=== PATIENT | male | born 1960 | race Caucasian/White ===

== ENCOUNTER → 2020-05-23 14:58 | Outpatient (BNVA) | payer MEDICARE, SELFPAY | PROVIDERS: PCP Internal Medicine; Referring Provider Internal Medicine; Visit Provider Internal Medicine | DX: R60.0 Localized edema (principal); R06.02 Shortness of breath; I10 Essential (primary) hypertension; G47.33 Obstructive sleep apnea (adult) (pediatric); E66.01 Morbid (severe) obesity due to excess calories; Z68.43 Body mass index [BMI] 50.0-59.9, adult; Z99.89 Dependence on other enabling machines and devices | CPT/HCPCS: 93005; 99212 ==

== ENCOUNTER → 2020-11-09 14:49 | Outpatient (REF) | payer MEDICARE, SELFPAY ==
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
== END ==
LOC: HO.CARD 14:49
PROVIDERS: Visit Provider Internal Medicine
DX: R60.0 Localized edema (principal)
CPT/HCPCS: 93306; Q9957

== ENCOUNTER → 2020-11-28 14:43 | Outpatient (BNVA) | payer MEDICARE, SELFPAY | PROVIDERS: PCP Internal Medicine; Visit Provider Internal Medicine | DX: R60.0 Localized edema (principal); R06.02 Shortness of breath; I10 Essential (primary) hypertension; G47.33 Obstructive sleep apnea (adult) (pediatric); E66.01 Morbid (severe) obesity due to excess calories; Z99.89 Dependence on other enabling machines and devices | CPT/HCPCS: 99212 ==

== ENCOUNTER → 2021-04-17 10:26 | Outpatient (BNVA) | payer MEDICARE, SELFPAY | PROVIDERS: PCP Internal Medicine; Visit Provider Surgery | DX: K62.89 Other specified diseases of anus and rectum (principal) | CPT/HCPCS: 99202 ==

== ENCOUNTER 2021-08-28 14:35 | Outpatient (REF) | payer MEDICARE, SELFPAY ==
[2021-08-28 16:25] LABS: Appearance Urine CLEAR; Color Urine YELLOW; Glucose Urine UA >=1000 MG/DL (NEG); Leukocyte Esterase Urine NEG (NEG); Nitrite Urine NEG (NEG); UACC Culture Trigger NO; Urine Blood TRACE (NEG); Urine Ketones 5 MG/DL (NEG); Urine Protein NEG (NEG-TRACE)
[2021-08-28 16:36] LABS: Estimated Average Glucose 258 mg/dL; Hemoglobin A1c % 10.6 %
[2021-08-28 16:49] LABS: RBC Urine 0-2 /HPF (0); Squamous Epithelial Cell Urine TRACE /LPF; WBC Urine 0-2 /HPF (0-4)
[2021-08-28 17:35] LABS: Alanine Aminotransferase 32 U/L (0-40); Alkaline Phosphatase 82 U/L (39-117); Anion Gap 12 (12-20); Aspartate Amino Transferase 22 U/L (5-37); Bilirubin Total 0.8 mg/dL (0.0-1.0); Blood Urea Nitrogen 19 mg/dL (9-16); Calcium 9.8 mg/dL (8.4-10.2); Carbon Dioxide 26 mmol/L (22-29); Chloride 103 mmol/L (96-108); Estimated Glomerular Filt Rate 60; Glucose Random 451 mg/dL (60-115); Potassium 4.4 mmol/L (3.3-5.1); Sodium 137 mmol/L (135-145); Total Protein 7.1 g/dL (6.5-8.0)
== END 2021-08-28 14:36 | disposition home or self-care (01) ==
LOC: HO.HMGCLDS 14:35
PROVIDERS: Visit Provider Physician Assistant
DX: R35.0 Frequency of micturition (principal)
CPT/HCPCS: 36415; 80053; 81001; 83036

== ENCOUNTER 2021-09-29 11:52 | Outpatient (REF) | payer MEDICARE, SELFPAY ==
--- NOTE | ~2021-09-29 | XR_ITS ---
EXAMINATION: XR BILATERAL HIPS WITH AP PELVIS CLINICAL INFORMATION: Hip pain COMPARISON: None TECHNIQUE: AP view of the pelvis is performed. Each hip is also imaged in AP and frog-lateral projections. There are total of 5 views. FINDINGS: Bony pelvis is intact and shows no destructive process. The SI joints and pubis show no diastases. There are degenerative changes lumbar spine with disc narrowing L3-L5. The hips show no fracture or dislocation or destructive process. There is no hip joint narrowing or erosive change or visible chondrocalcinosis. Soft tissue planes around the hips are unremarkable. XR/XR hip BI w PEL1V IMPRESSION: 1. Degenerative disc changes lower lumbar spine. 2. Unremarkable bilateral hips.
== END 2021-09-29 11:53 | disposition home or self-care (01) ==
LOC: HO.HMGCX 11:52
PROVIDERS: PCP Internal Medicine; Visit Provider Physician Assistant
DX: M25.552 Pain in left hip (principal)
CPT/HCPCS: 73521

== ENCOUNTER 2021-11-27 12:10 | Outpatient (REF) | payer MEDICARE, SELFPAY ==
[2021-11-27 13:43] LABS: Estimated Average Glucose 226 mg/dL; Hemoglobin A1c % 9.5 %
[2021-11-27 13:58] LABS: Alanine Aminotransferase 22 U/L (0-40); Albumin Level 3.9 g/dL (3.5-5.0); Alkaline Phosphatase 70 U/L (39-117); Anion Gap 12 (12-20); Aspartate Amino Transferase 17 U/L (5-37); Bilirubin Total 0.7 mg/dL (0.0-1.0); Blood Urea Nitrogen 20 mg/dL (9-16); Calcium 9.5 mg/dL (8.4-10.2); Carbon Dioxide 27 mmol/L (22-29); Chloride 102 mmol/L (96-108); Estimated Glomerular Filt Rate > 60; Glucose Random 221 mg/dL (60-115); Potassium 3.9 mmol/L (3.3-5.1); Sodium 137 mmol/L (135-145)
== END 2021-11-27 12:11 | disposition home or self-care (01) ==
LOC: HO.MANLDS 12:10
PROVIDERS: PCP Physician Assistant; Visit Provider Physician Assistant
DX: E11.9 Type 2 diabetes mellitus without complications (principal)
CPT/HCPCS: 36415; 80053; 83036

== ENCOUNTER → 2021-11-28 14:54 | Outpatient (BNVA) | payer MEDICARE, SELFPAY | PROVIDERS: PCP Internal Medicine; Visit Provider Internal Medicine | DX: I11.0 Hypertensive heart disease with heart failure (principal); I50.812 Chronic right heart failure; G47.33 Obstructive sleep apnea (adult) (pediatric); E66.01 Morbid (severe) obesity due to excess calories; Z99.89 Dependence on other enabling machines and devices; Z68.43 Body mass index [BMI] 50.0-59.9, adult | CPT/HCPCS: 93005; 99212 ==

== ENCOUNTER → 2022-02-13 08:19 | Outpatient (REF) | payer MEDICARE, SELFPAY ==
--- NOTE | 2022-02-13 08:22 | CA_ITS ---
Transthoracic Echocardiogram Patient (Last, First, Middle): George Guy M Gender: Male Date of : 1960 Age: 61 Procedure Date: 02/13/2022 Procedure Type: Transthoracic Echocardiogram Location: OP Height: 172.72 cm Weight: 151.96 kg BSA: 2.54 m2 Heart Rate: 63 bpm BP: 130 / 70 mmHg Well Tester: SB Referring MD: Dolores SAVAGE Symptoms: CHRONIC SYSTOLIC HF I50.22 Study Quality: Adequate w Contrast ECG Rhythm: Sinus Conclusions: - The left ventricular systolic function is normal. The calculated ejection fraction is 64% by biplane method. - No obvious valvular pathology seen on this study. Findings Procedure Information Contrast agent, definity, is being given per protocol without apparent complications. Left Ventricle Normal left ventricular cavity size. There is normal left ventricular wall thickness. The left ventricular systolic function is normal. The calculated ejection fraction is 64% by biplane method. There is no evidence of regional wall motion abnormalities. Diastolic function is normal for age. Right Ventricle Mildly increased right ventricular cavity size. There is normal right ventricular systolic function. Atria The left atrium is mildly dilated. The right atrium is normal in size. Aortic Valve There is a normal trileaflet aortic valve. There is no aortic valve stenosis. There is no aortic valve regurgitation. Mitral Valve The mitral valve appears normal. There is no mitral valve regurgitation. There is no mitral valve stenosis. Pulmonic Valve The pulmonic valve is likely normal. Tricuspid Valve There is trace tricuspid valve regurgitation. The pulmonary artery systolic pressure is normal. Great Vessels The aortic annulus, sinuses of valsalva, and asc aorta are normal in size. Venous The inferior vena cava was not well visualized. Pericardium/Pleural There is no evidence of pericardial effusion. Prior Study Comparison No significant change compared to prior study dated: 11/09/2020. Recommendations, Care & Conclusions No obvious valvular pathology seen on this study. Measurements 2D Linear Measurements IVSd: 0.90 0.6-0.9/0.6-1.0 cm LVIDd: 6.06 3.9-5.3/4.2-5.9 cm LVIDd Index: 2.39 2.4-3.2/2.2-3.1 cm/m2 LVIDs: 3.91 2.0-3.6 cm LVPWd: 1.11 0.7-1.1 cm LA Diam: 4.90 2.7-3.8/3.0-4.0 cm LAIDs Index: 1.93 1.5-2.3 cm/m2 LV Mass: 315.13 67-162/88-224 g LV Mass Index: 124.07 43-95/49-115 g/m2 LVOT Diam: 2.10 3.0+(-)1.3 cm 2D Systolic Function EF 4C: 63.80 >55% EF 2C: 65.90 >55% EF BiP: 63.70 >55% Mitral Valve MV Pk E: 0.87 MV PK A: 0.74 MV Decel Time: 163.00 E/A: 1.20 E'Lateral: 8.49 E'Medial: 6.85 E/E' Med: 12.60 E/E' Lat: 10.20 PHT: 48.00 MVA PHT: 4.58 Decel [place]: 5.32 Aortic Valve AoV Pk Yovanny: 1.41 AoV Mn Yovanny: 0.95 AoV VTI: 0.28 AoV Pk Grad: 8.00 Aov Mn Grad: 4.00 GAMAL Cont.VTI: 3.30 LVOT LVOT Pk Yovanny: 1.21 LVOT Mn Yovanny: 0.79 LVOT VTI: 0.27 LVOT Pk Grad: 6.00 LVOT Mn Grad: 3.00 LVOT Diam: 2.10 LVOT Area: 3.46 Diastolic Function MV Pk E: 0.87 MV Pk A: 0.74 E/A: 1.20 E'Medial: 6.85 E/E' Med: 12.60 E' Laterial: 8.49 E/E' Lat: 10.20 Right Ventricle TAPSE (mm): 17.80 TVS' Yovanny: 12.70 Tricuspid Valve TR Pk Yovanny: 2.63 TR Pk Grad: 28.00 RVSP: 28.00 Great Vessels Aorta Sinus of Valsalva: 3.30 2.0-3.5 cm Ao Asc: 3.10 2.1-3.4 cm Pulmonary Valve PV Pk Yovanny: 1.38 Peak PV Grad: 8.00 Updated in Other Vendor System with Status of Final Jnoathan Grace MD electronically signed on 02/14/2022 12:29:25 PM with status of Final
== END ==
LOC: HO.CARD 08:19
PROVIDERS: PCP Internal Medicine; Visit Provider Physician Assistant
DX: I50.22 Chronic systolic (congestive) heart failure (principal)
CPT/HCPCS: 93306; Q9957

== ENCOUNTER 2022-03-01 15:10 | Outpatient (REF) | payer MEDICARE, SELFPAY ==
[2022-03-01 16:45] LABS: Estimated Average Glucose 126 mg/dL
[2022-03-01 16:50] LABS: Alanine Aminotransferase 21 U/L (0-40); Albumin Level 4.2 g/dL (3.5-5.0); Alkaline Phosphatase 63 U/L (39-117); Anion Gap 15 (12-20); Aspartate Amino Transferase 18 U/L (5-37); Bilirubin Total 0.9 mg/dL (0.0-1.0); Blood Urea Nitrogen 20 mg/dL (9-16); Calcium 9.4 mg/dL (8.4-10.2); Carbon Dioxide 30 mmol/L (22-29); Chloride 101 mmol/L (96-108); Estimated Glomerular Filt Rate 54; Glucose Random 100 mg/dL (60-115); Potassium 4.1 mmol/L (3.3-5.1); Sodium 142 mmol/L (135-145); Total Protein 7.6 g/dL (6.5-8.0)
== END 2022-03-01 15:11 | disposition home or self-care (01) ==
LOC: HO.HMGCLDS 15:10
PROVIDERS: PCP Internal Medicine; Visit Provider Physician Assistant
DX: E11.9 Type 2 diabetes mellitus without complications (principal)
CPT/HCPCS: 36415; 80053; 83036

== ENCOUNTER 2022-05-31 08:12 | Outpatient (REF) | payer MEDICARE, SELFPAY ==
[2022-05-31 11:32] LABS: Estimated Average Glucose 128 mg/dL; Hemoglobin A1c % 6.1 %
== END 2022-05-31 08:13 | disposition home or self-care (01) ==
LOC: HO.HMGCLDS 08:12
PROVIDERS: PCP Internal Medicine; Visit Provider Physician Assistant
DX: E11.9 Type 2 diabetes mellitus without complications (principal)
CPT/HCPCS: 36415; 83036

== ENCOUNTER 2022-09-07 13:39 | Outpatient (REF) | payer MEDICARE, SELFPAY ==
[2022-09-07 16:58] LABS: Appearance Urine Turbid; Color Urine Yellow; Glucose Urine UA Negative (Negative); Leukocyte Esterase Urine Negative (Negative); Nitrite Urine Negative (Negative); PH 5.5 (5.0-9.0); Urine Blood Negative (Negative); Urine Ketones Negative (Negative); Urine Protein Negative (Neg-Trace)
[2022-09-07 17:00] LABS: Estimated Average Glucose 123 mg/dL; Hemoglobin A1c % 5.9 %
[2022-09-07 17:14] LABS: Alanine Aminotransferase 22 U/L (0-40); Albumin Level 4.2 g/dL (3.5-5.0); Alkaline Phosphatase 64 U/L (39-117); Anion Gap 15 (12-20); Aspartate Amino Transferase 17 U/L (5-37); Blood Urea Nitrogen 26 mg/dL (9-16); Calcium 9.4 mg/dL (8.4-10.2); Carbon Dioxide 27 mmol/L (22-29); Chloride 104 mmol/L (96-108); Estimated Glomerular Filt Rate > 60; Glucose Random 98 mg/dL (60-115); Sodium 142 mmol/L (135-145)
== END 2022-09-07 13:40 | disposition home or self-care (01) ==
LOC: HO.HMGCLDS 13:39
PROVIDERS: PCP Internal Medicine; Visit Provider Physician Assistant
DX: R35.0 Frequency of micturition (principal)
CPT/HCPCS: 36415; 80053; 81003; 83036

== ENCOUNTER 2022-09-12 12:14 | Outpatient (REF) | payer MEDICARE, SELFPAY ==
--- NOTE | ~2022-09-12 | XR_ITS ---
EXAMINATION: XR SHOULDER, LEFT CLINICAL INFORMATION: Pain COMPARISON: None TECHNIQUE: AP external rotation, Grashey, scapular Y, and axillary views of the left shoulder. FINDINGS: No acute fracture or dislocation. There is joint space narrowing and subchondral cystic changes. Degenerative changes of the acromioclavicular joint. XR/XR shoulder LT min 2V IMPRESSION: Moderate degenerative changes of the left shoulder joint.
== END 2022-09-12 12:15 | disposition home or self-care (01) ==
LOC: HO.HMGCX 12:14
PROVIDERS: PCP Internal Medicine; Visit Provider Physician Assistant
DX: M25.512 Pain in left shoulder (principal)
CPT/HCPCS: 73030

== ENCOUNTER 2022-12-01 06:57 | Outpatient (REF) | payer MEDICARE, SELFPAY ==
[2022-12-01 11:30] LABS: MANUAL DIFF FLAG NO
[2022-12-01 11:32] LABS: Basophils Absolute Auto 0.1 X10*3/uL (0.0-0.2); Basophils Percent Auto 0.7 % (0-2); Eosinophils Absolute Auto 0.1 X10*3/uL (0.0-0.4); Eosinophils Percent Auto 1.1 % (0-4); Hematocrit 41.9 % (42.0-52.0); Hemoglobin 13.6 g/dl (14.0-18.0); Imm Gran Abs Auto 0.11 X10*3/uL (0.00-0.03); Imm Gran Pct Auto 1.3 % (0.0-0.4); Lymphocytes Absolute Auto 2.4 X10*3/uL (1.2-4.9); Lymphocytes Percent Auto 29.6 % (20-40); Mean Corpuscular HGB Conc 32.5 g/dl (31.0-36.0); Mean Corpuscular Hemoglobin 29.5 pg (27.0-33.0); Mean Corpuscular Volume 90.9 fL (80.0-98.0); Mean Platelet Volume 11.1 fL (9.4-12.4); Monocytes Absolute Auto 0.7 X10*3/uL (0.1-1.2); Neutrophils Absolute Auto 4.9 x10*3/uL (2.0-8.3); Neutrophils Percent Auto 59.3 % (45-73); Platelet Count 248 X10*3/uL (160-400); Red Blood Count 4.61 X10*6/uL (4.60-5.80); Red Cell Distribution Width 13.4 % (11.0-16.0); White Blood Count 8.2 X10*3/uL (4.8-10.8)
[2022-12-01 11:44] LABS: Estimated Average Glucose 123 mg/dL; Hemoglobin A1C 148.9588 umol/L; Hemoglobin A1c % 5.9 %
[2022-12-01 11:55] LABS: Alanine Aminotransferase 21 U/L (0-40); Albumin Level 4.1 g/dL (3.5-5.0); Alkaline Phosphatase 62 U/L (39-117); Anion Gap 13 (12-20); Aspartate Amino Transferase 15 U/L (5-37); Blood Urea Nitrogen 30 mg/dL (9-16); Calcium 9.3 mg/dL (8.4-10.2); Carbon Dioxide 27 mmol/L (22-29); Chloride 107 mmol/L (96-108); Cholesterol 175 mg/dL; Estimated Glomerular Filt Rate > 60; Glucose Fasting 127 mg/dL (60-99); HDL Cholesterol 45 mg/dL; LDL Cholesterol Calculated 101 mg/dl; Potassium 4.3 mmol/L (3.3-5.1); Sodium 143 mmol/L (135-145); Triglycerides 145 mg/dL
[2022-12-01 11:58] LABS: Creatinine Urine 194.67 mg/dL; Microalbum/Creatinine Ratio Ur 4.1 ug/mg cr
== END 2022-12-01 06:58 | disposition home or self-care (01) ==
LOC: HO.HMGCLDS 06:57
PROVIDERS: PCP Internal Medicine; Visit Provider Physician Assistant
DX: E11.9 Type 2 diabetes mellitus without complications (principal)
CPT/HCPCS: 36415; 80053; 80061; 82043; 83036; 85025

== ENCOUNTER 2023-01-31 15:10 | Outpatient (REF) | payer MEDICARE, SELFPAY ==
[2023-01-31 17:07] LABS: Alanine Aminotransferase 25 U/L (0-40); Albumin Level 4.3 g/dL (3.5-5.0); Alkaline Phosphatase 71 U/L (39-117); Aspartate Amino Transferase 17 U/L (5-37); Bilirubin Direct 0.3 mg/dL (0.0-0.5); Bilirubin Total 1.1 mg/dL (0.0-1.0); Total Protein 7.8 g/dL (6.5-8.0)
== END 2023-01-31 15:11 | disposition home or self-care (01) ==
LOC: HO.HMGCLDS 15:10
PROVIDERS: PCP Internal Medicine; Visit Provider Podiatrist
DX: B35.1 Tinea unguium (principal)
CPT/HCPCS: 36415; 80076

== ENCOUNTER 2023-02-18 13:33 | Outpatient (AMB) | payer MEDICARE, SELFPAY ==
--- NOTE | 2023-02-18 13:38 | MHC.OFFVIS ---
Intake Vital Signs 02/18/23 13:40 Height 5 ft 9 in Weight 350 lb 8.56 oz BMI 51.8 BP 136/76 Blood Pressure Location Lt brachial Position Sitting Pulse 67 Intake Visit Reasons: 1 year follow up Intake Note: 1 year follow up Financial Legal Assistant Required: No Accompanied by: Self / Same As Patient Allergies No Known Allergies [No Known Allergies*] Allergy (Verified 02/18/23 13:40) Medication List - Last Reconciled 02/18/23 by Jonathan Grace MD bumetanide 2 mg PO DAILY famotidine 40 mg PO BID lisinopril 20 mg PO BID meloxicam 15 mg PO DAILY metformin ER 500 mg PO DAILY metoprolol succinate ER 25 mg PO DAILY HPI HPI Comments History of Present Illness Details George returns for follow-up regarding leg swelling. Thought to be mainly related to obesity and right heart failure. He also has obstructive sleep apnea on CPAP. He has previously seen vascular physician at [facility] and was felt that the swelling was rather systemic in etiology and not localized venous. Overall, he states he is doing fine. No clear complaints like angina or shortness of breath the limits of his activity. No significant leg swelling 2. In the past, no known coronary disease myocardial infarction or cardiomyopathy. Generally, seems to be getting along fine. [facility] Medical History (Updated 11/28/21 @ 15:20 by Jonathan Grace MD) Anal pain Chronic right heart failure Essential hypertension Leg edema Morbid obesity due to excess calories GAYATHRI on CPAP SOB (shortness of breath) Surgical History History of ankle surgery History of hydrocelectomy Family History Father No problems noted. Mother No problems noted. Review of Systems Const Denies weakness ENT Denies dizziness Card Denies chest pain, Denies chest pain with activity, Denies syncope, Denies rapid heart rate, Denies pedal edema, Denies edema, Denies leg edema, Denies lightheadedness, Denies palpitations, Denies dyspnea, Denies dyspnea on exertion and Denies orthopnea Resp Denies cough, Denies dyspnea and Denies dyspnea on exertion GI Denies hematochezia and Denies change in stool character Musc Denies abnormal gait, Denies muscle cramps, Denies muscle weakness, Denies numbness, Denies radiating pain into limb and Denies tingling Neuro Denies abnormal gait, Denies dizziness, Denies syncope, Denies numbness, Denies tingling and Denies weakness Endo Denies palpitations Physical Exam Vital Signs: Last Vital Signs Pulse 67 02/18/23 13:40 BP 136/76 02/18/23 13:40 BMI result Body Mass Index 51.8 Const General: comfortable and no acute distress Orientation/consciousness: patient oriented x3 HEENT Other: Unremarkable Head: Yes normal to inspection Neck Neck: Yes normal visual inspection Chest Chest palpation & inspection: normal inspection of the chest Resp Auscultation: clear to auscultation bilaterally Cardio Palpation: normal PMI Heart sounds: S1 normal heart sound present, S2 normal heart sound present, no gallops, no murmurs and no rubs GI Palpation (GI): Soft to palpation Back/Spine/Pelvis Other: unremarkable Skin General skin exam: no rashes or lesions noted Neuro General: patient oriented x3 Extrem General: Yes normal to inspection Psych Mental Status: mental status grossly normal Office Procedures EKG Details: EKG has baseline artifact. Underlying rhythm is sinus 67/Min; no overt ST-T changes. Normal NC/[place]. [id number], Complete Assessment & Plan Assessment & Plan (1) Chronic right heart failure: Code(s): I50.812 - Chronic right heart failure Plan: Cardiac studies reviewed. Echocardiogram with LVEF 65-70%; no significant valvular pathology or pulmonary hypertension. In the previous study, there was mild pulmonary hypertension. Stress myocardial perfusion imaging study does not show any ischemia or infarction. Cardiac BNP in the past well within normal limits but could be false negative due to obesity. Overall, he does not really have any major volume overload. Leg swelling looks well controlled. Continue Bumex. Last creatinine is 1.12. BUN is 30. Potassium 4.3. (2) Essential hypertension: Code(s): I10 - Essential (primary) hypertension Plan: Stable. No changes with lisinopril/metoprolol. (3) GAYATHRI on CPAP: Code(s): G47.33 - Obstructive sleep apnea (adult) (pediatric); Z99.89 - Dependence on other enabling machines and devices Plan: Continue CPAP. (4) Morbid obesity due to excess calories: Code(s): E66.01 - Morbid (severe) obesity due to excess calories Plan: He is still markedly overweight, but not sure if he can lose any meaningful weight. In the past, he did not want to do any weight loss surgery as there was a concern with his 's health. She just got a liver transplant. Plan Follow-up in 1 year. Coding Level of Care Code Est Pt Level 4 (92904) Diagnoses Chronic right heart failure I50.812 Essential hypertension I10 GAYATHRI on CPAP G47.33; Z99.89 Morbid obesity due to excess calories E66.01 CPT Codes EKG - CPT: 56752-[id number], Complete ([id number])
[2023-02-18 13:40] VITALS: BP 136/76; PULSE 67; BMI 51.8
== END 2023-02-18 13:57 | disposition home or self-care (01) ==
PROVIDERS: PCP Internal Medicine; Referring Provider Internal Medicine; Visit Provider Internal Medicine
DX: I50.812 Chronic right heart failure (principal); I10 Essential (primary) hypertension; G47.33 Obstructive sleep apnea (adult) (pediatric); Z99.89 Dependence on other enabling machines and devices; E66.01 Morbid (severe) obesity due to excess calories
CPT/HCPCS: 93010; 99214

== ENCOUNTER → 2023-02-18 13:33 | Outpatient (BNVA) | payer MEDICARE, SELFPAY | PROVIDERS: PCP Internal Medicine; Referring Provider Internal Medicine; Visit Provider Internal Medicine | DX: I11.0 Hypertensive heart disease with heart failure (principal); I50.812 Chronic right heart failure; G47.33 Obstructive sleep apnea (adult) (pediatric); E66.01 Morbid (severe) obesity due to excess calories; Z99.89 Dependence on other enabling machines and devices; Z68.43 Body mass index [BMI] 50.0-59.9, adult | CPT/HCPCS: 93005; 99212 ==

== ENCOUNTER 2023-05-09 06:22 | Outpatient (REF) | payer MEDICARE, SELFPAY ==
[2023-05-09 11:04] LABS: MANUAL DIFF FLAG NO
[2023-05-09 11:28] LABS: Basophils Absolute Auto 0.1 X10*3/uL (0.0-0.2); Basophils Percent Auto 1.1 % (0-2); Eosinophils Absolute Auto 0.1 X10*3/uL (0.0-0.4); Eosinophils Percent Auto 1.5 % (0-4); Hematocrit 38.9 % (42.0-52.0); Hemoglobin 12.9 g/dl (14.0-18.0); Imm Gran Abs Auto 0.08 X10*3/uL (0.00-0.03); Imm Gran Pct Auto 1.1 % (0.0-0.4); Lymphocytes Absolute Auto 2.2 X10*3/uL (1.2-4.9); Lymphocytes Percent Auto 29.2 % (20-40); Mean Corpuscular HGB Conc 33.2 g/dl (31.0-36.0); Mean Corpuscular Volume 90.5 fL (80.0-98.0); Monocytes Absolute Auto 0.7 X10*3/uL (0.1-1.2); Monocytes Percent Auto 9.1 % (2-11); Neutrophils Absolute Auto 4.3 x10*3/uL (2.0-8.3); Platelet Count 234 X10*3/uL (160-400); Red Cell Distribution Width 13.2 % (11.0-16.0); White Blood Count 7.5 X10*3/uL (4.8-10.8)
[2023-05-09 11:31] LABS: Estimated Average Glucose 140 mg/dL; Hemoglobin A1c % 6.5 % (<6.0)
[2023-05-09 12:06] LABS: Alanine Aminotransferase 26 U/L (0-40); Albumin Level 3.8 g/dL (3.5-5.0); Alkaline Phosphatase 60 U/L (39-117); Anion Gap 15 (12-20); Aspartate Amino Transferase 18 U/L (5-37); Bilirubin Total 0.7 mg/dL (0.0-1.0); Blood Urea Nitrogen 18 mg/dL (9-16); Calcium 9.4 mg/dL (8.4-10.2); Carbon Dioxide 25 mmol/L (22-29); Chloride 104 mmol/L (96-108); Cholesterol 170 mg/dL (<200); Estimated Glomerular Filt Rate > 60; Glucose Random 142 mg/dL (60-115); HDL Cholesterol 40 mg/dL (>40); LDL Cholesterol Calculated 100 mg/dL (<100); Potassium 3.3 mmol/L (3.3-5.1); Sodium 141 mmol/L (135-145); Triglycerides 154 mg/dL (<150)
[2023-05-09 12:57] LABS: Alanine Aminotransferase 24 U/L (0-40); Albumin Level 3.7 g/dL (3.5-5.0); Alkaline Phosphatase 60 U/L (39-117); Aspartate Amino Transferase 18 U/L (5-37); Bilirubin Direct 0.2 mg/dL (0.0-0.5); Bilirubin Total 0.7 mg/dL (0.0-1.0); Total Protein 6.9 g/dL (6.5-8.0)
[2023-05-09 13:28] LABS: Creatinine Urine 212.48 mg/dL; Microalbum/Creatinine Ratio Ur 7.5 ug/mg cr (<30)
== END 2023-05-09 06:23 | disposition home or self-care (01) ==
LOC: HO.HMGCLDS 06:22
PROVIDERS: Physician Assistant; PCP Internal Medicine; Visit Provider Podiatrist
DX: B35.1 Tinea unguium (principal); E11.9 Type 2 diabetes mellitus without complications
CPT/HCPCS: 36415; 80053; 80061; 80076; 82043; 82248; 82570; 83036; 85025

== ENCOUNTER 2023-08-14 14:17 | Outpatient (AMB) | payer MEDICARE, SELFPAY ==
[2023-08-14 14:26] VITALS: BP 150/82; PULSE 80; O2SAT 97; BMI 52.2
--- NOTE | 2023-08-14 14:26 | A.OFFVIS_ITS ---
Intake Vital Signs 08/14/23 14:26 Height 5 ft 9 in Weight 353 lb 13.471 oz BMI 52.2 BP 150/82 H Blood Pressure Location Lt brachial Position Sitting Pulse 80 Pulse Source Pulse Oximeter Pulse Oximetry (%) 97 Oxygen Delivery Method Room Air Intake Visit Reasons: Obstructive sleep apnea Intake Note: pt is here for a long over due follow up and GAYATHRI, has new resperonics and need to check settings to start. [employer] Developer Required: No Allergies No Known Allergies [No Known Allergies*] Allergy (Verified 08/14/23 14:40) Medication List - Last Reconciled 08/14/23 by Ade Murrell MD bumetanide 2 mg PO DAILY famotidine 40 mg PO BID lisinopril 20 mg PO BID meloxicam 15 mg PO DAILY metformin ER 500 mg PO DAILY metoprolol succinate ER 25 mg PO DAILY tamsulosin 0.4 mg PO BEDTIME Do you need a note to return to daycare/school/sports/work: No HPI Obstructive sleep apnea HPI Details This 63 years old gentleman is coming for follow-up after about 3-4 year. He has been morbidly obese, diagnosed to have obstructive sleep apnea back in 2013, and has been using CPAP since then with pressure of 14 cm. He was last seen by me in the office in 2019 and since then has been using the CPAP on his own. More recently he got a new CPAP model, with auto PAP setting of 5-20 cms However he has not started using this new model, still using the old CPAP machine. On a regular basis He say is that with the CPAP device he sleeps well and denies any daytime sleepiness. He has not been able to lose any weight , He has the diabetes mellitus, stasis edema of the legs, arthritis of the knees, and chronic low back, thus he is not able to do any walking jogging of or any back exercises. [facility] Medical History Chronic right heart failure Anal pain Morbid obesity due to excess calories GAYATHRI on CPAP Essential hypertension SOB (shortness of breath) Leg edema Surgical History History of ankle surgery History of hydrocelectomy Family History Father No problems noted. Mother No problems noted. Social History Patient Tobacco Use Status: Never used Tobacco Review of Systems Const Denies chills, Denies fatigue, Denies fever(s), Denies frequent falls, Denies weakness, Denies weight gain and Denies weight loss ENT Denies dizziness Card Denies chest pain, Denies leg edema, Denies lightheadedness, Denies palpitations, Denies dyspnea, Denies dyspnea on exertion, Denies orthopnea and Denies other (Loss of consciousness) Resp Denies cough, Denies dyspnea and Denies dyspnea on exertion GI Denies hematochezia and Denies change in bowel habits Musc Denies abnormal gait, Denies muscle weakness, Denies numbness, Denies radiating pain into limb and Denies tingling Neuro Denies abnormal gait, Denies dizziness, Denies frequent falls, Denies numbness, Denies tingling and Denies weakness Endo Denies fatigue and Denies palpitations Physical Exam Vital Signs: Last Vital Signs Pulse 80 08/14/23 14:26 BP 150/82 H 08/14/23 14:26 Pulse Ox 97 08/14/23 14:26 Oxygen Delivery Method Room Air 08/14/23 14:26 BMI result Body Mass Index 52.2 He is morbidly obese Const General: comfortable, no acute distress, alert and awake Orientation/consciousness: patient oriented x3 HEENT Head: Yes normal to inspection General nose exam: No nasal polyps present and No nasal discharge present Face and sinus: Yes sinuses nontender Mouth: oropharynx normal (Very narrow oropharynx, Mallampati class 4) Throat: Yes posterior oropharynx normal Eyes General: appearance normal, both eyes and all related structures Neck Neck: Yes normal visual inspection, Yes no lymphadenopathy, Yes trachea midline and Yes no JVD Thyroid: Thyroid normal Chest Chest palpation & inspection: normal inspection of the chest, normal palpation of entire chest wall and no tenderness Resp Effort & Inspection: normal respiratory effort and other (Breath sounds are decreased over the basilar areas) Auscultation: clear to auscultation bilaterally, no rales and no wheezes Cardio Palpation: PMI not normal (Not palpable) Rate: regular rate Rhythm: regular rhythm Heart sounds: no gallops and no murmurs GI Palpation (GI): Soft to palpation, nontender, No hepatosplenomegaly present, no masses and Other GI palpation findings present Auscultation: normal bowel sounds Back/Spine/Pelvis Thoracic/Lumbar Spine: thoracic and lumbar spine normal to inspection and thoraco-lumbar ROM limited Skin General skin exam: no rashes or lesions noted Neuro General: patient oriented x3 and no focal motor deficits Cranial nerves: Yes CN's II-XII intact bilaterally Extrem General: Yes normal to inspection, Yes no clubbing, cyanosis or edema and Yes no calf tenderness Psych Speech and movement: Normal speech and movement present Assessment & Plan Assessment & Plan (1) Morbid obesity due to excess calories: Comment: This gentleman is a case of super morbid obesity. Over the past many years he has not been able to lose any weight. He does not want to join any weight management program. He is also not able to do any significant exercise. Code(s): E66.01 - Morbid (severe) obesity due to excess calories Plan: I talked to him about his weight issue at length, Advised that he should try to cut down the calories intake, especially reduce the use of carbohydrates (2) GAYATHRI on CPAP: Comment: We have checked his new CPAP machine. It is functional. Showed him how to use it. He will need full face mask. Order for supplies is sent Code(s): G47.33 - Obstructive sleep apnea (adult) (pediatric); Z99.89 - Dependence on other enabling machines and devices Plan: as above Coding Level of Care Code Est Pt Level 4 (24106) Diagnoses Morbid obesity due to excess calories E66.01 GAYATHRI on CPAP G47.33; Z99.89
== END 2023-08-14 15:02 | disposition home or self-care (01) ==
PROVIDERS: PCP Internal Medicine; Visit Provider Internal Medicine
DX: E66.01 Morbid (severe) obesity due to excess calories (principal); G47.33 Obstructive sleep apnea (adult) (pediatric); Z99.89 Dependence on other enabling machines and devices
CPT/HCPCS: 99214

== ENCOUNTER → 2023-08-14 14:17 | Outpatient (BNVA) | payer MEDICARE, SELFPAY | PROVIDERS: PCP Internal Medicine; Visit Provider Internal Medicine | DX: G47.33 Obstructive sleep apnea (adult) (pediatric) (principal); E66.01 Morbid (severe) obesity due to excess calories; Z99.89 Dependence on other enabling machines and devices; Z68.43 Body mass index [BMI] 50.0-59.9, adult | CPT/HCPCS: 99212 ==

== ENCOUNTER → 2023-10-08 13:52 | Outpatient (REF) | payer MEDICARE, SELFPAY | LOC: HO.SL 13:52 | PROVIDERS: PCP Internal Medicine; Visit Provider Internal Medicine | DX: G47.33 Obstructive sleep apnea (adult) (pediatric) (principal); Z99.89 Dependence on other enabling machines and devices | CPT/HCPCS: 95806 ==

== ENCOUNTER → 2023-10-08 14:05 | Outpatient (BNV) | payer MEDICARE, SELFPAY | PROVIDERS: PCP Internal Medicine; Visit Provider Internal Medicine | DX: G47.33 Obstructive sleep apnea (adult) (pediatric) (principal) | CPT/HCPCS: 95806 ==

== ENCOUNTER 2023-10-14 15:39 | Outpatient (AMB) | payer MEDICARE, SELFPAY ==
[2023-10-14 15:45] VITALS: BP 120/72; PULSE 75; O2SAT 97; BMI 52.4
--- NOTE | 2023-10-14 15:45 | A.OFFVIS_ITS ---
Intake Vital Signs 10/14/23 15:45 Height 5 ft 9 in Weight 354 lb 15.108 oz BMI 52.4 BP 120/72 Blood Pressure Location Lt brachial Position Sitting Pulse 75 Pulse Source Pulse Oximeter Pulse Oximetry (%) 97 Oxygen Delivery Method Room Air Intake Visit Reasons: Obstructive sleep apnea Intake Note: pt is here for follow up sleep study that was repeated to confirm GAYATHRI. and for replacement machine to be ordered. Physician General Internal Medicine Required: No Allergies No Known Allergies [No Known Allergies*] Allergy (Verified 10/14/23 16:08) Medication List - Last Reconciled 10/14/23 by Ade Murrell MD bumetanide 2 mg PO DAILY famotidine 40 mg PO BID lisinopril 20 mg PO BID meloxicam 15 mg PO DAILY metformin ER 500 mg PO BID metoprolol succinate ER 25 mg PO DAILY Do you need a note to return to daycare/school/sports/work: No HPI Obstructive sleep apnea HPI Details This 63 years old gentleman is a case of morbid obesity and severe obstructive sleep apnea. He has used CPAP for more than 10 years. He is reason nasal CPAP device was on recall, he was given a replacement device which he has been using, But he does not like the pressure settings. We are not able to get any compliance data from that model. He is not able to sleep without using the CPAP. And remains somewhat tired during the daytime. He has not able to lose much weight. [facility] Medical History Chronic right heart failure Anal pain Morbid obesity due to excess calories GAYATHRI on CPAP Essential hypertension SOB (shortness of breath) Leg edema Surgical History History of ankle surgery History of hydrocelectomy Family History Father No problems noted. Mother No problems noted. Social History Patient Tobacco Use Status: Never used Tobacco Review of Systems Const Denies chills, Denies fatigue, Denies fever(s), Denies frequent falls, Denies weakness, Denies weight gain and Denies weight loss ENT Denies dizziness Card Denies chest pain, Denies leg edema, Denies lightheadedness, Denies palpitations, Denies dyspnea, Denies dyspnea on exertion, Denies orthopnea and Denies other (Loss of consciousness) Resp Denies cough, Denies dyspnea and Denies dyspnea on exertion GI Denies hematochezia and Denies change in bowel habits Musc Denies abnormal gait, Denies muscle weakness, Denies numbness, Denies radiating pain into limb and Denies tingling Neuro Denies abnormal gait, Denies dizziness, Denies frequent falls, Denies numbness, Denies tingling and Denies weakness Endo Denies fatigue and Denies palpitations Physical Exam Vital Signs: Last Vital Signs Pulse 75 10/14/23 15:45 BP 120/72 10/14/23 15:45 Pulse Ox 97 10/14/23 15:45 Oxygen Delivery Method Room Air 10/14/23 15:45 BMI result Body Mass Index 29.1 He is morbidly obese Const General: comfortable, no acute distress, alert and awake Orientation/consciousness: patient oriented x3 HEENT Head: Yes normal to inspection General nose exam: No nasal polyps present and No nasal discharge present Face and sinus: Yes sinuses nontender Mouth: oropharynx normal (Very narrow oropharynx, Mallampati class 4) Throat: Yes posterior oropharynx normal Eyes General: appearance normal, both eyes and all related structures Neck Neck: Yes normal visual inspection, Yes no lymphadenopathy, Yes trachea midline and Yes no JVD Thyroid: Thyroid normal Chest Chest palpation & inspection: normal inspection of the chest, normal palpation of entire chest wall and no tenderness Resp Effort & Inspection: normal respiratory effort and other (Breath sounds are decreased over the basilar areas) Auscultation: clear to auscultation bilaterally, no rales and no wheezes Cardio Palpation: PMI not normal (Not palpable) Rate: regular rate Rhythm: regular rhythm Heart sounds: no gallops and no murmurs GI Palpation (GI): Soft to palpation, nontender, No hepatosplenomegaly present, no masses and Other GI palpation findings present Auscultation: normal bowel sounds Back/Spine/Pelvis Thoracic/Lumbar Spine: thoracic and lumbar spine normal to inspection and thoraco-lumbar ROM limited Skin General skin exam: no rashes or lesions noted Neuro General: patient oriented x3 and no focal motor deficits Cranial nerves: Yes CN's II-XII intact bilaterally Extrem General: Yes normal to inspection, Yes no clubbing, cyanosis or edema and Yes no calf tenderness Psych Speech and movement: Normal speech and movement present Results Reviewed Results Reviewed: Home-based sleep study is consistent with very severe obstructive sleep apnea and total sleep time AHI 62. Snoring for 6% of the sleep time. A borderline nocturnal hypoxemia was present with O2 sat below 88% for 5 minutes Assessment & Plan Assessment & Plan (1) Morbid obesity due to excess calories: Comment: This gentleman is a case of super morbid obesity. Over the past many years he has not been able to lose any weight. He does not want to join any weight management program. He is also not able to do any significant exercise. Code(s): E66.01 - Morbid (severe) obesity due to excess calories Plan: Had a good talk about the weight management. With the help of his he is going to try to cut down calories intake. At this point he is not able to. do much exercise (2) GAYATHRI on CPAP: Comment: Explained to him the findings of the sleep study. He definitely needs to use CPAP every night. We will request a new model that so that we can monitor his compliance. Pressure setting will be 6-20 cm, using a fullface mask . Code(s): G47.33 - Obstructive sleep apnea (adult) (pediatric); Z99.89 - Dependence on other enabling machines and devices Plan: Instructions for using the CPAP are given. Recheck in 6-8 weeks to go over his compliance. Coding Level of Care Code Est Pt Level 3 (63539) Diagnoses Morbid obesity due to excess calories E66.01 GAYATHRI on CPAP G47.33; Z99.89
== END 2023-10-14 16:05 | disposition home or self-care (01) ==
PROVIDERS: PCP Internal Medicine; Visit Provider Internal Medicine
DX: E66.01 Morbid (severe) obesity due to excess calories (principal); G47.33 Obstructive sleep apnea (adult) (pediatric); Z99.89 Dependence on other enabling machines and devices
CPT/HCPCS: 99213

== ENCOUNTER → 2023-10-14 15:39 | Outpatient (BNVA) | payer MEDICARE, SELFPAY | PROVIDERS: PCP Internal Medicine; Visit Provider Internal Medicine | DX: G47.33 Obstructive sleep apnea (adult) (pediatric) (principal); E66.01 Morbid (severe) obesity due to excess calories; Z99.89 Dependence on other enabling machines and devices | CPT/HCPCS: 99212 ==

== ENCOUNTER 2023-12-02 15:27 | Outpatient (AMB) | payer MEDICARE, SELFPAY ==
--- NOTE | 2023-12-02 15:39 | A.OFFVIS_ITS ---
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 Sleeping well. He has a slight air leak when he changes his position. Overall he tolerates the nasal mask well. He is sleeping more than 6 hours every. night and wakes up refreshed His weight remains unchanged. [facility] Medical History Chronic right heart failure Anal pain Morbid obesity due to excess calories GAYATHRI on CPAP Essential hypertension SOB (shortness of breath) Leg edema Surgical History History of ankle surgery History of hydrocelectomy Family History Father No problems noted. Mother No problems noted. Social History Patient Tobacco Use Status: Never used Tobacco Review of Systems Const Denies chills, Denies fatigue, Denies fever(s), Denies frequent falls, Denies weakness, Denies weight gain and Denies weight loss ENT Denies dizziness Card Denies chest pain, Denies leg edema, Denies lightheadedness, Denies palpitations, Denies dyspnea, Denies dyspnea on exertion, Denies orthopnea and Denies other (Loss of consciousness) Resp Denies cough, Denies dyspnea and Denies dyspnea on exertion GI Denies hematochezia and Denies change in bowel habits Musc Denies abnormal gait, Denies muscle weakness, Denies numbness, Denies radiating pain into limb and Denies tingling Neuro Denies abnormal gait, Denies dizziness, Denies frequent falls, Denies numbness, Denies tingling and Denies weakness Endo Denies fatigue and Denies palpitations Physical Exam Vital Signs: Last Vital Signs Pulse 74 12/02/23 15:41 BP 130/78 12/02/23 15:41 Pulse Ox 96 12/02/23 15:41 Oxygen Delivery Method Room Air 12/02/23 15:41 BMI result Body Mass Index 52.1 He is morbidly obese Const General: comfortable, no acute distress, alert and awake Orientation/consciousness: patient oriented x3 HEENT Head: Yes normal to inspection General nose exam: No nasal polyps present and No nasal discharge present Face and sinus: Yes sinuses nontender Mouth: oropharynx normal (Very narrow oropharynx, Mallampati class 4) Throat: Yes posterior oropharynx normal Eyes General: appearance normal, both eyes and all related structures Neck Neck: Yes normal visual inspection, Yes no lymphadenopathy, Yes trachea midline and Yes no JVD Thyroid: Thyroid normal Chest Chest palpation & inspection: normal inspection of the chest, normal palpation of entire chest wall and no tenderness Resp Effort & Inspection: normal respiratory effort and other (Breath sounds are decreased over the basilar areas) Auscultation: clear to auscultation bilaterally, no rales and no wheezes Cardio Palpation: PMI not normal (Not palpable) Rate: regular rate Rhythm: regular rhythm Heart sounds: no gallops and no murmurs GI Palpation (GI): Soft to palpation, nontender, No hepatosplenomegaly present, no masses and Other GI palpation findings present Auscultation: normal bowel sounds Back/Spine/Pelvis Thoracic/Lumbar Spine: thoracic and lumbar spine normal to inspection and thoraco-lumbar ROM limited Skin General skin exam: no rashes or lesions noted Neuro General: patient oriented x3 and no focal motor deficits Cranial nerves: Yes CN's II-XII intact bilaterally Extrem General: Yes normal to inspection, Yes no clubbing, cyanosis or edema and Yes no calf tenderness Psych Speech and movement: Normal speech and movement present Results Reviewed Results Reviewed: Compliance report for the last 30 nights is reviewed. He has changed 30/30 nights,. 100% Average use it per. Night 6 hours 40 minutes Pressure used mostly 15-16 cm. No significant air leak. Residual AHI 1.3 Assessment & Plan Assessment & Plan (1) Morbid obesity due to excess calories: Comment: This gentleman is a case of super morbid obesity. Over the past many years he has not been able to lose any weight. He does not want to join any weight management program. He is also not able to do any significant exercise. Code(s): E66.01 - Morbid (severe) obesity due to excess calories Category: Medical Plan: Again encouraged to watch his diet and try to walk. on a daily basis Gradually lose some weight. (2) GAYATHRI on CPAP: Comment: He has history of obstructive sleep apnea for many years. Recently started on new CPAP machine . After a repeat sleep study He is very happy with the CPAP device and is using it regularly. He is using nasal mask which is comfortable In the past he has used nasal pillows which he did not tolerate. COMPLIANCE IS GOOD . WITH GOOD RESULTS Code(s): G47.33 - Obstructive sleep apnea (adult) (pediatric); Z99.89 - Dependence on other enabling machines and devices Category: Medical Plan: ADVISED TO CONTINUE USING CPAP EVERY NIGHT. WILL RECHECK IN 4 MONTHS. Coding Level of Care Code Est Pt Level 3 (04720) Diagnoses Morbid obesity due to excess calories E66.01 GAYATHRI on CPAP G47.33; Z99.89
[2023-12-02 15:41] VITALS: BP 130/78; PULSE 74; O2SAT 96; BMI 52.1
== END 2023-12-02 16:12 | disposition home or self-care (01) ==
PROVIDERS: PCP Internal Medicine; Visit Provider Internal Medicine
DX: E66.01 Morbid (severe) obesity due to excess calories (principal); G47.33 Obstructive sleep apnea (adult) (pediatric); Z99.89 Dependence on other enabling machines and devices
CPT/HCPCS: 99213

== ENCOUNTER → 2023-12-02 15:27 | Outpatient (BNVA) | payer MEDICARE, SELFPAY | PROVIDERS: PCP Internal Medicine; Visit Provider Internal Medicine | DX: G47.33 Obstructive sleep apnea (adult) (pediatric) (principal); E66.01 Morbid (severe) obesity due to excess calories; Z99.89 Dependence on other enabling machines and devices; Z68.43 Body mass index [BMI] 50.0-59.9, adult | CPT/HCPCS: 99212 ==

== ENCOUNTER 2024-01-27 13:29 | Outpatient (REF) | payer MEDICARE, SELFPAY | END 2024-01-27 13:30 | disposition home or self-care (01) | LOC: HO.SH 13:29 | PROVIDERS: Visit Provider Physician Assistant | DX: Z01.118 Encounter for examination of ears and hearing with other abnormal findings (principal); H93.12 Tinnitus, left ear; H91.93 Unspecified hearing loss, bilateral | CPT/HCPCS: 92557; 92567 ==

== ENCOUNTER 2024-02-12 12:09 | Outpatient (REF) | payer MEDICARE, SELFPAY ==
[2024-02-12 13:21] LABS: MANUAL DIFF FLAG NO
[2024-02-12 13:27] LABS: Basophils Absolute Auto 0.1 X10*3/uL (0.0-0.2); Eosinophils Absolute Auto 0.1 X10*3/uL (0.0-0.4); Eosinophils Percent Auto 1.1 % (0-4); Hematocrit 35.9 % (42.0-52.0); Imm Gran Abs Auto 0.16 X10*3/uL (0.00-0.03); Lymphocytes Absolute Auto 1.9 X10*3/uL (1.2-4.9); Lymphocytes Percent Auto 24.2 % (20-40); Mean Corpuscular HGB Conc 33.4 g/dl (31.0-36.0); Mean Corpuscular Hemoglobin 30.2 pg (27.0-33.0); Mean Corpuscular Volume 90.4 fL (80.0-98.0); Mean Platelet Volume 11.6 fL (9.4-12.4); Monocytes Absolute Auto 0.6 X10*3/uL (0.1-1.2); Monocytes Percent Auto 7.1 % (2-11); Neutrophils Absolute Auto 5.2 x10*3/uL (2.0-8.3); Neutrophils Percent Auto 64.6 % (45-73); Platelet Count 216 X10*3/uL (160-400); Red Blood Count 3.97 X10*6/uL (4.60-5.80); Red Cell Distribution Width 13.2 % (11.0-16.0)
[2024-02-12 13:45] LABS: Estimated Average Glucose 303 mg/dL; Hemoglobin A1c % 12.2 % (<6.0)
[2024-02-12 14:34] LABS: Alanine Aminotransferase 29 U/L (0-40); Albumin Level 3.8 g/dL (3.5-5.0); Alkaline Phosphatase 64 U/L (39-117); Anion Gap 14 (12-20); Aspartate Amino Transferase 20 U/L (5-37); Bilirubin Total 0.5 mg/dL (0.0-1.0); Blood Urea Nitrogen 18 mg/dL (9-16); Calcium 8.9 mg/dL (8.4-10.2); Carbon Dioxide 21 mmol/L (22-29); Chloride 108 mmol/L (96-108); Estimated Glomerular Filt Rate 46; Glucose Random 364 mg/dL (60-115); Sodium 139 mmol/L (135-145); Total Protein 6.8 g/dL (6.5-8.0)
== END 2024-02-12 12:10 | disposition home or self-care (01) ==
LOC: HO.HMGCLDS 12:09
PROVIDERS: PCP Internal Medicine; Visit Provider Physician Assistant
DX: E11.9 Type 2 diabetes mellitus without complications (principal)
CPT/HCPCS: 36415; 80053; 83036; 85025

== ENCOUNTER 2024-02-20 13:22 | Outpatient (AMB) | payer MEDICARE, SELFPAY ==
--- NOTE | 2024-02-20 13:27 | MHC.OFFVIS ---
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 Thought to be mainly related to obesity and right heart failure. He also has obstructive sleep apnea on CPAP. He has previously seen vascular physician at [facility] and was felt that the swelling was rather systemic in etiology and not localized venous. Overall, since last seen no new complaints. No angina or shortness of breath. Leg swelling is stable. Prior to this, no documented coronary disease or cardiomyopathy. [facility] Medical History Chronic right heart failure Anal pain Morbid obesity due to excess calories GAYATHRI on CPAP Essential hypertension SOB (shortness of breath) Leg edema Surgical History History of ankle surgery History of hydrocelectomy Family History Father No problems noted. Mother No problems noted. Social History Alcohol intake: former Patient Tobacco Use Status: Never used Tobacco Review of Systems Const Denies chills, Denies fatigue, Denies fever(s), Denies weight gain and Denies weight loss ENT Denies dizziness Card Denies chest pain, Reports leg edema, Denies lightheadedness, Denies palpitations, Denies dyspnea on exertion, Denies orthopnea and Denies other Resp Denies cough and Denies dyspnea on exertion GI Denies hematochezia and Denies change in stool character Musc Denies abnormal gait, Denies muscle weakness, Denies numbness, Denies radiating pain into limb and Denies tingling Neuro Denies abnormal gait, Denies dizziness, Denies numbness and Denies tingling Endo Denies fatigue and Denies palpitations Physical Exam Vital Signs: Last Vital Signs Pulse 72 02/20/24 13:30 BP 134/76 02/20/24 13:30 BMI result Body Mass Index 50.8 Const General: comfortable and no acute distress Orientation/consciousness: patient oriented x3 HEENT Other: Unremarkable Head: Yes normal to inspection Neck Neck: Yes normal visual inspection Chest Chest palpation & inspection: normal inspection of the chest Resp Auscultation: clear to auscultation bilaterally Cardio Palpation: normal PMI Heart sounds: S1 normal heart sound present, S2 normal heart sound present, no gallops, no murmurs and no rubs GI Palpation (GI): Soft to palpation Back/Spine/Pelvis Other: unremarkable Skin General skin exam: no rashes or lesions noted Neuro General: patient oriented x3 Extrem General: Yes normal to inspection Psych Mental Status: mental status grossly normal Assessment & Plan Assessment & Plan (1) Chronic right heart failure: Code(s): I50.812 - Chronic right heart failure Category: Medical Plan: Cardiac studies reviewed. Echocardiogram 2021 with LVEF 65-70%; no significant valvular pathology or pulmonary hypertension. In the previous study, there was mild pulmonary hypertension. Stress myocardial perfusion imaging study 2019 does not show any ischemia or infarction. Cardiac BNP in the past well within normal limits but could be false negative due to obesity. He is on Bumex but the most recent creatinine is slightly elevated. Advised him to try to go on alternate days but he is worried that his swelling might increase. In that case may have to accept a small degree of creatinine elevation. If necessary, consider Nephrology consult. He states he plans repeat labs next week and is due to see PCP. (2) Essential hypertension: Code(s): I10 - Essential (primary) hypertension Category: Medical Plan: Stable. Listed to be on metoprolol, lisinopril. (3) GAYATHRI on CPAP: Comment: He has history of obstructive sleep apnea for many years. Recently started on new CPAP machine . After a repeat sleep study He is very happy with the CPAP device and is using it regularly. He is using nasal mask which is comfortable In the past he has used nasal pillows which he did not tolerate. COMPLIANCE IS GOOD . WITH GOOD RESULTS Code(s): G47.33 - Obstructive sleep apnea (adult) (pediatric); Z99.89 - Dependence on other enabling machines and devices Category: Medical Plan: Continue CPAP. (4) Morbid obesity due to excess calories: Comment: This gentleman is a case of super morbid obesity. Over the past many years he has not been able to lose any weight. He does not want to join any weight management program. He is also not able to do any significant exercise. Code(s): E66.01 - Morbid (severe) obesity due to excess calories Category: Medical Plan: It has been like this for a long time. Uncertain if it will change. However, if indeed he can lose weight his leg swelling will significantly improve. Coding Level of Care Code Est Pt Level 4 (67584) Diagnoses Chronic right heart failure I50.812 Essential hypertension I10 GAYATHRI on CPAP G47.33; Z99.89 Morbid obesity due to excess calories E66.01
[2024-02-20 13:30] VITALS: BP 134/76; PULSE 72; BMI 50.8
== END 2024-02-20 13:51 | disposition home or self-care (01) ==
PROVIDERS: PCP Internal Medicine; Visit Provider Internal Medicine
DX: I50.812 Chronic right heart failure (principal); I10 Essential (primary) hypertension; G47.33 Obstructive sleep apnea (adult) (pediatric); Z99.89 Dependence on other enabling machines and devices; E66.01 Morbid (severe) obesity due to excess calories
CPT/HCPCS: 93010; 99214

== ENCOUNTER → 2024-02-20 13:22 | Outpatient (BNVA) | payer MEDICARE, SELFPAY | PROVIDERS: PCP Internal Medicine; Visit Provider Internal Medicine | DX: I11.0 Hypertensive heart disease with heart failure (principal); I50.812 Chronic right heart failure; G47.33 Obstructive sleep apnea (adult) (pediatric); E66.01 Morbid (severe) obesity due to excess calories; Z68.43 Body mass index [BMI] 50.0-59.9, adult; Z99.89 Dependence on other enabling machines and devices | CPT/HCPCS: 93005; 99212 ==

== ENCOUNTER 2024-02-26 14:01 | Outpatient (REF) | payer MEDICARE, SELFPAY ==
[2024-02-26 18:16] LABS: Alanine Aminotransferase 35 U/L (0-40); Albumin Level 4.3 g/dL (3.5-5.0); Alkaline Phosphatase 61 U/L (39-117); Anion Gap 15 (12-20); Aspartate Amino Transferase 24 U/L (5-37); Bilirubin Total 0.7 mg/dL (0.0-1.0); Blood Urea Nitrogen 18 mg/dL (9-16); Carbon Dioxide 26 mmol/L (22-29); Chloride 102 mmol/L (96-108); Estimated Glomerular Filt Rate 57; Glucose Random 137 mg/dL (60-115); Potassium 3.9 mmol/L (3.3-5.1); Sodium 139 mmol/L (135-145); Total Protein 7.8 g/dL (6.5-8.0)
== END 2024-02-26 14:02 | disposition home or self-care (01) ==
LOC: HO.MANLDS 14:01
PROVIDERS: Visit Provider Physician Assistant
DX: N17.0 Acute kidney failure with tubular necrosis (principal)
CPT/HCPCS: 36415; 80053

== ENCOUNTER 2024-03-02 15:26 | Outpatient (AMB) | payer MEDICARE, SELFPAY ==
[2024-03-02 15:37] VITALS: BP 120/72; PULSE 82; O2SAT 98; BMI 49.8
--- NOTE | 2024-03-02 15:37 | MHC.OFFVIS ---
Vital Signs 03/02/24 15:37 Height 5 ft 9 in Weight 337 lb 4.916 oz BMI 49.8 BP 120/72 Blood Pressure Location Lt brachial Position Sitting Pulse 82 Pulse Source Pulse Oximeter Pulse Oximetry (%) 98 Oxygen Delivery Method Room Air Intake Visit Reasons: Obstructive sleep apnea Intake Note: pt is here for follow up of GAYATHRI, [place] [facility] [place] using is nasal mask medium over the bridge of nose. Vehicle Return Associate Required: No Allergies No Known Allergies [No Known Allergies*] Allergy (Verified 03/02/24 15:53) Medication List - Last Reconciled 03/02/24 by Ade Murrell MD bumetanide 2 mg PO DAILY famotidine 40 mg PO BID glipizide 5 mg PO DAILY lisinopril 20 mg PO BID meloxicam 15 mg PO DAILY metformin ER 500 mg PO BID metoprolol succinate ER 25 mg PO DAILY Do you need a note to return to daycare/school/sports/work: No HPI HPI Obstructive sleep apnea: Details: 63 YEARS OLD GENTLEMAN WHO IS MORBIDLY OBESE AND CASE OF OBSTRUCTIVE SLEEP APNEA IS HERE FOR FOLLOW-UP AFTER 3 MONTHS. HE USES CPAP EVERY NIGHT AND IN FACT WITHOUT THE CPAP WOULD NOT BE ABLE TO SLEEP. CURRENTLY HE IS USING THE NASAL MASK WHICH GOES OVER THE NASAL BRIDGE AND IS MORE COMFORTABLE THAN HIS PREVIOUS MASK. HE ENDS UP USING THE CPAP AT LEAST FOR 6 HOURS PER NIGHT. .DENIES ANY DAYTIME SLEEPINESS HE IS TRYING TO LOSE WEIGHT SLOWLY AND GRADUALLY, BUT STILL REMAINS GROSSLY OVERWEIGHT . [facility] Medical History Chronic right heart failure Anal pain Morbid obesity due to excess calories GAYATHRI on CPAP Essential hypertension SOB (shortness of breath) Leg edema Surgical History History of ankle surgery History of hydrocelectomy Family History Father No problems noted. Mother No problems noted. Social History Alcohol intake: former Patient Tobacco Use Status: Never used Tobacco Review of Systems Const Denies chills, Denies fatigue, Denies fever(s), Denies frequent falls, Denies weakness, Denies weight gain and Denies weight loss ENT Denies dizziness Card Denies chest pain, Denies leg edema, Denies lightheadedness, Denies palpitations, Denies dyspnea, Denies dyspnea on exertion, Denies orthopnea and Denies other (Loss of consciousness) Resp Denies cough, Denies dyspnea and Denies dyspnea on exertion GI Denies hematochezia and Denies change in bowel habits Musc Denies abnormal gait, Denies muscle weakness, Denies numbness, Denies radiating pain into limb and Denies tingling Neuro Denies abnormal gait, Denies dizziness, Denies frequent falls, Denies numbness, Denies tingling and Denies weakness Endo Denies fatigue and Denies palpitations Physical Exam Vital Signs: Last Vital Signs Pulse 82 03/02/24 15:37 BP 120/72 03/02/24 15:37 Pulse Ox 98 03/02/24 15:37 Oxygen Delivery Method Room Air 03/02/24 15:37 BMI result Body Mass Index 49.8 He is morbidly obese Const General: comfortable, no acute distress, alert and awake Orientation/consciousness: patient oriented x3 HEENT Head: Yes normal to inspection General nose exam: No nasal polyps present and No nasal discharge present Face and sinus: Yes sinuses nontender Mouth: oropharynx normal (Very narrow oropharynx, Mallampati class 4) Throat: Yes posterior oropharynx normal Eyes General: appearance normal, both eyes and all related structures Neck Neck: Yes normal visual inspection, Yes no lymphadenopathy, Yes trachea midline and Yes no JVD Thyroid: Thyroid normal Chest Chest palpation & inspection: normal inspection of the chest, normal palpation of entire chest wall and no tenderness Resp Effort & Inspection: normal respiratory effort and other (Breath sounds are decreased over the basilar areas) Auscultation: clear to auscultation bilaterally, no rales and no wheezes Cardio Palpation: PMI not normal (Not palpable) Rate: regular rate Rhythm: regular rhythm Heart sounds: no gallops and no murmurs GI Palpation (GI): Soft to palpation, nontender, No hepatosplenomegaly present, no masses and Other GI palpation findings present Auscultation: normal bowel sounds Back/Spine/Pelvis Thoracic/Lumbar Spine: thoracic and lumbar spine normal to inspection and thoraco-lumbar ROM limited Skin General skin exam: no rashes or lesions noted Neuro General: patient oriented x3 and no focal motor deficits Cranial nerves: Yes CN's II-XII intact bilaterally Extrem General: Yes normal to inspection, Yes no clubbing, cyanosis or edema and Yes no calf tenderness Psych Speech and movement: Normal speech and movement present Results Reviewed Results Reviewed: COMPLIANCE REPORT FOR THE LAST 30 NIGHTS REVIEWED. HE HAS USED 30/30 NIGHTS,. 100% OF THE NIGHTS AVERAGE USE IT PER NIGHT 6 HOURS 47 MINUTES , PRESSURE USED IS 14-15 CM. .NO SIGNIFICANT AIR LEAK AND RESIDUAL AHI 2.3 Assessment & Plan Assessment & Plan (1) Morbid obesity due to excess calories: Comment: This gentleman is a case of super morbid obesity. Over the past many years he has not been able to lose any weight. He does not want to join any weight management program. He is also not able to do any significant exercise. The trend is down words and he has lost a few lb every time he comes. Code(s): E66.01 - Morbid (severe) obesity due to excess calories Category: Medical Plan: Again discussed about management of his calories and also try to walk every day. (2) GAYATHRI on CPAP: Comment: He has history of obstructive sleep apnea for many years. Recently started on new CPAP machine . After a repeat sleep study He is very happy with the CPAP device and is using it regularly. He is using nasal mask which is comfortable COMPLIANCE IS GOOD . WITH GOOD RESULTS Code(s): G47.33 - Obstructive sleep apnea (adult) (pediatric); Z99.89 - Dependence on other enabling machines and devices Category: Medical Plan: Commended for good compliance and encouraged to keep on using CPAP every night . Coding Level of Care Code Est Pt Level 3 (42733) Diagnoses Morbid obesity due to excess calories E66.01 GAYATHRI on CPAP G47.33; Z99.89
== END 2024-03-02 15:54 | disposition home or self-care (01) ==
PROVIDERS: PCP Internal Medicine; Visit Provider Internal Medicine
DX: E66.01 Morbid (severe) obesity due to excess calories (principal); G47.33 Obstructive sleep apnea (adult) (pediatric); Z99.89 Dependence on other enabling machines and devices
CPT/HCPCS: 99213

== ENCOUNTER → 2024-03-02 15:26 | Outpatient (BNVA) | payer MEDICARE, SELFPAY | PROVIDERS: PCP Internal Medicine; Visit Provider Internal Medicine | DX: G47.33 Obstructive sleep apnea (adult) (pediatric) (principal); E66.01 Morbid (severe) obesity due to excess calories; Z99.89 Dependence on other enabling machines and devices; Z68.42 Body mass index [BMI] 45.0-49.9, adult | CPT/HCPCS: 99212 ==

== ENCOUNTER 2024-06-29 15:24 | Outpatient (AMB) | payer MEDICARE, SELFPAY ==
[2024-06-29 15:32] VITALS: BP 130/78; PULSE 65; O2SAT 97; BMI 49.5
--- NOTE | 2024-06-29 15:32 | MHC.OFFVIS ---
Vital Signs 06/29/24 15:32 Height 5 ft 9 in Weight 335 lb 1.642 oz BMI 49.5 BP 130/78 Blood Pressure Location Lt brachial Pulse 65 Pulse Source Pulse Oximeter Pulse Oximetry (%) 97 Oxygen Delivery Method Room Air Intake Visit Reasons: Obstructive sleep apnea Intake Note: pt is here for follow up and doing well. Animal Handler Required: No Allergies No Known Allergies [No Known Allergies*] Allergy (Verified 06/29/24 15:43) Medication List - Last Reconciled 06/29/24 by Ade Murrell MD bumetanide 2 mg PO DAILY famotidine 40 mg PO BID glipizide 5 mg PO DAILY lisinopril 20 mg PO BID meloxicam 15 mg PO DAILY metformin ER 500 mg PO BID metoprolol succinate ER 25 mg PO DAILY Do you need a note to return to daycare/school/sports/work: No HPI HPI Obstructive sleep apnea: Details: THIS 64 YEARS OLD GENTLEMAN WITH MORBID OBESITY AND OBSTRUCTIVE SLEEP APNEA IS COMING AFTER 4 MONTHS FOR FOLLOW-UP. HE USES CPAP VERY REGULARLY EVERY NIGHT AND SLEEPS WELL. CURRENTLY HE HAS NASAL MASK WHICH HE LIKES BETTER THAN THE FULLFACE. HE HAS NO ISSUES EXCEPT THAT THE STRAP IS LITTLE TIGHT. .DENIES ANY AIR LEAK ISSUE HE IS TRYING TO LOSE WEIGHT BUT HAS LOST ONLY ABOUT 2 LB IN THE LAST 3 MONTHS. FOR[facility]LY [facility], [facility]ER [facility] Medical History Chronic right heart failure Anal pain Morbid obesity due to excess calories GAYATHRI on CPAP Essential hypertension SOB (shortness of breath) Leg edema Surgical History History of ankle surgery History of hydrocelectomy Family History Father No problems noted. Mother No problems noted. Social History Alcohol intake: former Patient Tobacco Use Status: Never used Tobacco Review of Systems Const All systems reviewed & are unremarkable except as noted in HPI and below Reports no additional complaints and Denies headache(s) Eyes Reports no additional complaints ENT Denies vertigo, Denies dizziness, Denies headache(s), Denies nasal congestion and Denies nasal discharge Card Denies chest pain, Denies leg edema, Denies lightheadedness and Reports dyspnea on exertion (MILD ) Resp Denies cough and Reports dyspnea on exertion (MILD ) GI Denies change in bowel habits, Denies heartburn and Denies diarrhea Reports no additional complaints Musc Reports no additional complaints and Denies muscle weakness Skin/Breast Reports system reviewed and no additional complaints, except as documented Neuro Denies vertigo, Denies dizziness, Denies headache(s) and Denies focal weakness Psych Reports no additional complaints Endo Reports no additional complaints Rodolfo/Lymph Reports no additional complaints Aller/Immun Reports no additional complaints Physical Exam Vital Signs: Last Vital Signs Pulse 65 06/29/24 15:32 BP 130/78 06/29/24 15:32 Pulse Ox 97 06/29/24 15:32 Oxygen Delivery Method Room Air 06/29/24 15:32 BMI result Body Mass Index 49.5 He is morbidly obese Const General: comfortable, no acute distress, alert and awake Orientation/consciousness: patient oriented x3 HEENT Head: Yes normal to inspection General nose exam: No nasal polyps present and No nasal discharge present Face and sinus: Yes sinuses nontender Mouth: oropharynx normal (Very narrow oropharynx, Mallampati class 4) Throat: Yes posterior oropharynx normal Eyes General: appearance normal, both eyes and all related structures Neck Neck: Yes normal visual inspection, Yes no lymphadenopathy, Yes trachea midline and Yes no JVD Thyroid: Thyroid normal Chest Chest palpation & inspection: normal inspection of the chest, normal palpation of entire chest wall and no tenderness Resp Effort & Inspection: normal respiratory effort and other (Breath sounds are decreased over the basilar areas) Auscultation: clear to auscultation bilaterally, no rales and no wheezes Cardio Palpation: PMI not normal (Not palpable) Rate: regular rate Rhythm: regular rhythm Heart sounds: no gallops and no murmurs GI Palpation (GI): Soft to palpation, nontender, No hepatosplenomegaly present, no masses and Other GI palpation findings present Auscultation: normal bowel sounds Back/Spine/Pelvis Thoracic/Lumbar Spine: thoracic and lumbar spine normal to inspection and thoraco-lumbar ROM limited Skin General skin exam: no rashes or lesions noted Neuro General: patient oriented x3 and no focal motor deficits Cranial nerves: Yes CN's II-XII intact bilaterally Extrem General: Yes normal to inspection, Yes no clubbing, cyanosis or edema and Yes no calf tenderness Psych Speech and movement: Normal speech and movement present Results Reviewed Results Reviewed: COMPLIANCE REPORT FOR THE LAST 30 NIGHTS IS REVIEWED. HE HAS USED 30/30 NIGHTS., 100% AVERAGE USE IT PER NIGHT. 6 HOURS 50 MINUTES PRESSURE USED IS. 14-16 CM .NO AIR LEAK NOTED RESIDUAL AHI 0.9 Assessment & Plan Assessment & Plan (1) Morbid obesity due to excess calories: Comment: This gentleman is a case of super morbid obesity. Over the past many years he has not been able to lose any weight. He does not want to join any weight management program. He is also not able to do any significant exercise. The trend is down words and he has lost a few lb every time he comes. Code(s): E66.01 - Morbid (severe) obesity due to excess calories Category: Medical Plan: DISCUSSED ABOUT THE WEIGHT MANAGEMENT AND HE IS DOING HIMSELF. ENCOURAGED TO WATCH HIS DIET AND TRY. TO BE ACTIVE POSSIBLE (2) GAYATHRI on CPAP: Comment: He has history of obstructive sleep apnea for many years. Recently started on new CPAP machine . After a repeat sleep study He is very happy with the CPAP device and is using it regularly. He is using nasal mask which is comfortable COMPLIANCE IS GOOD . WITH GOOD RESULTS Code(s): G47.33 - Obstructive sleep apnea (adult) (pediatric); Z99.89 - Dependence on other enabling machines and devices Category: Medical Plan: COMMENDED FOR GOOD COMPLIANCE AND ADVISED TO CONTINUE USING THE CPAP REGULARLY EVERY NIGHT Coding Level of Care Code Est Pt Level 3 (15116) Diagnoses Morbid obesity due to excess calories E66.01 GAYATHRI on CPAP G47.33; Z99.89
--- OUTSIDE RECORDS SUMMARY | 2024-07-01 16:21 | XMS_ITS | Patient Health Record ---
Author Organization [facility] Address [address] [place] [id number] Care Team Providers Care Extrusion Operator Name Role Phone Umair Sukhwinder Primary Care Provider Minh Nguyen Unavailable [phone] ALLERGIES No Known Allergies REASON FOR REFERRAL No Information MEDICATIONS Medication SIG (Take, Route, Frequency, Duration) Notes Start Date End Date Status Famotidine 40 MG TAKE 1 TABLET BY CORNELIA TH TWICE A DAY NEEDED Oral Twice a day Active Bumetanide 2 MG TAKE 1 TABLET BY CORNELIA TH TWICE A DAY Oral for 90 Active Preparation H 0.25-88.44 % 1 Rectal Twic e a day--use once in AM and once QHS for 1 week, and then prn for rectal pain or bleeding for 30 days 02/18/2020 Active Turmeric 500 MG as directed Orally Active Metoprolol Tartrate 25 MG 1 tablet with food Orally ONCE a day Active Lisinopril 20 MG 1 tablet Orally TWIC E A DAY Active IMMUNIZATIONS Vaccine Route Administration Date Status Comme nts Influenza Unknown 05/24/2020 Administered SOCIAL HISTORY Sex Assigned At : Social History Observation Description Sex Assigned At Unknown Alcohol Screen Question Answer Notes Did you have a drink containing alcohol in the p ast year? No Points 0 Interpretation Negative PROBLEMS Problem Type ICD Code Onset Dates Problem Status W/U Status Risk SNOMED Code Notes Problem Gastroesophageal reflux disease, esophagitis presence not specified (K21.9) Active confirmed 449549387 Problem Rectal bleed (K62.5) Active confirmed 1 9296593 Problem Rectal pain (K62.89) Active confirmed 7 3459332 Problem Constipation, unspecified constipation type (K59.00) Active confirmed 62851342 PLAN OF TREATMENT Future Test Test Name Order Date COLONOSCOPY 11/12/2012 UPPER GI ENDOSCOPY 08/25/2019 COLONOSCOPY 08/25/2019 Insurance Providers Payer Name Payer Address Payer Phone Subscriber Number Group Number Insured Name Patient Relationship to Insured Coverage Start Date Coverage End Date [facility] [address] [place] [address] [id number] SCARLETT LOPEZ Self - patient is the insured MEDICAL (GENERAL) HISTORY Medical History History ICD Code Arthritis in his knees Denies OH,DM,CVA,Lung disease,renal dise ase Sleep apnea-uses a CPAP machine Neg screening colonoscopy in 01/2013 except diverticulosis and minimal internal hemorrhoids GERD-EGD 10/2019 Moderate-siz ed HH, small area of Edgar's without dysplasia; no esophagitis LE edema Neg. colonoscopy in 10/2019 except news department intern al hemorrhoids Surgical History Surgery Date(Month/Year) Ankle surgery RIGHT Hydrocele repair 2017
--- OUTSIDE RECORDS SUMMARY | 2024-07-01 16:21 | XMS_ITS ---
Author Organization [facility] [place] Address [address] [place] [address] Care Team Providers Care Election Assistant Name Role Phone Sukhwinder Block MD Primary Care Provider Tierra Quevedo Unavailable [phone] Allergies No Known Allergies REASON FOR VISIT At Risk Footcare, Painful Nail(s) aggrevated by shoes and causing difficulty standing/walking. Medications Medication SIG (Take, Route, Frequency, Duration) Notes Start Date End Date Status Terbinafine HCl 250 MG 1 tablet Orally O nce a day for 90 days 02/01/2023 Not-Taking Tamsulosin HCl 0.4 MG 1 capsule Orally O nce a day Not-Taking Ciclopirox Olamine 0.77 % 1 application to affected area Externally to feet Twice a day for 30 days Not-Taking Bumetanide 2 MG 1 tablet Orally Once a day for 30 day(s) Active Extra Depth Orthopedic Shoes (1 Pair) with Customized Heat Molded Multidensity Innersoles (3 Pair) as directed Dx: NIDDM (E11.9), Hammertoe Foot Deformity (M20.41,M20.42), Preulcerative Skin Lesion(s) (L85.1) 04/25/2022 Active Lisinopril 20 MG 1 tablet Orally Once a day for 30 day(s) Active metFORMIN HCl 500 MG 1 tablet with a emily l Orally Once a day for 30 day(s) Not-Taking Metoprolol Succinate 25 MG 1 capsule Orally Once a day for 30 day(s) Active Meloxicam 15 MG 1 tablet Orally Once a day for 30 day(s) Active Famotidine 40 MG 1 tablet at bedtime Orally Once a day for 30 day(s) Active oxyBUTYnin Not-Takin g glipiZIDE 10 MG 1 tablet 30 minutes before breakfast Orally Once a day Active Social History Tobacco Use: Social History Observation Description Date Details (start date - stop date) Never Smoker NA - NA Tobacco Use/Smoking Question Answer Notes Are you a: nonsmoker Additional Findings: Tobacco Non-User Current no n-smoker Tobacco use other than smoking: Question Answer Notes Are you an other tobacco user? No Vital Signs Height 5ft8in in 06/16/2024 Weight 335 lbs 06/16/2024 BMI 50.93 kg/m2 06/16/2024 Blood pressure systolic 125 mm Hg 06/16/20 24 Blood pressure diastolic 70 mm Hg 024 Encounters Encounter Location Date Provider Diagnosis [facility] [address] [address] 06/16/2024 Tierra Rodriguez Tinea unguium B35.1 and Type 2 diabetes mellitus with polyneuropathy E11.42 Assessments Encounter Date Diagnosis (ICD Code) Assessment Notes Treatment Notes Treatment Clinical Notes Section Notes 06/16/2024 Tinea unguium (ICD-10 - B35.1) 06/16/2024 Type 2 diabetes mellitus with polyneuropathy (ICD-10 - E11.42) Plan Of Treatment Next Appt Details Follow Up: 2 Months, Reason: Provider Name:Tierra martinez, 08/26/2024 03:15:00 PM, [address] [place] [address], [phone], Procedure Notes * Category Sub-Category Detail Notes Debride Nail 6-10 Nail debridement Performance o f this nail treatment by a nonprofessional would put this patients foot and overall health at risk. Therefore, debridement to affected nail(s), as described in exam, was performed extensively to reduce/remove overall nail length, girth, thickness, subungual debris, and necrotic tissue, by manual and/or electrical means through the use of a nail nipper and/or dremel-type plate grinder, to a more viable healthy nail plate or bed tissue 6-10 nails in total. Silver nitrate was used for any petechial bleeding as necessary. Definitive antifungal treatment options, both pharmaceutical and surgical, have been reviewed and discussed with the patient. The patient solely prefers the use of intermittent/as needed professional debridement services for their nail condition and understands the need for additional periodic treatments to maintain effectiveness in symptomatic relief - 27431 Keratoma Treatment Parring or Cutting o f Benign Hyperkeratotic Lesion(s) (-56) 2-4 Lesions - The Benign hyperkeratotic lesions, ( 4) in total, locations as stated and described in exam, were pared, and/or cut utilizing a sterile 15 blade, tissue nippers, and/or power [employer] instrumentation - 58399 Progress Notes * Dayami GUYOB: 9 (64 yo M)Acc No.[id number]:06/16/2024 Progress Note Patient:?George GUY Provider:?Tierra Rodriguez DPM :1960???Age:64 Y???Sex:Male Canelo e:06/16/2024 Address:[address] [place], [place] [id number] Pcp:Sukhwinder Block MD Subjective: * Chief Complaints: * ???At Risk FootcarePainful N ail(s) aggrevated by shoes and causing difficulty standing/walking. * HPI: ???At Risk footcare:?Pt States Last PCP Visit:?Date?03/23/2024 * ROS:?General/Constitutional:?Nausea?denies.?Vomiting?denies.?Hunger Thirst?denies.?Loss appetite?denies.?Chills?denies.?Fatigue?denies.?Fever?denies.?Night Sweats?denies.?Unexplained weight loss?denies.?Unexplained weight gain?denies.?HEENTM:?Dentures?denies.?Dizziness?denies.?Glasses/contacts?admits.?Retinopathy?den ies.?Blurred/double vision?denies.?TMJ?denies.?Discharge/drainage?denies.?Implants?denies.?Sore throat?denies.?Dental implants?denies.?Hard of hearing ?admits.?Difficulty chewing/swallowing/speaking?denies.?Nose bleeds?denies.?Sore mouth?denies.?Respiratory:?On O xygen?denies.?Pneumonia/pleurisy?denies.?Bronchitis?denies.?Emphysema?denies.?Co ughing?denies.?Cough blood?denies.?Shortness of breath?denies.?Wheezing?admits.?Cardiovascular:?Pacemaker?denies.?MVP?denies.?WPW?denies.?CHF?denies.?Heart attack?denies.?Septal defect?denies.?Rapid beat?denies.?Chest pain ?denies.?Atrial Fib.?denies.?Murmur/Palpitations?denies.?Gastrointestinal:?Hemorrhoids?admits.?Stomach/Abdominal pain?denies.?Dark blood stool?denies.?Irritable bowel ?denies.?Constipation?admits.?Diarrhea?denies.?Hematology:?Swelling?admits.?Clots?denies.?Varicose Veins?denies.?Bruising?denies.?Bleeding problem?denies.?Genitourinary:?Blood urine?denies.?Frequent/Painfu/urination/bladder control?denies.?Kidney stones?denies.?Infection (UTI)?denies.?Nephropathy?denies.?sex trans dis (STD)?denies.?Prostate?denies.?Musculoskeletal:?Hammertoes?admits.?Bunions?denies.?Back Pain?admits.?Muscle Cramps/ Resting?admits.?Muscle cramps / walking?denies.?Generalized aches and pains?admits.?Weakness?denies.?Integ.:?Trotter?denies.?Scars?denies.?Corns/calluses?admits.?Ingrown nails?denies.?Painful nails?denies.?Open Sores?denies.?Rashes?denies.?Neurologic:?Difficulty sleeping?denies.?Brain disorder?denies.?Numbness?denies.?Balance t rouble?denies.?Confusion?denies.?Fainting/blackouts?denies.?Tingling?denies.?Tylor mors?denies.? * Medical History:? * Surgical History:?ankle surg tessie 03/1979 * Hospitalization/Major Diagno stic Procedure:?Denies Past Hospitalization * Family History:?Mother: dece ased, Cancer, foot problems, diagnosed with Other malignant neoplasm of unspecified site, Other specified conditions influencing health status.?Father: .?Siblings: , Brother- Cancer, diagnosed with Other malignant neoplasm of unspecified site, Unspecified essential hypertension.? * Social History:?Tobacco Use:?Tobacco Use/Smoking?Are you a:?nonsmoker ?Additional Findings: Tobacco Non-User?Current non-smoker ?Tobacco use other than smoking?Are you an other tobacco user??No * Medications:?TakingglipiZIDE 10 MG Tablet 1 tablet 30 minutes before breakfast Orally Once a day Meloxicam 15 MG Tablet 1 tablet Orally Once a day Metoprolol Succinate 25 MG Capsule ER 24 Hour Sprinkle 1 capsule Orally Once a day Lisinopril 20 MG Tablet 1 tablet Orally Once a day Famotidine 40 MG Tablet 1 tablet at bedtime Orally Once a day Extra Depth Orthopedic Shoes (1 Pair) with Customized Heat Molded Multidensity Innersoles (3 Pair) as directed Dx: NIDDM (E11.9), Hammertoe Foot Deformity (M20.41,M20.42), Preulcerative Skin Lesion(s) (L85.1) Bumetanide 2 MG Tablet 1 tablet Orally Once a day Taking glipiZIDE 10 MG Tablet 1 tablet 30 minutes before breakfast Orally Once a day Taking Meloxicam 15 MG Tablet 1 tablet Orally Once a day Taking Metoprolol Succinate 25 MG Capsule ER 24 Hour Sprinkle 1 capsule Orally Once a day Taking Lisinopril 20 MG Tablet 1 tablet Orally Once a day Taking Famotidine 40 MG Tablet 1 tablet at bedtime Orally Once a day Taking Extra Depth Orthopedic Shoes (1 Pair) with Customized Heat Molded Multidensity Innersoles (3 Pair) as directed Dx: NIDDM (E11.9), Hammertoe Foot Deformity (M20.41,M20.42), Preulcerative Skin Lesion(s) (L85.1) Taking Bumetanide 2 MG Tablet 1 tablet Orally Once a day Not-Taking/PRNoxyBUTYnin metFORMIN HCl 500 MG Tablet 1 tablet with a meal Orally Once a day Ciclopirox Olamine 0.77 % Cream 1 application to affected area Externally to feet Twice a day Tamsulosin HCl 0.4 MG Capsule 1 capsule Orally Once a day Terbinafine HCl 250 MG Tablet 1 tablet Orally Once a day Medication List reviewed and reconciled with the patientNot-Taking/PRN oxyBUTYnin Not-Taking/PRN metFORMIN HCl 500 MG Tablet 1 tablet with a meal Orally Once a day Not-Taking/PRN Ciclopirox Olamine 0.77 % Cream 1 application to affected area Externally to feet Twice a day Not-Taking/PRN Tamsulosin HCl 0.4 MG Capsule 1 capsule Orally Once a day Not-Taking/PRN Terbinafine HCl 250 MG Tablet 1 tablet Orally Once a day Medication List reviewed and reconciled with the patient * Allergies:?N.K.D.A.yes[Aller gies Verified] Objective: * Vitals:?Ht: 5ft8in, Wt:335, BMI:50.93, Shoe size: 10.5, BP:125/70mm Hg, BS: 127, Ht-cm: 172.72 cm, Wt-k.95 kg. * ???Past Orders: ???Lab:HEMOGLOBIN A1C (GLYCO HEMOGLOBIN) (Order Date - 06/21/2023) (Collection Date & Time - 06/21/2023 02:31 PM) ? Value Reference Range ?HEMOGLOBIN A1C % (HH) 6.9 * Examination: ???Ophthalmology Referral: ?DIABETES EYE EXAM?Nails: ?NAILS are:?Elongated, overgrown, dystrophic, lytic, greater than 3mm thick, discolored and friable with crumbly malodorous subungual debris, with pain on palpation 1-5 B/L , proximal clearing of nail 50? percent.?Dermatologic: ?SKIN FINDINGS:?Skin exam reveals Keratotic lesion(s) located at TA T5 , T4, T9.?Neurological: ?SENSORY:?Neurological exam demonstrates , reduced light touch sensation , reduced sharp/dull pin prick discrimination , reduced vibration sensation , reduced proprioception sensation , in a stocking fashion , plantar aspects , 5.07 monofilament test performed at plantar aspects of 5 varied sites per foot shows sensation , absent , at Forefoot , B/L.?Vascular: ?DP PULSES(B):?2/4, B/L.?PT PULSES(B):?0/4, B/L.?CAPILLARY FILL TIME:?3 secs. per digit, B/L.?TROPHIC CONDITION-TEXTURE/ELASTICITY/TURGOR/HAIR GROWTH(B):?sparce hair growth.?TEMPERTURE GRADIENT(C):?decreased, cool to cool, proximal to distal, B/L.?PIGMENTATION:?pale, B/L.?EDEMA(C):?2/4 , B/L.? Assessment: * Assessment: 1.?Tinea unguium - B35.1???2 .?Type 2 diabetes mellitus with polyneuropathy - E11.42 (Primary)??? Plan: * Treatment: * Procedures:?Debride Nail 6-10:?Nail debridement?Performance of this nail treatment by a nonprofessional would put this patients foot and overall health at risk. Therefore, debridement to affected nail(s), as described in exam, was performed extensively to reduce/remove overall nail length, girth, thickness, subungual debris, and necrotic tissue, by manual and/or electrical means through the use of a nail nipper and/or dremel-type plate grinder, to a more viable healthy nail plate or bed tissue 6-10 nails in total. Silver nitrate was used for any petechial bleeding as necessary. Definitive antifungal treatment options, both pharmaceutical and surgical, have been reviewed and discussed with the patient. The patient solely prefers the use of intermittent/as needed professional debridement services for their nail condition and understands the need for additional periodic treatments to maintain effectiveness in symptomatic relief - 73067.?Keratoma Treatment:?Parring or Cutting of Benign Hyperkeratotic Lesion(s)?(-56) 2-4 Lesions - The Benign hyperkeratotic lesions, ( 4) in total, locations as stated and described in exam, were pared, and/or cut utilizing a sterile 15 blade, tissue nippers, and/or power dremel instrumentation - 51020.? * Procedure Codes:?89028 DEBRI DE NAIL, 6 OR MORE, Modifiers: XS 28894 TRIM SKIN LESIONS, 2 TO 4, Modifiers: XS * Follow Up:?2 Months * Images: * Sign off status: Completed true * Provider:?Tierra Rodriguez DPM Date:? Generated for Gisell morales/Frances/Bryce on:?07/01/2024 04:21 PM EST History and Physical Notes * HPI (History of Present Illness) Category Sub-Category Detail Notes Category Not es At Risk footcare Pt States Last PCP Visit: Date: Examination Category Sub-Category Detail Notes Category Not es Neurological SENSORY: Neurological exa m demonstrates , reduced light touch sensation , reduced sharp/dull pin prick discrimination , reduced vibration sensation , reduced proprioception sensation , in a stocking fashion , plantar aspects , 5.07 monofilament test performed at plantar aspects of 5 varied sites per foot shows sensation , absent , at Forefoot , B/L Dermatologic SKIN FINDINGS: Skin exam reveal s Keratotic lesion(s) located at TA T5 , T4, T9 Ophthalmology Referral DIABETES EYE EXAM Procedu re Performed:: Yes ?Date of Exam Performed: 02/20/2024 Findings of Diabetic Eye Exam:: no retin opathy Vascular DP PULSES(B): 2/4, B/L PT PULSES(B): 0/4, B/L CAPILLARY FILL TIME: 3 secs. per digit, B/L TEMPERTURE GRADIENT(C): decreased, cool to cool, proximal to distal, B/L TROPHIC CONDITION-TEXTURE/ELASTICITY/TURGOR/HAIR GROWTH(B): sparce hair growth EDEMA(C): 2/4 , B/L PIGMENTATION: pale, B/L Nails NAILS are: Elongated, overg rown, dystrophic, lytic, greater than 3mm thick, discolored and friable with crumbly malodorous subungual debris, with pain on palpation 1-5 B/L , proximal clearing of nail 50 percent
--- OUTSIDE RECORDS SUMMARY | 2024-07-01 16:22 | XMS_ITS ---
Author Organization [facility] red Marquez Address [address] [place] [address] Care Team Providers Care Plastics Fabricator Name Role Phone Sukhwinder Block MD Primary Care Provider Tierra Quevedo Unavailable [phone] Allergies No Known Allergies REASON FOR VISIT At Risk Footcare, Painful Nail(s) aggrevated by shoes and causing difficulty standing/walking. Medications Medication SIG (Take, Route, Frequency, Duration) Notes Start Date End Date Status Bumetanide 2 MG 1 tablet Orally Once a day for 30 day(s) Active Extra Depth Orthopedic Shoes (1 Pair) with Customized Heat Molded Multidensity Innersoles (3 Pair) as directed Dx: NIDDM (E11.9), Hammertoe Foot Deformity (M20.41,M20.42), Preulcerative Skin Lesion(s) (L85.1) 04/25/2022 Active Famotidine 40 MG 1 tablet at bedtime Orally Once a day for 30 day(s) Active Lisinopril 20 MG 1 tablet Orally Once a day for 30 day(s) Active metFORMIN HCl 500 MG 1 tablet with a emily l Orally Once a day for 30 day(s) Active Terbinafine HCl 250 MG 1 tablet Orally O nce a day for 90 days 02/01/2023 Not-Taking Tamsulosin HCl 0.4 MG 1 capsule Orally O nce a day Not-Taking Metoprolol Succinate 25 MG 1 capsule Orally Once a day for 30 day(s) Active Meloxicam 15 MG 1 tablet Orally Once a day for 30 day(s) Active oxyBUTYnin Active Ciclopirox Olamine 0.77 % 1 application to affected area Externally to feet Twice a day for 30 days Not-Taking Social History Tobacco Use: Social History Observation Description Date Details (start date - stop date) Never Smoker NA - NA Tobacco Use/Smoking Question Answer Notes Are you a: nonsmoker Additional Findings: Tobacco Non-User Current no n-smoker Tobacco use other than smoking: Question Answer Notes Are you an other tobacco user? No Vital Signs Height 5ft8in in 04/03/2024 Weight 350 lbs 04/03/2024 BMI 53.21 kg/m2 04/03/2024 Blood pressure systolic 130 mm Hg 04/03/20 24 Blood pressure diastolic 65 mm Hg 024 Encounters Encounter Location Date Provider Diagnosis [facility] [address] [address] 04/03/2024 Tierra Rodriguez Tinea unguium B35.1 and Type 2 diabetes mellitus with polyneuropathy E11.42 Assessments Encounter Date Diagnosis (ICD Code) Assessment Notes Treatment Notes Treatment Clinical Notes Section Notes 04/03/2024 Tinea unguium (ICD-10 - B35.1) 04/03/2024 Type 2 diabetes mellitus with polyneuropathy (ICD-10 - E11.42) Plan Of Treatment Next Appt Details Follow Up: 2 Months, Reason: Provider Name:Tierra Loreto martinez, 08/26/2024 03:15:00 PM, [address] [place] [address], [phone], Procedure Notes * Category Sub-Category Detail Notes Debride Nail 6-10 Nail debridement Nail debridem ent performed extensively to reduce/remove overall nail length, girth, thickness, subungual debris, and necrotic tissue, by manual and electrical means through the use of a nail nipper and/or dremel, to more viable healthy nail plate or bed tissue 1-5. Silver nitrate used for any petechial bleeding as necessary. Patient chooses, no pharmaceutical tx (11568) Keratoma Treatment Parring or Cutting o f Benign Hyperkeratotic Lesion(s) 28899 ( More than 4 Lesions ) - The Benign hyperkeratotic lesions, as described above were pared, and/or cut utilizing a sterile 15 blade, tissue nippers, and/or dremel Progress Notes * Norman GUY: (63 yo M)Acc No.[id number]:04/03/2024 Progress Note Patient:?George Guy Provider:?Tierra Rodriguez DPM :1960???Age:63 Y???Sex:Male Canelo e:04/03/2024 Address:[address] [place], [place] [id number] Pcp:Sukhwinder Block MD Subjective: * Chief Complaints: * ???At Risk FootcarePainful N ail(s) aggrevated by shoes and causing difficulty standing/walking. * HPI: ???At Risk footcare:?Pt States Last PCP Visit:?Date?03/23/2024 * ROS:?General/Constitutional:?Nausea?denies, denies, denies.?Vomiting?denies, denies, denies.?Hunger Thirst?denies, denies, denies.?Loss appetite?denies, denies, denies.?Chills?denies, denies, denies.?Fatigue?denies, denies, denies.?Fever?denies, denies, denies.?Night Sweats?denies, denies, denies.?Unexplained weight loss?denies, denies, denies.?Unexplained weight gain?denies, denies, denies.?HEENTM:?Dentures?denies, denies, denies.?Dizziness?denies, denies, denies.?Glasses/contacts?admits, admits, admits.?Retinopathy?denies, denies, denies.?Blurred/double vision?denies, denies, denies.?TMJ?denies, denies, denies.?Discharge/drainage?denies, denies, denies.?Implants?denies, denies, denies.?Sore throat?denies, denies, denies.?Dental implants?denies, denies, denies.?Hard of hearing ?admits, admits, admits.?Difficulty chewing/swallowing/speaking denies, denies, denies.?Nose bleeds?denies, denies, denies.?Sore mouth?denies, denies, denies.?Respiratory:?On Oxygen?denies, denies, denies.?Pneumonia/pleurisy?denies, denies, denies.?Bronchitis?denies, denies, denies.?Emphysema?denies, denies, denies.?Coughing?denies, denies, denies.?Cough blood?denies, denies, denies.?Shortness of breath?denies, denies, denies.?Wheezing?admits, admits, admits.?Cardiovascular:?Pacemaker?denies, denies, denies.?MVP?denies, denies, denies.?WPW?denies, denies, denies.?CHF?denies, denies, denies.?Heart attack?denies, denies, denies.?Septal defect?denies, denies, denies.?Rapid beat denies, denies, denies.?Chest pain ?denies, denies, denies.?Atrial Fib.?denies, denies, denies.?Murmur/Palpitations?denies, denies, denies.?Gastrointestinal:?Hemorrhoids?admits, admits, admits.?Stomach/Abdominal pain?denies, denies, denies.?Dark blood stool?denies, denies, denies.?Irritable bowel ?denies, denies, denies.?Constipation?admits, admits, admits.?Diarrhea?denies, denies, denies.?Hematology:?Swelling?admits, admits, admits.?Clots?denies, denies, denies.?Varicose Veins?denies, denies, denies.?Bruising?denies, denies, denies.?Bleeding problem?denies, denies, denies.?Genitourinary:?Blood urine?denies, denies, denies.?Frequent/Painfu/urination/bladder control?denies, denies, denies.?Kidney stones?denies, denies, denies.?Infection (UTI)?denies, denies, denies.?Nephropathy?denies, denies, denies. sex trans dis (STD)?denies, denies, denies.?Prostate?denies, denies, denies.?Musculoskeletal:?Hammertoes?admits, admits, admits.?Bunions?denies, denies, denies.?Back Pain?admits, admits, admits.?Muscle Cramps/ Resting?admits, admits, admits.?Muscle cramps / walking?denies, denies, denies.?Generalized aches and pains?admits, admits, admits.?Weakness?denies, denies, denies.?Integ.:?Trotter?denies, denies, denies.?Scars?denies, denies, denies.?Corns/calluses?admits, admits, admits.?Ingrown nails?denies, denies, denies.?Painful nails?denies, denies, denies.?Open Sores?denies, denies, denies.?Rashes?denies, denies, denies.?Neurologic:?Difficulty sleeping?denies, denies, denies.?Brain disorder?denies, denies, denies.?Numbness?denies, admits, denies.?Balance trouble?denies, denies, denies.?Confusion?denies, denies, denies.?Fainting/blackouts?denies, denies, denies.?Tingling?denies, admits, denies.?Tremors?denies, denies, denies.? * Medical History:? * Surgical History:?ankle surg tessie 03/1979 * Hospitalization/Major Diagno stic Procedure:?Denies Past Hospitalization * Family History:?Mother: dece ased, Cancer, foot problems, diagnosed with Other malignant neoplasm of unspecified site, Other specified conditions influencing health status.?Father: .?Siblings: , Brother- Cancer, diagnosed with Unspecified essential hypertension, Other malignant neoplasm of unspecified site.? * Social History:?Tobacco Use:?Tobacco Use/Smoking?Are you a:?nonsmoker ?Additional Findings: Tobacco Non-User?Current non-smoker ?Tobacco use other than smoking?Are you an other tobacco user??No ???Miscellaneous:?Caffeine: yes, frequency:, 1-2 cups per day. ?Children: yes. ?no Exercise. ?Marital status: . ?Occupation: Disabled. * Medications:?TakingoxyBUTYni n Meloxicam 15 MG Tablet 1 tablet Orally Once a dayMetoprolol Succinate 25 MG Capsule ER 24 Hour Sprinkle 1 capsule Orally Once a daymetFORMIN HCl 500 MG Tablet 1 tablet with a meal Orally Once a dayLisinopril 20 MG Tablet 1 tablet Orally Once a dayFamotidine 40 MG Tablet 1 tablet at bedtime Orally Once a dayExtra Depth Orthopedic Shoes (1 Pair) with Customized Heat Molded Multidensity Innersoles (3 Pair) as directed Dx: NIDDM (E11.9), Hammertoe Foot Deformity (M20.41,M20.42), Preulcerative Skin Lesion(s) (L85.1)Bumetanide 2 MG Tablet 1 tablet Orally Once a dayTaking oxyBUTYnin Taking Meloxicam 15 MG Tablet 1 tablet Orally Once a dayTaking Metoprolol Succinate 25 MG Capsule ER 24 Hour Sprinkle 1 capsule Orally Once a dayTaking metFORMIN HCl 500 MG Tablet 1 tablet with a meal Orally Once a dayTaking Lisinopril 20 MG Tablet 1 tablet Orally Once a dayTaking Famotidine 40 MG Tablet 1 tablet at bedtime Orally Once a dayTaking Extra Depth Orthopedic Shoes (1 Pair) with Customized Heat Molded Multidensity Innersoles (3 Pair) as directed Dx: NIDDM (E11.9), Hammertoe Foot Deformity (M20.41,M20.42), Preulcerative Skin Lesion(s) (L85.1)Taking Bumetanide 2 MG Tablet 1 tablet Orally Once a dayNot-Taking/PRNCiclopirox Olamine 0.77 % Cream 1 application to affected area Externally to feet Twice a dayTamsulosin HCl 0.4 MG Capsule 1 capsule Orally Once a dayTerbinafine HCl 250 MG Tablet 1 tablet Orally Once a dayMedication List reviewed and reconciled with the patientNot-Taking/PRN Ciclopirox Olamine 0.77 % Cream 1 application to affected area Externally to feet Twice a dayNot- Taking/PRN Tamsulosin HCl 0.4 MG Capsule 1 capsule Orally Once a dayNot-Taking/PRN Terbinafine HCl 250 MG Tablet 1 tablet Orally Once a dayMedication List reviewed and reconciled with the patient * Allergies:?N.K.D.A.yes[Aller gies Verified] Objective: * Vitals:?Ht: 5ft8in, Wt:350, BMI:53.21, Shoe size: 10.5, BP:130/65 mm Hg, BS: 100, Ht-cm: 172.72 cm, Wt-k.76 kg. * ???Past Orders: ???Lab:HEMOGLOBIN A1C (GLYCO HEMOGLOBIN) (Order Date - 06/21/2023) (Collection Date - 06/21/2023) ? Value Reference Range ?HEMOGLOBIN A1C % (HH) 6.9 * Examination: ???Ophthalmology Referral: ?DIABETES EYE EXAM?Nails: ?NAILS are:?Elongated, overgrown, dystrophic, lytic, greater than 3mm thick, discolored and friable with crumbly malodorous subungual debris, with pain on palpation 1-5 B/L , proximal clearing of nail 50? percent.?Dermatologic: ?SKIN FINDINGS:?Skin exam reveals Keratotic lesion(s) located at TA T5 Sub 1, 5, mth b/l, Heel(s) B/L , Skin shows sign(s) of, dryness, scaling, in a stocking fashion, no fissure(s) present, B/L.?Neurological: ?SENSORY:?Neurological exam demonstrates , reduced light touch [...] B/L.? Assessment: * Assessment: 1.?Tinea unguium - B35.1?2.? Type 2 diabetes mellitus with polyneuropathy - E11.42 (Primary)? Plan: * Treatment: * Procedures:?Debride Nail 6-10:?Nail debridement?Nail debridement performed extensively to reduce/remove overall nail length, girth, thickness, subungual debris, and necrotic tissue, by manual and electrical means through the use of a nail nipper and/or dremel, to more viable healthy nail plate or bed tissue 1-5. Silver nitrate used for any petechial bleeding as necessary. Patient chooses, no pharmaceutical tx (45677).?Keratoma Treatment:?Parring or Cutting of Benign Hyperkeratotic Lesion(s)?52756 ( More than 4 Lesions ) - The Benign hyperkeratotic lesions, as described above were pared, and/or cut utilizing a sterile 15 blade, tissue nippers, and/or dremel.? * Procedure Codes:?19113 DEBRI DE NAIL, 6 OR MORE, Modifiers: XS 97777 TRIM SKIN LESIONS, OVER 4, Modifiers: XS * Follow Up:?2 Months * Images: * Sign off status: Completed true * Provider:?Tierra Rodriguez DPM Date:? Generated for Quani ng/Facindyg/eTransmitting on:?07/01/2024 04:21 PM EST History and Physical Notes * HPI (History of Present Illness) Category Sub-Category Detail Notes Category Not es At Risk footcare Pt States Last PCP Visit: Date: 4 Examination Category Sub-Category Detail Notes Category Not [...] s Keratotic lesion(s) located at TA T5 Sub 1, 5, mth b/l, Heel(s) B/L , Skin shows sign(s) of, dryness, scaling, in a stocking fashion, no fissure(s) present, B/L Ophthalmology Referral DIABETES EYE EXAM Diabeti c Retinopathy Screening:: Yes Findings of Diabetic Eye Exam:: no retin [...]
--- OUTSIDE RECORDS SUMMARY | 2024-07-01 16:22 | XMS_ITS ---
Author Organization [facility] red [place] Address [address] [place] [address] Care Team Providers Care Auto Job Estimator Name Role Phone Sukhwinder Block MD Primary Care Provider Tierra Quevedo Unavailable [phone] Allergies No Known Allergies REASON FOR VISIT At Risk Footcare, Painful Nail(s) aggrevated by shoes and causing difficulty standing/walking. Medications Medication SIG (Take, Route, Frequency, Duration) Notes Start Date End Date Status Tamsulosin HCl 0.4 MG 1 capsule Orally O nce a day Not-Taking Meloxicam 15 MG 1 tablet Orally Once a day for 30 day(s) Active Metoprolol Succinate 25 MG 1 capsule Orally Once a day for 30 day(s) Active Terbinafine HCl 250 MG 1 tablet Orally O nce a day for 90 days 02/01/2023 Not-Taking oxyBUTYnin Active Bumetanide 2 MG 1 tablet Orally Once a day for 30 day(s) Active Ciclopirox Olamine 0.77 % 1 application to affected area Externally to feet Twice a day for 30 days Not-Taking Famotidine 40 MG 1 tablet at bedtime [...] Once a day for 30 day(s) Active Social History Tobacco Use: Social History Observation Description Date Details (start date - stop date) Never Smoker NA - NA Tobacco Use/Smoking Question Answer Notes Are you a: nonsmoker Additional Findings: Tobacco Non-User Current no n-smoker Alcohol Screen Question Answer Notes Did you have a drink containing alcohol in the p ast year? No Points 0 Interpretation Negative Tobacco use other than smoking: Question Answer Notes Are you an other tobacco user? No Vital Signs Height 5ft8in in 01/14/2024 Weight 350 lbs 01/14/2024 BMI 53.21 kg/m2 01/14/2024 Blood pressure systolic 130 mm Hg 01/14/20 24 Blood pressure diastolic 70 mm Hg 024 Encounters Encounter Location Date Provider Diagnosis [facility] [address] [address] 01/14/2024 Tierra Rodriguez Tinea unguium B35.1 and Type 2 diabetes mellitus with polyneuropathy E11.42 Assessments Encounter Date Diagnosis (ICD Code) Assessment Notes Treatment Notes Treatment Clinical Notes Section Notes 01/14/2024 Tinea unguium (ICD-10 - B35.1) 01/14/2024 Type 2 diabetes mellitus with polyneuropathy (ICD-10 - E11.42) Plan Of Treatment Next Appt Details Follow Up: 2 Months, Reason: Provider Name:Tierra martinez, 08/26/2024 03:15:00 PM, [address] [place] [address], [phone], Procedure Notes * Category Sub-Category Detail Notes [...] as necessary. Patient chooses, no pharmaceutical tx (27518) Keratoma Treatment Parring or Cutting o f Benign Hyperkeratotic Lesion(s) 09453 ( More than 4 Lesions ) - The Benign hyperkeratotic lesions, as described above were pared, and/or cut utilizing a sterile 15 blade, tissue nippers, and/or dremel Progress Notes * Dayami GUYOB: (63 yo M)Acc No.[id number]:01/14/2024 Progress Note Patient:George Richards Provider:?Tierra Rodriguez DPM :1960???Age:63 Y???Sex:Male Canelo e:01/14/2024 Address:[address] [place], [place] [id number] Pcp:Sukhwinder Block MD Subjective: * Chief Complaints: * ???At Risk FootcarePainful N ail(s) aggrevated by shoes and causing difficulty standing/walking. * HPI: ???At Risk footcare:?Pt States Last PCP Visit:?Date?01/06/2024 * ROS:?General/Constitutional:?Nausea?denies, denies.?Vomiting?denies, denies.?Hunger Thirst?denies, denies.?Loss appetite?denies, denies.?Chills?denies, denies.?Fatigue?denies, denies.?Fever?denies, denies.?Night Sweats denies, denies.?Unexplained weight loss?denies, denies.?Unexplained weight gain?denies, denies.?HEENTM:?Dentures?denies, denies.?Dizziness?denies, denies.?Glasses/contacts?admits, admits.?Retinopathy?denies, denies.?Blurred/double vision?denies, denies.?TMJ?denies, denies.?Discharge/drainage?denies, denies.?Implants?denies, denies.?Sore throat?denies, denies.?Dental implants?denies, denies.?Hard of hearing ?admits, admits.?Difficulty chewing/swallowing/speaking?denies, denies.?Nose bleeds?denies, denies.?Sore mouth?denies, denies.?Respiratory:?On Oxygen?denies, denies.?Pneumonia/pleurisy?denies, denies.?Bronchitis?denies, denies.?Emphysema?denies, denies.?Coughing?denies, denies.?Cough blood?denies, denies.?Shortness of breath?denies, denies.?Wheezing?admits, admits.?Cardiovascular:?Pacemaker?denies, denies.?MVP?denies, denies.?WPW?denies, denies.?CHF?denies, denies.?Heart attack?denies, denies.?Septal defect?denies, denies.?Rapid beat?denies, denies.?Chest pain ?denies, denies.?Atrial Fib.?denies, denies.?Murmur/Palpitations?denies, denies.?Gastrointestinal:?Hemorrhoids?admits, admits.?Stomach/Abdominal pain?denies, denies.?Dark blood stool?denies, denies.?Irritable bowel ?denies, denies.?Constipation?admits, admits.?Diarrhea?denies, denies.?Hematology:?Swelling?admits, admits.?Clots?denies, denies.?Varicose Veins?denies, denies.?Bruising?denies, denies.?Bleeding problem?denies, denies.?Genitourinary:?Blood urine?denies, denies.?Frequent/Painfu/urination/bladder control?denies, denies.?Kidney stones?denies, denies.?Infection (UTI)?denies, denies.?Nephropathy?denies, denies.?sex trans dis (STD)?denies, denies.?Prostate?denies, denies.?Musculoskeletal:?Hammertoes?admits, admits.?Bunions?denies, denies.?Back Pain?admits, admits.?Muscle Cramps/ Resting?admits, admits.?Muscle cramps / walking?denies, denies.?Generalized aches and pains?admits, admits.?Weakness?denies, denies.?Integ.:?Trotter?denies, denies.?Scars?denies, denies.?Corns/calluses?admits, admits.?Ingrown nails?denies, denies.?Painful nails?denies, denies.?Open Sores?denies, denies.?Rashes?denies, denies.?Neurologic:?Difficulty sleeping?denies, denies.?Brain disorder?denies, denies.?Numbness?admits, denies.?Balance trouble?denies, denies.?Confusion?denies, denies.?Fainting/blackouts?denies, denies.?Tingling?admits, denies.?Tremors?denies, denies.? * Medical History:? * Surgical History:?ankle surg tessie 03/1979 * Hospitalization/Major Diagno stic Procedure:?Denies Past Hospitalization * Family History:?Mother: dece ased, Cancer, foot problems, diagnosed with Other specified conditions influencing health status, Other malignant neoplasm of unspecified site.?Father: .?Siblings: , Brother- Cancer, diagnosed with Unspecified essential hypertension, Other malignant neoplasm of unspecified site.? * Social History:?Tobacco Use:?Tobacco Use/Smoking?Are you a:?nonsmoker ?Additional Findings: Tobacco Non-User?Current non-smoker ?Tobacco use other than smoking?Are you an other tobacco user??No ???Drugs/Alcohol:?Drugs?Have you used drugs other than those for medical reasons in the past 12 months??No ?Alcohol Screen?Did you have a drink containing alcohol in the past year??No ?Points?0 ?Interpretation?Negative ???Miscellaneous:?Caffeine: yes, frequency:, 1-2 cups per day. [...] Vitals:?Ht: 5ft8in, Wt:350, BMI:53.21, Shoe size: 10.5, BP:130/70 mm Hg, BS: not taken, Ht-cm: 172.72 cm, Wt-k.76 kg. * ???Past [...] absent , at Forefoot , B/L.?Vascular: ?DP PULSES:?2/4, B/L.?PT PULSES:?0/4, B/L.?CAPILLARY FILL TIME:?3 secs. per digit, B/L.?SKIN TEMPERTURE GRADIENT OF THE LOWER EXTERMITIES:?decreased, cool to cool, proximal to distal, B/L.?HAIR GROWTH/TEXTURE/ELASTICITY/TURGOR:?sparce hair growth.?PIGMENTATION:?pale, B/L.?EDEMA:?2/4 , B/L.? Assessment: * Assessment: 1.?Tinea unguium [...] as necessary. Patient chooses, no pharmaceutical tx (69051).?Keratoma Treatment:?Parring or Cutting of Benign Hyperkeratotic Lesion(s)?49128 ( More than 4 Lesions ) - The Benign hyperkeratotic lesions, as described above were pared, and/or cut utilizing a sterile 15 blade, tissue nippers, and/or dremel.? * Procedure Codes:?57229 DEBRI DE NAIL, 6 OR MORE, Modifiers: XS 33754 TRIM SKIN LESIONS, OVER 4, Modifiers: XS * Follow Up:?2 Months * Images: * Sign off status: Completed true * Provider:?Tierra Rodriguez, BESSY Date:? Generated for Gisell morales/Frances/eTransmitting on:?07/01/2024 04:21 PM EST History and Physical [...] DIABETES EYE EXAM Diabeti c Retinopathy Screening:: No Findings of Diabetic Eye Exam:: no retin [...]
--- OUTSIDE RECORDS SUMMARY | 2024-07-01 16:22 | XMS_ITS | Patient Health Record ---
Author Organization [facility] Address [address] [facility] [address] [place] [address] Care Team Providers Care Tool Honing Machine Set Up Operator Name Role Phone Umair JAMIL, Sukhwinder Primary Care Provider Tierra Quevedo Unavailable [phone] Allergies No Known Allergies Reason For Referral No Information Medications Medication SIG (Take, Route, Frequency, Duration) Notes Start Date End Date Status Lisinopril 20 MG 1 tablet Orally Once [...] before breakfast Orally Once a day Active Terbinafine HCl 250 MG 1 tablet [...] Once a day for 30 day(s) Active Immunizations Vaccine Route Administration Date Status Comme nts Influenza Unknown 04/23/2022 Administered Influenza Unknown 05/22/2023 Administered Social History Tobacco Use: Social History Observation [...] Are you an other tobacco user? No Problems Problem Type SNOMED Code ICD Code Onset Dates Problem Status W/U Status Risk Notes Problem Acquired hammer toe of right foot (252259827756 9105) Other hammer toe(s) (acquired), right foot (M20.41) Active confirmed Problem Acquired hammer toe of left foot (408115020242 9103) Other hammer toe(s) (acquired), left foot (M20.42) Active confirmed Problem 73158707 Type 2 diabetes mellitus with polyneuropathy (E11.42) Active confirmed Problem 72701611 Type 2 diabetes mellitus with vascular disease (E11.59) Active confirmed Problem 960572010 Type 2 diabetes mellitus without complication, without long-term current use of insulin (E11.9) Active confirmed Vital Signs Blood pressure diastolic 70 mm Hg 06/16/2024 Height 5ft8in in 06/16/2024 Blood pressure systolic 125 mm Hg 06/16/2024 Weight 335 lbs 06/16/2024 BMI 50.93 kg/m2 06/16/2024 Encounters Encounter [facility] Date [facility] [address] 08/28/2023 [place] Tinea unguium B35.1 ; Contusion of right foot, initial encounter S90.31XA ; Type 2 diabetes mellitus with polyneuropathy E11.42 ; Hammertoe of right foot M20.41 ; Hammertoe of left foot M20.42 and Xerosis of skin L85.[address] [address] 10/29/2023 [place] Tinea unguium B35.1 and Type 2 diabetes mellitus with polyneuropathy E11.[address] [address] 01/14/2024 [place] Tinea unguium B35.1 and Type 2 diabetes mellitus with polyneuropathy E11.[address] [address] 04/03/2024 [place] Tinea unguium B35.1 and Type 2 diabetes mellitus with polyneuropathy E11.[address] [address] 06/16/2024 [place] Tinea unguium B35.1 and Type 2 diabetes mellitus with polyneuropathy E11.42 Assessments Encounter Date Diagnosis (ICD Code) Assessment Notes Treatment Notes Treatment Clinical Notes Section Notes 08/28/2023 Tinea unguium (ICD-10 - B35.1) 08/28/2023 Contusion of right foot, initial encounter (ICD-10 - S90.31XA) 10/29/2023 Tinea unguium (ICD-10 - B35.1) 10/29/2023 Type 2 diabetes mellitus with polyneuropathy (ICD-10 - E11.42) 01/14/2024 Tinea unguium (ICD-10 - B35.1) 04/03/2024 Tinea unguium (ICD-10 - B35.1) 06/16/2024 Tinea unguium (ICD-10 - B35.1) 06/16/2024 Type 2 diabetes mellitus with polyneuropathy (ICD-10 - E11.42) 04/03/2024 Type 2 diabetes mellitus with polyneuropathy (ICD-10 - E11.42) 08/28/2023 Type 2 diabetes mellitus with polyneuropathy (ICD-10 - E11.42) 01/14/2024 Type 2 diabetes mellitus with polyneuropathy (ICD-10 - E11.42) 08/28/2023 Hammertoe of right foot (ICD-10 - M20.41) 08/28/2023 Hammertoe of left foot (ICD-10 - M20.42) 08/28/2023 Xerosis of skin (ICD-10 - L85.3) Plan Of Treatment Pending Test Test Name Order Date *Liver Function Test (LFT) 01/29/2023 *Liver Function Test (LFT) 04/09/2023 Next Appt Details Provider Name:Tierra Martinez Alphonso martinez, 08/26/2024 03:15:00 PM, [address] [place], [address], Insurance Providers Payer Name Payer Address Payer Phone Subscriber Number Group Number Insured Name Patient Relationship to Insured Coverage Start Date Coverage End Date Medicare [facility] [address] [place] [address] [id number] George Guy Self - patient is the insured [employer] [address] [place] [address] [id number] George Guy Self - patient is the insured Medical (General) History Medical History History ICD Code Arthritis Back,Hip,and Knee pain Broken bones Diabetic Diverticulosis Heart disease High blood pressure Psoriasis/eczema Reflux ( GERD) Warts Measles Chicken pox Surgical History Surgery Date(Month/Year) ankle surgery 03/1979
== END 2024-06-29 15:48 | disposition home or self-care (01) ==
PROVIDERS: PCP Internal Medicine; Visit Provider Internal Medicine
DX: E66.01 Morbid (severe) obesity due to excess calories (principal); G47.33 Obstructive sleep apnea (adult) (pediatric); Z99.89 Dependence on other enabling machines and devices
CPT/HCPCS: 99213

== ENCOUNTER → 2024-06-29 15:24 | Outpatient (BNVA) | payer MEDICARE, SELFPAY | PROVIDERS: PCP Internal Medicine; Visit Provider Internal Medicine | DX: G47.33 Obstructive sleep apnea (adult) (pediatric) (principal); E66.01 Morbid (severe) obesity due to excess calories; Z99.89 Dependence on other enabling machines and devices; Z68.42 Body mass index [BMI] 45.0-49.9, adult | CPT/HCPCS: 99212 ==

== ENCOUNTER 2024-07-13 11:21 | Outpatient (REF) | payer MEDICARE, SELFPAY ==
--- OUTSIDE RECORDS SUMMARY | 2024-07-13 11:24 | XMS_ITS | Patient Health Record ---
Author Organization [facility] Address [address] [facility] [place] [address] Care Team Providers Care Monument Setter Helper Name Role Phone Umair JAMIL, Sukhwinder Primary Care Provider Tierra Quevedo Unavailable [phone] Allergies No Known Allergies Reason For Referral [...] Problem Acquired hammer toe of right foot (834819212600 9105) Other hammer toe(s) (acquired), right foot (M20.41) Active confirmed Problem Acquired hammer toe of left foot (292009684279 9103) Other hammer toe(s) (acquired), left foot (M20.42) Active confirmed Problem 22895239 Type 2 diabetes mellitus with polyneuropathy (E11.42) Active confirmed Problem 01994041 Type 2 diabetes mellitus with vascular disease (E11.59) Active confirmed Problem 536544088 Type 2 diabetes mellitus without complication, without long-term current use of insulin (E11.9) Active confirmed Vital Signs Blood pressure diastolic 70 mm Hg 06/16/2024 Height 5ft8in in 06/16/2024 Blood pressure systolic 125 mm Hg 06/16/2024 Weight 335 lbs 06/16/2024 BMI 50.93 kg/m2 06/16/2024 Encounters Encounter Location Date [facility] [address] 08/28/2023 [place] Tinea unguium B35.1 ; Contusion of right foot, initial encounter S90.31XA ; Type 2 diabetes mellitus with polyneuropathy E11.42 ; Hammertoe of right foot M20.41 ; Hammertoe of left foot M20.42 and Xerosis of skin L85.[address] [address] 10/29/2023 [place] Tinea unguium B35.1 and Type 2 diabetes mellitus with polyneuropathy E11.[address] [address] 01/14/2024 [place] Tinea unguium B35.1 and Type 2 diabetes mellitus with polyneuropathy E11.[address] [address] 04/03/2024 [place] Tinea unguium B35.1 and Type 2 diabetes mellitus with polyneuropathy E11.[address] [address] 06/16/2024 [place] Tinea unguium B35.1 and [...] Martinez Alphonso martinez, 08/26/2024 03:15:00 PM, [address] [place], [address], Insurance Providers Payer Name Payer Address Payer Phone Subscriber Number Group Number Insured Name Patient Relationship to Insured Coverage Start Date Coverage End Date Medicare [facility] [address] [place] [address] [id number] George Guy Self - patient is the insured [employer] [address] [place] [address] [id number] George Guy Self - patient is the insured Medical (General) History Medical History History ICD Code Arthritis Back,Hip,and Knee pain Broken bones Diabetic Diverticulosis Heart disease High blood pressure Psoriasis/eczema Reflux ( GERD) Warts Measles Chicken pox Surgical History Surgery Date(Month/Year) ankle surgery 03/1979
--- OUTSIDE RECORDS SUMMARY | 2024-07-13 11:24 | XMS_ITS | Data Portability ---
Author Organization [place] - [facility], [facility] Address [address] [place] [address] Assessment Encounter Date Assessment Date Assessment LastModified by Organization Details LastModified Time 12/12/2023 12/12/2023 I am seeing the patient today under the supervision of Dr. Yeh who was available but did not see the patient. Please see procedure documentation for further information about the injection performed today. Not available 12/12/2023 08:18:24 01/13/2024 01/13/2024 I am seeing the patient today under the supervision of Dr. Moise who was available but who did not see the patient. The patient presents today for follow-up. Has known trochanteric bursitis of the Left hip. Has had previous cortisone injection which gave relief until recently. Has had no recent trauma, no fevers or chills, no neurovascular changes. Presents today for further evaluation. PAST MEDICAL/SURGICAL HISTORY Past medical history is reviewed per intake sheet. PHYSICAL FINDINGS On physical examination, the patient is well appearing and in no apparent distress, alert and oriented x3. Gait is symmetric. Examination of the hip reveals the skin to be intact, normal musculature, continued tenderness on palpation over the greater trochanter. No pain with range of motion of the hip, has full range of motion, no crepitus noted with range of motion. No significant pain with straight leg raise. ASSESSMENT Symptomatic trochanteric bursitis of the Left hip. PLAN I explained the nature of the diagnosis with the patient and its treatment options both conservative and surgical.Conserva tive measures were discussed at length including but not limited to physical therapy, bracing, anti-inflammatori es and injection therapies. Please see procedure documentation for further information about the injection performed today. The patient understands and agrees with the plan. They know to call if they have any further questions or concerns regarding their symptoms, or to follow up sooner if needed. [email or web address] Not available 01/13/2024 15:23:20 04/06/2024 04/06/2024 I am seeing the patient today under the supervision of Dr. Valverde who was available but who did not see the patient. The patient presents today for follow-up. Has known trochanteric bursitis of the Left hip. Has had previous cortisone injection which gave relief until recently. Has had no recent trauma, no fevers or chills, no neurovascular changes. Presents today for further evaluation. PAST MEDICAL/SURGICAL HISTORY Past medical history is reviewed per intake sheet. PHYSICAL FINDINGS On physical examination, the patient is well appearing and in no apparent distress, alert and oriented x3. Gait is symmetric. Examination of the hip reveals the skin to be intact, normal musculature, continued tenderness on palpation over the greater trochanter. No pain with range of motion of the hip, has full range of motion, no crepitus noted with range of motion. No significant pain with straight leg raise. ASSESSMENT Symptomatic trochanteric bursitis of the Left hip. PLAN I explained the nature of the diagnosis with the patient and its treatment options both conservative and surgical.Conserva tive measures were discussed at length including but not limited to physical therapy, bracing, anti-inflammatori es and injection therapies. Please see procedure documentation for further information about the injection performed today. Will follow up in 3 months for further evaluation. The patient understands and agrees with the plan. They know to call if they have any further questions or concerns regarding their symptoms, or to follow up sooner if needed. [email or web address] Not available 04/06/2024 15:45:49 04/09/2024 04/09/2024 I am seeing the patient today under the supervision of Dr. Valverde Who was available but who did not see the patient. HPI: Patient comes in for recheck of bilateral knee pain. Has known osteoarthritis in the medial compartment of the knee(s). At his last appointment for the knees we had implemented bilateral viscosupplementat ion. He states that this is helping his knees to some extent. He has noticed a reduction in his symptoms. Still has some residual pain about the medial compartment of his knees. No new injury or modalities. Past family, medical, social history and review of systems has been reviewed, updated and is located in the patient? s chart. Examination:The patient is well appearing and in no apparent distress. Alert and oriented x3. Vital signs per intake sheet. Examination of the bilateral knee reveals no effusion erythema or warmth. Decreased range of motion. Slight varus deformity. Point tender over the medial joint line. Calf soft and nontender. 4+/5 strength of knee flexion extension. Impression: Osteoarthritis, bilateral knee Plan: Nature of the diagnosis discussed with the patient today. Both surgical and nonsurgical options were reviewed. Conservative measures were discussed at length including but not limited to physical therapy, bracing, anti-inflammatori es and injection therapies. Please see the procedure note for documentation about the injection performed today. Follow-up with us in 3 months for discussion of continued conservative management versus surgical management. [email or web address] Not available 04/09/2024 14:52:02 07/02/2024 07/02/2024 I am seeing the patient today under the supervision of Dr. Valverde who was available but who did not see the patient. The patient presents today for follow-up. Has known trochanteric bursitis of the Left hip. Has had previous cortisone injection which gave relief until recently. Has had no recent trauma, no fevers or chills, no neurovascular changes. Presents today for further evaluation. PAST MEDICAL/SURGICAL HISTORY Past medical history is reviewed per intake sheet. PHYSICAL FINDINGS On physical examination, the patient is well appearing and in no apparent distress, alert and oriented x3. Gait is symmetric. Examination of the hip reveals the skin to be intact, normal musculature, continued tenderness on palpation over the greater trochanter. No pain with range of motion of the hip, has full range of motion, no crepitus noted with range of motion. No significant pain with straight leg raise. ASSESSMENT Symptomatic trochanteric bursitis of the Left hip. PLAN I explained the nature of the diagnosis with the patient and its treatment options both conservative and surgical.Conserva tive measures were discussed at length including but not limited to physical therapy, bracing, anti-inflammatori es and injection therapies. Please see procedure documentation for further information about the injection performed today. Will follow up in 3 months for further evaluation. The patient understands and agrees with the plan. They know to call if they have any further questions or concerns regarding their symptoms, or to follow up sooner if needed. [email or web address] Not available 07/02/2024 12:44:40 Plan of Treatment Reminders Order Date Submit Date Provider Last Modified By Organization Details Last Modified Time Details Appointments RECHECK 15 2023 03:45P M Natanael Blackmon PA-C Not available Not available Not available RECHECK 15 2024 09:15A M Natanael Blackmon PA-C Not available Not available Not available Lab None recorded . Referral None recorded . Procedures None recorded . Surgeries None recorded . Imaging None recorded . Medication Orders None recorded . Patient TargetsNo targets recorded. Patient InstructionsNo instructions recorded. Reason for Referral None Reported. Results Created Date Observation Date Name Description Value Unit Range Abnormal Flag Note LastModifiedBy Organization Detail LastModifiedTime 03/21/20 24 09/29/2021 imagi ng/di agnos tic resul t No observ ation record ed. [email or web address] Not Available 02/21 05:51:22 Result Notes None recorded. Problems Name Problem SNOMED Code Status Onset Date Resolution Date Notes Provider Name and Address Organization Details Recorded Time Bilateral osteoarthr itis of knees 7640325542869 07 Active 2021 Status : 'A'; Not Available [facility] 4 11:13:53 Pain of bilateral knee joints 7172426911768 04 Active 2023 NORMA AGUILAR [facility] 4 08:57:39 Problem Notes None recorded. Procedures Surgical History Date Name Laterality Status Provider Name and Address Organization Details Recorded Time 4 JZHip Inj completed Natanael Blackmon PA-C [address], [place], [address], [facility] 07/02/2024 12:44:42 4 RANDI INJ Fer completed Natanael Blackmon PA-C [address], [place], [address], [facility] 04/09/2024 08:08:13 4 HeidiZHip Inj completed Natanael Blackmon PA-C [address], [place], [address], [facility] 04/06/2024 12:48:48 4 Hip Kenalog 1cc Injection, L/R completed Natanael Blackmon PA-C [address], [place], [address], [facility] 01/13/2024 15:23:32 4 VISCO-3 Knee Injection completed Natanael Blackmon PA-C [address], [place], [address], [facility] 12/12/2023 08:18:15 4 VISCO-3 Knee Injection completed Natanael Blackmon PA-C [address], [place], [address], [facility] 12/05/2023 08:41:38 4 VISCO-3 Knee Injection completed Natanael Blackmon PA-C [address], [place], [address], [facility] 11/26/2023 08:04:38 4 Knee Kenalog 40 1cc Injection, Bilateral completed Ariane Garcia PA-C [address], [place], [address], [facility] 11/01/2023 09:29:30 4 Hip Kenalog 1cc Injection, L/R completed Natanael Blackmon PA-C [address], [place], [address], [facility] 10/08/2023 09:27:23 Imaging Results Imaging Date Name Status LastModified by [facility] Details LastModified Time 09/29/2021 imaging/diag nostic result completed [email or web address] Information not available 03/21/2024 05:51:22 Procedure Notes None recorded. Medical Equipment None Reported. Allergies No known drug allergies Medications Name Sig Start Date Stop Date Status Note LastModified by Organization Details LastModified Time bumetanide 2 mg tablet TAKE 1 TABLET BY MOUTH TWICE A DAY active Not Available Not Available No t Available oxybutynin chloride ER 10 mg tablet,exte nded release 24 hr TAKE 1 TABLET BY MOUTH EVERY DAY FOR 30 DAYS active Not Available Not Available No t Available glipizide ER 10 mg tablet, extended release 24 hr TAKE 1 TABLET BY MOUTH EVERY DAY DIRECTED active Not Available Not Available No t Available meloxicam 15 mg tablet TAKE 1 TABLET BY MOUTH EVERY DAY active Not Available Not Available No t Available lisinopril 20 mg tablet TAKE 2 TABLETS BY MOUTH EVERY DAY active Not Available Not Available No t Available famotidine 40 mg tablet TAKE 1 TABLET BY MOUTH TWICE A DAY active Not Available Not Available No t Available glipizide ER 5 mg tablet, extended release 24 hr TAKE 1 TABLET BY MOUTH EVERY DAY 07/02 completed Not Available Not Available Not Available triamcinolo ne acetonide 0.1 % topical cream APPLY THIN COAT TO AFFECTED AREA TWICE A DAY TOPICALLY active Not Available Not Available No t Available terbinafine HCl 250 mg tablet TAKE 1 TABLET BY MOUTH EVERY DAY FOR 90 DAYS 10/07 completed Not Available Not Available Not Available tamsulosin 0.4 mg capsule TAKE 1 CAPSULE BY MOUTH EVERY DAY 10/07 completed Not Available Not Available Not Available betamethaso ne dipropionat e 0.05 % topical cream 10/07 completed Not Available Not Available Not Available oxybutynin chloride ER 5 mg tablet,exte nded release 24 hr 01/12 completed Not Available Not Available Not Available metoprolol succinate ER 25 mg tablet,exte nded release 24 hr TAKE 1 TABLET BY MOUTH EVERY DAY active Not Available Not Available No t Available metformin ER 500 mg tablet,exte nded release 24 hr TAKE 1 TABLET BY MOUTH TWICE A DAY active Not Available Not Available No t Available Lantus Solostar U-100 Insulin 100 unit/mL (3 mL) subcutaneou s pen INJECT 3 UNITS EVERY DAY BY SUBCUTANE OUS ROUTE DIRECTED FOR 30 DAYS. active Not Available Not Available No t Available Vitals Date Recorded Body height Provider Name an d Address Organization Details Last Updated DateTime 12/12/2023 172.72 cm madie matias [place] - [facility] 12/12/2023 13:03:47 Date Recorded Body height Body mass index (BMI) Body weight Provider Name and Address Organization Details Last Updated DateTime 01/13/2024 172.72 cm 53.2 kg/m2 076675.33 g CAROLINE RAMIREZ [facility] 01/13/2024 15:08:57 Date Recorded Body height Body mass index (BMI) Body weight Provider Name and Address Organization Details Last Updated DateTime 04/06/2024 172.72 cm 53.2 kg/m2 079953.33 g Rebecca Ovalleta [facility] 04/06/2024 15:39:58 Date Recorded Body height Body mass index (BMI) Body weight Provider Name and Address Organization Details Last Updated DateTime 04/09/2024 172.72 cm 53.2 kg/m2 000000.33 g Rebecca Sanchezalta [facility] 04/09/2024 14:25:59 Date Recorded Body height Body mass index (BMI) Body weight Provider Name and Address Organization Details Last Updated DateTime 07/02/2024 172.72 cm 53.2 kg/m2 892964.33 g CAROLINE RAMIREZ [facility] 07/02/2024 15:12:23 Social History Question Answer Notes LastModified by Organizat ion Details LastModified Time Tobacco Smoking Status Never Smoker [facility] 10/08/2023 09:05:56 What Is Your Level Of Alcohol Consumption? None Information not available 10/08/2023 What Is Your Relationship Status? Information not available 10/08/2023 Do You Use Any Illicit Or Recreational Drugs? No Information not available 10/08/2023 Do You Or Have You Ever Used Any Other Forms Of Tobacco Or Nicotine? No Information not available 10/08/2023 Sex: Unknown Functional Status None recorded. Mental Status None recorded. Family History Nothing Reported. Medical History Condition Response Allergies/Hayfever N Coronary Artery Disease N Anxiety/Depression N Emphysema N Thyroid Problems N COPD N Pacemaker N Kidney/Bladder Problems N Anemia N Vascular Disease N Gastrointestinal Disease N Heart Attack (VA) N Diabetes Y Autoimmune disease N Bleeding Disorder N Orthotics N Arthritis Y Seizures/Epilepsy N Blood Clot N AIDS/HIV N Congestive Heart Failure (CHF) N Acid Reflux (GERD) N Cancer N Stroke N Asthma N Peripheral Vascular Disease N Sleep Apnea Y Hepatitis N Heart Disease N Rheumatoid Arthritis N Arrhythmia N Pulmonary Embolism N Fibromyalgia N Hypertension Y Osteoporosis N Past Encounters Encounter ID Performer Location Encounter Start Date Encounter Closed Date Diagnosis/Indication Diagnosis SNOMED-CT Code Diagnosis ICD10 Code [id number] Natanael Blackmon PA-C [place] [address] [place] [address] 10/08/2023 08:56:03 10/08/2023 09:30:10 Trochanteric bursitis of left hip 5256708669 02620 M70.62 [id number] Ariane Garcia PA-C [facility] [address] [place] [address] 11/01/2023 08:33:11 11/21/2023 15:30:44 Pain of bilateral knee joints 9852791294 50296 M25.561 M25.562 Bilateral osteoarthritis of knees 2368870851 97437 M17.0 [id number] Natanael Blackmon PA-C [facility] [address] [place] [address] 11/26/2023 12:46:29 12/19/2023 10:41:31 Bilateral osteoarthritis of knees 3183378290 58620 M17.0 [id number] Natanael Blackmon PA-C [facility] [address] [place] [address] 12/05/2023 13:13:11 12/26/2023 15:01:13 Bilateral osteoarthritis of knees 0156147963 97873 M17.0 [id number] Natanael Blackmon PA-C [facility] [address] [place] [address] 12/12/2023 12:28:59 01/01/2024 09:12:40 Bilateral osteoarthritis of knees 2137151419 84957 M17.0 [id number] Natanael Blackmon PA-C [facility] [address] [place], [place] [address] 01/13/2024 15:05:08 02/17/2024 12:53:04 Trochanteric bursitis of left hip 6234617421 21706 M70.62 [id number] JOSÉ MIGUEL [place] [address] [place] [address] 04/09/2024 13:59:34 04/30/2024 12:15:05 Bilateral osteoarthritis of knees 6370194780 20065 M17.0 [id number] JOSÉ MIGUEL [place] [address] [place] [address] 04/06/2024 15:32:21 04/06/2024 16:47:09 Trochanteric bursitis of left hip 2414038544 23948 M70.62 [id number] Natanael Blackmon PA-C [facility] [address] [place] [address] 07/02/2024 14:47:05 07/02/2024 15:36:10 Trochanteric bursitis of left hip 3922894039 74058 M70.62 Health Concerns Section Related Observation LastModified by Organization Detai ls LastModified Time None Recorded Concern Status LastModified by Organization Details LastModified Time None Recorded Advance Directives Directive None Recorded Payers Encounter Date Sequence Insurance Name Policy Number Policy Nation Covered Member ID Nation Member ID Guarantor Name 12/12/2023 2 [place] [id number] George Guy [id number] George Guy 12/12/2023 1 [place] George Guy [id number] George Guy 01/13/2024 2 [place] [id number] George Guy [id number] George Guy 01/13/2024 1 [place] George Guy [id number] George Guy 04/06/2024 2 [place] [id number] George Guy [id number] George Guy 04/06/2024 1 [place] George Guy [id number] George Guy 04/09/2024 2 [place] [id number] George Guy [id number] George Guy 04/09/2024 1 [place] George Guy [id number] George Guy 07/02/2024 2 [place] [id number] George Guy [id number] Goerge Guy 07/02/2024 1 [place] George Guy [id number] George Guy
--- OUTSIDE RECORDS SUMMARY | 2024-07-13 11:24 | XMS_ITS ---
Author Organization [facility] [place] Address [address] [place] [address] Care Team Providers Care Cruise Counselor Name Role Phone Sukhwinder Block MD Primary Care Provider Tierra Quevedo Unavailable [phone] Allergies No Known Allergies REASON FOR VISIT [...] 024 Encounters Encounter Location Date Provider Diagnosis [facility] [address] [address] 01/14/2024 Tierra Rodriguez Tinea unguium B35.1 and Type 2 diabetes mellitus with polyneuropathy E11.42 Assessments Encounter Date Diagnosis (ICD Code) Assessment Notes Treatment Notes Treatment Clinical Notes Section Notes 01/14/2024 Tinea unguium (ICD-10 - B35.1) 01/14/2024 Type 2 diabetes mellitus with polyneuropathy (ICD-10 - E11.42) Plan Of Treatment Next Appt Details Follow Up: 2 Months, Reason: Provider Name:Tierra martinez, 08/26/2024 03:15:00 PM, [address] [place] [address], [address], Procedure Notes * Category Sub-Category Detail Notes [...] as necessary. Patient chooses, no pharmaceutical tx (55078) Keratoma Treatment Parring or Cutting o f Benign Hyperkeratotic Lesion(s) 74824 ( More than 4 Lesions ) - The Benign hyperkeratotic lesions, as described above were pared, and/or cut utilizing a sterile 15 blade, tissue nippers, and/or dremel Progress Notes * Dayami GUYOB: (63 yo M)Acc No.[id number]:01/14/2024 Progress Note Patient:George Richards Provider:?Tierra Rodriguez DPM :1960???Age:63 Y???Sex:Male Canelo e:01/14/2024 Address:[address], [place] [address] Pcp:Sukhwinder Block MD Subjective: * Chief Complaints: [...] as necessary. Patient chooses, no pharmaceutical tx (91224).?Keratoma Treatment:?Parring or Cutting of Benign Hyperkeratotic Lesion(s)?77528 ( More than 4 Lesions ) - The Benign hyperkeratotic lesions, as described above were pared, and/or cut utilizing a sterile 15 blade, tissue nippers, and/or dremel.? * Procedure Codes:?10859 DEBRI DE NAIL, 6 OR MORE, Modifiers: XS 87144 TRIM SKIN LESIONS, OVER 4, Modifiers: XS * Follow Up:?2 Months * Images: * Sign off status: Completed true * Provider:?Tierra Rodriguez, BESSY Date:? Generated for Gisell morales/Frances/eTransmitting on:?07/13/2024 11:24 AM EST History and Physical Notes * HPI [...] Eye Exam:: no retin opathy Vascular DP PULSES (B): 2/4, B/L PT PULSES (B): 0/4, B/L CAPILLARY FILL TIME: 3 secs. per digit, B/L TEMPERTURE GRADIENT (C): decreased, cool to cool, proximal to distal, B/L TROPHIC CONDITION-TEXTURE/ELASTICITY/TURGOR/HAIR GROWTH (B): sparce hair growth EDEMA (C): 2/4 , B/L PIGMENTATION: pale, B/L Nails NAILS are: Elongated, overg rown, dystrophic, lytic, greater than 3mm thick, discolored and friable with crumbly malodorous subungual debris, with pain on palpation 1-5 B/L , proximal clearing of nail 50 percent
--- OUTSIDE RECORDS SUMMARY | 2024-07-13 11:24 | XMS_ITS ---
Author Organization [facility] [place] Address [address] [place] [address] Care Team Providers Care Comb Machine Operator Name Role Phone Sukhwinder Block MD Primary Care Provider Tierra Quevedo Unavailable [phone] Allergies No Known Allergies REASON FOR VISIT [...] 024 Encounters Encounter Location Date Provider Diagnosis [facility] [address] [address] 06/16/2024 Tierra Rodriguez Tinea unguium B35.1 and Type 2 diabetes mellitus with polyneuropathy E11.42 Assessments Encounter Date Diagnosis (ICD Code) Assessment Notes Treatment Notes Treatment Clinical Notes Section Notes 06/16/2024 Tinea unguium (ICD-10 - B35.1) 06/16/2024 Type 2 diabetes mellitus with polyneuropathy (ICD-10 - E11.42) Plan Of Treatment Next Appt Details Follow Up: 2 Months, Reason: Provider Name:Tierra martinez, 08/26/2024 03:15:00 PM, [address] [place] [address], [address], Procedure Notes * Category Sub-Category Detail Notes [...] use of a nail nipper and/or dremel-type contour grinder, to a more viable healthy nail [...] to maintain effectiveness in symptomatic relief - 90948 Keratoma Treatment Parring or Cutting o f Benign Hyperkeratotic Lesion(s) (-56) 2-4 Lesions - The Benign hyperkeratotic lesions, ( 4) in total, locations as stated and described in exam, were pared, and/or cut utilizing a sterile 15 blade, tissue nippers, and/or power Acusphere instrumentation - 32225 Progress Notes * Dayami GUYOB: 9 (64 yo M)Acc No.[id number]:06/16/2024 Progress Note Patient:?George GUY Provider:?Tierra Rodriguez DPM :1960???Age:64 Y???Sex:Male Canelo e:06/16/2024 Address:[address] [place], [place] [id number] Pcp:Sukhwinder Block MD Subjective: * Chief Complaints: [...] use of a nail nipper and/or dremel-type contour grinder, to a more viable healthy nail [...] to maintain effectiveness in symptomatic relief - 48753.?Keratoma Treatment:?Parring or Cutting of Benign Hyperkeratotic Lesion(s)?(-56) 2-4 Lesions - The Benign hyperkeratotic lesions, ( 4) in total, locations as stated and described in exam, were pared, and/or cut utilizing a sterile 15 blade, tissue nippers, and/or power dremel instrumentation - 34347.? * Procedure Codes:?30734 DEBRI DE NAIL, 6 OR MORE, Modifiers: XS 55865 TRIM SKIN LESIONS, 2 TO 4, Modifiers: XS * Follow Up:?2 Months * Images: * Sign off status: Completed true * Provider:?Tierra Rodriguez DPM Date:? Generated for Gisell morales/Frances/Bryce on:?07/13/2024 11:24 AM EST History and Physical [...]
--- OUTSIDE RECORDS SUMMARY | 2024-07-13 11:24 | XMS_ITS ---
Author Organization [facility] [place] Address [address] [place] [address] Care Team Providers Care Sales Development Associate Name Role Phone Sukhwinder Block MD Primary Care Provider Tierra Quevedo Unavailable [phone] Allergies No Known Allergies REASON FOR VISIT [...] 024 Encounters Encounter Location Date Provider Diagnosis [facility] [address] [address] 04/03/2024 Tierra Rodriguez Tinea unguium B35.1 and Type 2 diabetes mellitus with polyneuropathy E11.42 Assessments Encounter Date Diagnosis (ICD Code) Assessment Notes Treatment Notes Treatment Clinical Notes Section Notes 04/03/2024 Tinea unguium (ICD-10 - B35.1) 04/03/2024 Type 2 diabetes mellitus with polyneuropathy (ICD-10 - E11.42) Plan Of Treatment Next Appt Details Follow Up: 2 Months, Reason: Provider Name:Tierra Loreto martinez, 08/26/2024 03:15:00 PM, [address] [place] [address], [address], Procedure Notes * Category Sub-Category Detail Notes [...] as necessary. Patient chooses, no pharmaceutical tx (10346) Keratoma Treatment Parring or Cutting o f Benign Hyperkeratotic Lesion(s) 75160 ( More than 4 Lesions ) - The Benign hyperkeratotic lesions, as described above were pared, and/or cut utilizing a sterile 15 blade, tissue nippers, and/or dremel Progress Notes * Norman GUY: (63 yo M)Acc No.[id number]:04/03/2024 Progress Note Patient:?George Guy Provider:?Tierra Rodriguez DPM :1960???Age:63 Y???Sex:Male Canelo e:04/03/2024 Address:[address] [place], [place] [id number] Pcp:Sukhwinder Block MD Subjective: * Chief Complaints: [...] as necessary. Patient chooses, no pharmaceutical tx (05613).?Keratoma Treatment:?Parring or Cutting of Benign Hyperkeratotic Lesion(s)?02168 ( More than 4 Lesions ) - The Benign hyperkeratotic lesions, as described above were pared, and/or cut utilizing a sterile 15 blade, tissue nippers, and/or dremel.? * Procedure Codes:?34520 DEBRI DE NAIL, 6 OR MORE, Modifiers: XS 09982 TRIM SKIN LESIONS, OVER 4, Modifiers: XS * Follow Up:?2 Months * Images: * Sign off status: Completed true * Provider:?Tierra Rodriguez DPM Date:? Generated for Quani ng/Facindyg/eTransmitting on:?07/13/2024 11:24 AM EST History and Physical [...]
--- OUTSIDE RECORDS SUMMARY | 2024-07-13 11:24 | XMS_ITS | Patient Health Record ---
Author Organization [facility] Address [address] [place] [address] Care Team Providers Care Vamp Liner Name Role Phone Umair Sukhwinder Primary Care Provider Minh Nguyen Unavailable [phone] ALLERGIES No Known Allergies REASON FOR REFERRAL [...] esophagitis presence not specified (K21.9) Active confirmed 732509697 Problem Rectal bleed (K62.5) Active confirmed 1 1304005 Problem Rectal pain (K62.89) Active confirmed 7 8777883 Problem Constipation, unspecified constipation type (K59.00) Active confirmed [id number] PLAN OF TREATMENT Future Test Test Name Order Date COLONOSCOPY 11/12/2012 UPPER GI ENDOSCOPY 08/25/2019 COLONOSCOPY 08/25/2019 Insurance Providers Payer Name Payer Address Payer Phone Subscriber Number Group Number Insured Name Patient Relationship to Insured Coverage Start Date Coverage End Date [facility] [employer] [facility] [address] [place] [address] [id number] SCARLETT LOPEZ Self - patient is the insured MEDICAL (GENERAL) HISTORY Medical History History ICD Code Arthritis in his knees Denies GA,DM,CVA,Lung disease,renal dise ase Sleep apnea-uses a CPAP machine Neg screening colonoscopy in 01/2013 except diverticulosis and minimal internal hemorrhoids GERD-EGD 10/2019 Moderate-siz ed HH, small area of Edgar's without dysplasia; no esophagitis LE edema Neg. colonoscopy in 10/2019 except consultant internship al hemorrhoids Surgical History Surgery Date(Month/Year) Ankle surgery RIGHT Hydrocele repair 2017
--- OUTSIDE RECORDS SUMMARY | 2024-07-13 11:25 | XMS_ITS | Continuity of Care Document ---
Author Organization [place] [facility], [facility] 1st Floor Address [address] [place] [address] Assessment Encounter Date Assessment Date Assessment LastModified by Organization Details LastModified Time 07/02/2024 07/02/2024 I am seeing the patient [...] and its treatment options both conservative and surgical.Conserv ative measures were discussed at length including but not limited to physical therapy, bracing, anti-inflammator ies and injection therapies. Please see procedure documentation for further information about the injection performed today. Will follow up in 3 months for further evaluation. The patient understands and agrees with the plan. They know to call if they have any further questions or concerns regarding their symptoms, or to follow up sooner if needed. [email or web address] Not available 07/02/2024 12:44:40 Plan of Treatment [...] instructions recorded. Reason for Referral None Reported. Problems Name Problem SNOMED Code Status Onset Date Resolution Date Notes Provider Name and Address Organization Details Recorded Time Bilateral osteoarthr itis of knees 4345329243981 07 Active 2021 Status : 'A'; Not Available [facility] 4 11:13:53 Pain of bilateral knee joints 1964250901566 04 Active 2023 NORMA AGUILAR [facility] 4 08:57:39 Problem Notes None recorded. Procedures Surgical History Date Name Laterality Status Provider Name and Address Organization Details Recorded Time 4 JZHip Inj completed Natanael Blackmon PA-C [address] [place] [address], [address], [facility] 07/02/2024 12:44:42 4 JZKNEE INJ Fer completed Natanael Blackmon PA-C [address] [facility], [place], [address], [facility] 04/09/2024 08:08:13 4 JZHip Inj completed Natanael Blackmon PA-C [address] [facility], [place], [address], [facility] 04/06/2024 12:48:48 4 Hip Kenalog 1cc Injection, L/R completed Natanael Blackmon PA-C [address] [facility], [place], [address], [facility] 01/13/2024 15:23:32 4 VISCO-3 Knee Injection completed Natanael Blackmon PA-C [address], [place], [address], [facility] 12/12/2023 08:18:15 4 VISCO-3 Knee Injection completed Natanael Blackmon PA-C [address], [place], [address], [facility] 12/05/2023 08:41:38 4 VISCO-3 Knee Injection completed Natanael Blackmon PA-C [address], [place], [address], [facility] 11/26/2023 08:04:38 4 Knee Kenalog 40 1cc Injection, Bilateral completed Ariane Garcia PA-C [address], [place], [address], [facility] 11/01/2023 09:29:30 4 Hip Kenalog 1cc Injection, L/R completed Natanael Blackmon PA-C [address], [place], [address], [facility] 10/08/2023 09:27:23 Imaging Results None recorded. Procedure Notes None recorded. Medical Equipment None [...] TAKE 1 TABLET BY MOUTH EVERY DAY 12/12 /2024 completed Not Available Not Available Not Available [...] t Available Vitals Date Recorded Body height Body mass index (BMI) Body weight Provider Name and Address Organization Details Last Updated DateTime 07/02/2024 172.72 cm 53.2 kg/m2 782814.33 g CAROLINE RAMIREZ [facility] 07/02/2024 15:12:23 Social History Question Answer Notes LastModified by Organizat ion Details LastModified Time Tobacco Smoking Status Never Smoker CAROLINE Woodruff'HEUREUMark null, [facility] 10/08/2023 09:05:56 What Is Your Level Of [...] Thyroid Problems N COPD N Pacemaker N Anemia N Kidney/Bladder Problems N Vascular Disease N Heart Attack ([place]) N Gastrointestinal Disease N Diabetes Y Autoimmune disease N Bleeding [...] Diagnosis/Indication Diagnosis SNOMED-CT Code Diagnosis ICD10 Code [id number] JOSÉ MIGUEL [place] [address] [place] [address] 07/02/2024 14:47:05 07/02/2024 15:36:10 Trochanteric bursitis of left hip 1017096528 19086 M70.62 Health Concerns Section Related Observation LastModified by Organization Detai ls LastModified Time None Recorded Concern Status LastModified by Organization Details LastModified Time None Recorded Payers Encounter Date Sequence Insurance Name Policy Number Policy Nation Covered Member ID Nation Member ID Guarantor Name 07/02/2024 2 [place] [id number] George Guy [id number] George Guy 07/02/2024 1 [place] [employer] George Guy [id number] George Guy
[2024-07-13 13:50] LABS: Estimated Average Glucose 123 mg/dL; Hemoglobin A1C 141.1802 umol/L; Hemoglobin A1c % 5.9 % (<6.0); Total Hemoglobin (HGBA1C) 3482.3182 umol/L
[2024-07-13 14:30] LABS: Alanine Aminotransferase 17 U/L (0-40); Albumin Level 3.9 g/dL (3.5-5.0); Alkaline Phosphatase 66 U/L (39-117); Anion Gap 12 (12-20); Aspartate Amino Transferase 20 U/L (5-37); Bilirubin Total 0.6 mg/dL (0.0-1.0); Blood Urea Nitrogen 27 mg/dL (9-16); Carbon Dioxide 27 mmol/L (22-29); Chloride 106 mmol/L (96-108); Estimated Glomerular Filt Rate > 60; Glucose Random 132 mg/dL (60-115); Potassium 3.9 mmol/L (3.3-5.1); Sodium 141 mmol/L (135-145); Total Protein 7.6 g/dL (6.5-8.0)
== END 2024-07-13 11:22 | disposition home or self-care (01) ==
LOC: HO.HMGCLR 11:21
PROVIDERS: PCP Internal Medicine; Visit Provider Physician Assistant
DX: N17.0 Acute kidney failure with tubular necrosis (principal); Z13.1 Encounter for screening for diabetes mellitus
CPT/HCPCS: 36415; 80053; 83036

== ENCOUNTER 2024-12-30 14:57 | Outpatient (AMB) | payer MEDICARE, SELFPAY ==
[2024-12-30 15:05] VITALS: BP 130/80; PULSE 80; O2SAT 98; BMI 49.5
--- NOTE | 2024-12-30 15:05 | A.OFFVIS_ITS ---
Vital Signs 12/30/24 15:05 Height 5 ft 9 in Weight 335 lb BMI 49.5 BP 130/80 Blood Pressure Location Lt brachial Position Sitting Pulse 80 Pulse Source Pulse Oximeter Pulse Oximetry (%) 98 Oxygen Delivery Method Room Air Intake Visit Reasons: Obstructive sleep apnea Intake Note: pt is here for ko follow up and states he is feeling good, cpap is going well. System Archive Analyst Required: No Allergies No Known Allergies [No Known Allergies*] Allergy (Verified 12/30/24 15:26) Medication List - Last Reconciled 12/30/24 by Aed Murrell MD bumetanide 2 mg PO DAILY famotidine 40 mg PO BID glipizide 5 mg PO DAILY lisinopril 20 mg PO BID meloxicam 15 mg PO DAILY metoprolol succinate ER 25 mg PO DAILY Do you need a note to return to daycare/school/sports/work: No HPI HPI Obstructive sleep apnea: Details: 64 years old very pleasant gentleman is here for follow-up after 6 months. He is a case of morbid obesity and obstructive sleep apnea which is being treated with CPAP very effectively. He has not lost any weight. He does use the CPAP very regularly every night and sleeps well. He has no issue with the CPAP device are the mask. [facility] Medical History Chronic right heart failure Anal pain Morbid obesity due to excess calories KO on CPAP Essential hypertension SOB (shortness of breath) Leg edema Surgical History History of ankle surgery History of hydrocelectomy Family History Father No problems noted. Mother No problems noted. Social History Alcohol intake: former Patient Tobacco Use Status: Never used Tobacco Review of Systems Const All systems reviewed & are unremarkable except as noted in HPI and below Reports no additional complaints and Denies headache(s) Eyes Reports no additional complaints ENT Denies vertigo, Denies dizziness, Denies headache(s), Denies nasal congestion and Denies nasal discharge Card Denies chest pain, Denies leg edema, Denies lightheadedness and Reports dyspnea on exertion (MILD ) Resp Denies cough and Reports dyspnea on exertion (MILD ) GI Denies change in bowel habits, Denies heartburn and Denies diarrhea Reports no additional complaints Musc Reports no additional complaints and Denies muscle weakness Skin/Breast Reports system reviewed and no additional complaints, except as documented Neuro Denies vertigo, Denies dizziness, Denies headache(s) and Denies focal weakness Psych Reports no additional complaints Endo Reports no additional complaints Rodolfo/Lymph Reports no additional complaints Aller/Immun Reports no additional complaints Physical Exam Vital Signs: Last Vital Signs Pulse 80 12/30/24 15:05 BP 130/80 12/30/24 15:05 Pulse Ox 98 12/30/24 15:05 Oxygen Delivery Method Room Air 12/30/24 15:05 BMI result Body Mass Index 49.5 He is morbidly obese Const General: comfortable, no acute distress, alert and awake Orientation/consciousness: patient oriented x3 HEENT Head: Yes normal to inspection General nose exam: No nasal polyps present and No nasal discharge present Face and sinus: Yes sinuses nontender Mouth: oropharynx normal (Very narrow oropharynx, Mallampati class 4) Throat: Yes posterior oropharynx normal Eyes General: appearance normal, both eyes and all related structures Neck Neck: Yes normal visual inspection, Yes no lymphadenopathy, Yes trachea midline and Yes no JVD Thyroid: Thyroid normal Chest Chest palpation & inspection: normal inspection of the chest, normal palpation of entire chest wall and no tenderness Resp Effort & Inspection: normal respiratory effort and other (Breath sounds are decreased over the basilar areas) Auscultation: clear to auscultation bilaterally, no rales and no wheezes Cardio Palpation: PMI not normal (Not palpable) Rate: regular rate Rhythm: regular rhythm Heart sounds: no gallops and no murmurs GI Palpation (GI): Soft to palpation, nontender, No hepatosplenomegaly present, no masses and Other GI palpation findings present Auscultation: normal bowel sounds Back/Spine/Pelvis Thoracic/Lumbar Spine: thoracic and lumbar spine normal to inspection and thoraco-lumbar ROM limited Skin General skin exam: no rashes or lesions noted Neuro General: patient oriented x3 and no focal motor deficits Cranial nerves: Yes CN's II-XII intact bilaterally Extrem General: Yes normal to inspection, Yes no clubbing, cyanosis or edema and Yes no calf tenderness Psych Speech and movement: Normal speech and movement present Results Reviewed Results Reviewed: Compliance report for the last 30 nights reviewed. He has used 100% of the nights. Average use it per night is 6 hours 11 minutes. Pressure used between 15-16 cm. Residual AHI 1.1 Assessment & Plan Assessment & Plan (1) Morbid obesity due to excess calories: Comment: This gentleman is a case of super morbid obesity. Over the past many years he has not been able to lose any weight. He does not want to join any weight management program. He is also not able to do any significant exercise. Code(s): E66.01 - Morbid (severe) obesity due to excess calories Category: Medical Plan: We discussed about the weight issue. Again he does not want to join a weight management program. He will try to watch his diet. I advised him to discuss with his primary care physician if he should go on anti obesity med. (2) KO on CPAP: Comment: He has history of obstructive sleep apnea for many years. Recently started on new CPAP machine . After a repeat sleep study He is very happy with the CPAP device and is using it regularly. He is using nasal mask which is comfortable COMPLIANCE IS EXCELLENT AND HE IS DEFINITELY BENEFITING FROM THE USE OF CPAP. Code(s): G47.33 - Obstructive sleep apnea (adult) (pediatric); Z99.89 - Dependence on other enabling machines and devices Category: Medical Plan: COMMENDED FOR GOOD COMPLIANCE, ADVISED TO CONTINUE USING THE CPAP REGULARLY. Coding Level of Care Code Est Pt Level 3 (14870) Diagnoses Morbid obesity due to excess calories E66.01 KO on CPAP G47.33; Z99.89
--- OUTSIDE RECORDS SUMMARY | 2024-12-30 17:12 | XMS_ITS | Clinical Summary ---
[facility] Organization [facility] Address [address] [place] [address] Care Team Providers Care Director Of Exhibits Name Role Phone Unavailable Primary Care Provider Unavailabl e Medications No known medications Active Problems Problem Noted Date Diagnosed Date Administrative encounter 04/22/2018 BMI 50.0-59.9, adult 04/22/2018 Social History Tobacco Use Types Packs/Day Years Used Date Smoking Tobacco: Never Smokeless Tobacco: Never Alcohol Use Standard Drinks/Week Comments No 0 (1 standard drink = 0.6 oz pur e alcohol) Sex and Gender Information Value Date Recorded Sex Assigned at Not on file Gender Identity Not on file Sexual Orientation Not on file Last Filed Vital Signs Vital Sign Reading Time Taken Comments Blood Pressure - - Pulse - - Temperature - - Respiratory Rate - - Oxygen Saturation - - Inhaled Oxygen Concentration - - Weight 158.8 kg (350 lb) 04/22/2018 11:38 AM EDT Height 175.3 cm (5' 9 ) 04/22/2018 11:38 AM EDT Body Mass Index 51.69 04/22/2018 11:38 AM EDT Plan of Treatment Health Maintenance Due Date Last Done Comments Hepatitis C Screening 1960 COVID-19 Vaccine (#1) 1960 Depression Screening 1971 Preventative Health Evaluation 1977 DTap / Tdap / Td (1 - Tdap) 1978 Colon Cancer Screening (Colonoscopy) 2004 Shingrix-Zoster Vaccine (1 of 2) 2009 Fall Risk Assessment 2024 Pneumococcal Vaccine (1 of 1 - PCV) 2024 Influenza Vaccine (Season Ended) 2025 RSV Adult > 60+ Yrs or Pregn ant (1 - 1-dose 75+ series) 2034 Hepatitis B Vaccines Aged Out No long er eligible based on patient's age to complete this topic Pneumococcal Vaccine Aged Out No long er eligible based on patient's age to complete this topic RSV Ped < 20 months Aged Out No longe r eligible based on patient's age to complete this topic
== END 2024-12-30 15:24 | disposition home or self-care (01) ==
LOC: HO.HPS 14:58
PROVIDERS: PCP Internal Medicine; Visit Provider Internal Medicine
DX: E66.01 Morbid (severe) obesity due to excess calories (principal); G47.33 Obstructive sleep apnea (adult) (pediatric); Z99.89 Dependence on other enabling machines and devices
CPT/HCPCS: 99213

== ENCOUNTER → 2024-12-30 14:57 | Outpatient (BNVA) | payer MEDICARE, SELFPAY | PROVIDERS: PCP Internal Medicine; Visit Provider Internal Medicine | DX: G47.33 Obstructive sleep apnea (adult) (pediatric) (principal); E66.01 Morbid (severe) obesity due to excess calories; Z99.89 Dependence on other enabling machines and devices; Z68.42 Body mass index [BMI] 45.0-49.9, adult | CPT/HCPCS: 99212 ==

== ENCOUNTER 2025-03-30 13:55 | Outpatient (AMB) | payer MEDICARE, SELFPAY ==
--- OUTSIDE RECORDS SUMMARY | 2025-02-16 09:30 | XMS_ITS ---
Author Organization [facility] [place] Address [address] [place] [address] Care Team Providers Care Criminal Justice Program Director Name Role Phone Sukhwinder Block MD Primary Care Provider Tierra Quevedo Unavailable [phone] Medications Medication SIG (Take, Route, Frequency, Duration) [...] Active Encounters Encounter Location Date Provider Diagnosis [facility] [address] [address] 02/16/2025 Tierra Rodriguez Plan Of Treatment Next Appt Details Provider Name:Tierra martinez, 05/11/2025 02:30:00 PM, [address] [place], [address], Progress Notes * Dayami GUYOB: (64 yo M)Acc No.[id number]:02/16/2025 Progress Note Patient: George VILLASENOR Provider: Ranjan Rodriguez DPM :1960 A ge:64 Y S ex:Male Date:02/16/2025 Address:[address] [place], [place] [phone] Pcp:Sukhwinder Block MD Subjective: * Chief Complaints: [...] 0 02/16/2025 Generated for Gisell morales/Frances/Bryce on: 0 03/30/2025 04:35 PM EDT History and Physical Notes * HPI (History of Present Illness) Category Sub-Category Detail Notes Category Not es At Risk footcare Pt States Last PCP Visit: Date: 5
[2025-03-30 14:07] VITALS: BP 128/70; PULSE 71; BMI 49.8
--- NOTE | 2025-03-30 14:07 | A.OFFVIS_ITS ---
Vital Signs 03/30/25 14:07 Height 5 ft 9 in Weight 337 lb 4.916 oz BMI 49.8 BP 128/70 Blood Pressure Location Lt brachial Position Sitting Pulse 71 Pulse Source Monitor Intake Visit Reasons: 1 yr follow up Allergies No Known Allergies (No Known Allergies*) Allergy (Verified 12/30/24 15:26) Medication List - Last Reconciled 03/30/25 by Jonathan Grace MD bumetanide 2 mg PO DAILY famotidine 40 mg PO BID glipizide 10 mg PO DAILY lisinopril 20 mg PO BID meloxicam 15 mg PO DAILY metoprolol succinate ER 25 mg PO DAILY HPI Comments Details: George returns for follow-up regarding leg swelling. Thought to be mainly related to obesity and right heart failure. He also has obstructive sleep apnea on CPAP. He has previously seen vascular physician at [facility] and was felt josh t the swelling was rather systemic in etiology and not localized venous. Overall, he feels just about the same as before. No new concerns. No angina or any other concerning cardiac symptoms. Weight is very similar to before. [facility] Medical History Chronic right heart failure Anal pain Morbid obesity due to excess calories GAYATHRI on CPAP Essential hypertension SOB (shortness of breath) Leg edema Surgical History History of ankle surgery History of hydrocelectomy Family History Father No problems noted. Mother No problems noted. Social History Alcohol intake: former Patient Tobacco Use Status: Never used Tobacco Review of Systems Const Denies weakness ENT Denies dizziness Card Denies chest pain, Denies chest pain with activity, Denies syncope, Denies rapid heart rate, Denies pedal edema, Denies edema, Denies leg edema, Denies lightheadedness, Denies palpitations, Denies dyspnea, Denies dyspnea on exertion and Denies orthopnea Resp Denies cough, Denies dyspnea and Denies dyspnea on exertion GI Denies hematochezia and Denies change in stool character Musc Denies abnormal gait, Reports myalgias, Denies muscle cramps, Denies muscle weakness, Denies numbness, Denies radiating pain into limb and Denies tingling Neuro Denies abnormal gait, Denies dizziness, Denies syncope, Denies numbness, Denies tingling and Denies weakness Endo Denies palpitations Physical Exam Vital Signs: Last Vital Signs Pulse 71 03/30/25 14:07 BP 128/70 03/30/25 14:07 BMI result Body Mass Index 49.8 Const General: comfortable and no acute distress Orientation/consciousness: patient oriented x3 HEENT Other: Unremarkable Head: Yes normal to inspection Neck Neck: Yes normal visual inspection Chest Chest palpation & inspection: normal inspection of the chest Resp Auscultation: clear to auscultation bilaterally Cardio Palpation: normal PMI Heart sounds: S1 normal heart sound present, S2 normal heart sound present, no gallops, no murmurs and no rubs GI Palpation (GI): Soft to palpation Back/Spine/Pelvis Other: unremarkable Skin General skin exam: no rashes or lesions noted Neuro General: patient oriented x3 Extrem General: Yes normal to inspection Psych Mental Status: mental status grossly normal Office Procedures EKG Details: EKG with underlying sinus rhythm at 71/Min; no ischemic changes; [place] [address]-Yjfwpinhggipourhn, Complete Assessment & Plan Assessment & Plan (1) Chronic right heart failure: Code(s): I50.812 - Chronic right heart failure Category: Medical Plan: Cardiac studies reviewed. Echocardiogram 2021 with LVEF 65-70%; no significant valvular pathology or pulmonary hypertension. In the previous study, there was mild pulmonary hypertension. Stress myocardial perfusion imaging study 2019 does not show any ischemia or infarction. Cardiac BNP in the past well within normal limits but could be false negative due to obesity. He remains on Bumex. Advised him to do labs renal function. Otherwise, main recommendation for managing this would be losing weight but not clear if he can. (2) Essential hypertension: Code(s): I10 - Essential (primary) hypertension Category: Medical Plan: Stable. Listed to be on metoprolol, lisinopril. Again, need follow-up labs and advised him to do. (3) GAYATHRI on CPAP: Comment: He has history of obstructive sleep apnea for many years. Recently started on new CPAP machine . After a repeat sleep study He is very happy with the CPAP device and is using it regularly. He is using nasal mask which is comfortable COMPLIANCE IS EXCELLENT AND HE IS DEFINITELY BENEFITING FROM THE USE OF CPAP. Code(s): G47.33 - Obstructive sleep apnea (adult) (pediatric); Z99.89 - Dependence on other enabling machines and devices Category: Medical Plan: Continue CPAP. (4) Morbid obesity due to excess calories: Comment: This gentleman is a case of super morbid obesity. Over the past many years he has not been able to lose any weight. He does not want to join any weight management program. He is also not able to do any significant exercise. Code(s): E66.01 - Morbid (severe) obesity due to excess calories Category: Medical Plan: We have discussed about this many times including today. However, he has not been able to lose any weight. He is well aware of the implications. Plan Discussion Notes During the visit, we discussed the importance of weight management in alleviating stress on the cardiovascular system and improving heart function. The patient was informed about the need for regular follow-up to monitor heart function and adjust medications as necessary. Patient was informed and verbally consented to the use of an ambient scribe for clinic note documentation during this visit. Orders: Orders Basic Metabolic Panel Today I50.812 - Chronic right heart failure Patient Instructions: - Manage weight to reduce stress on the heart. - Monitor swelling and report any significant changes. Coding Level of Care Code Est Pt Level 4 (71732) Complex EM visit Add On G2211 Diagnoses Chronic right heart failure I50.812 Essential hypertension I10 GAYATHRI on CPAP G47.33; Z99.89 Morbid obesity due to excess calories E66.01 CPT Codes EKG - CPT: 33942-Irjyfbtdmxmhrgixh, Complete ([id number])
--- OUTSIDE RECORDS SUMMARY | 2025-03-30 16:35 | XMS_ITS | Patient Health Record ---
Author Organization [facility] Address [address] [place] [address] Care Team Providers Care Supervisor Color Paste Mixing Name Role Phone Maryradha Sukhwinder Primary Care Provider Minh Nguyen [phone] Allergies No Known Allergies Reason For Referral [...] tablet Orally TWIC E A DAY Active Immunizations Vaccine Route Administration Date Status Comme nts Influenza Unknown 05/24/2020 Administered Social History Alcohol Screen Question Answer Notes Did you have a drink containing alcohol in the p ast year? No Points 0 Interpretation Negative Section Notes: Nonsmoker; no alcohol Nonsmoker; no alcohol Nonsmoker; no alcohol Problems Problem Type SNOMED Code ICD Code Onset Dates Problem Status W/U Status Risk Notes Problem 355974259 Gastroesophageal reflux disease, esophagitis presence not specified (K21.9) Active confirmed Problem 56369680 Rectal bleed (K62.5) Active confirmed Problem 26552480 Rectal pain (K62.89) Active confirmed Problem 95110223 Constipation, unspecified constipation type (K59.00) Active confirmed Plan Of Treatment Future Test Test Name Order Date COLONOSCOPY 11/12/2012 UPPER GI ENDOSCOPY 08/25/2019 COLONOSCOPY 08/25/2019 Insurance Providers Payer Name Payer Address Payer Phone Subscriber Number Group Number Insured Name Patient Relationship to Insured Coverage Start Date Coverage End Date [facility] [address] [place] [address] [id number] LOPEZSCARLETT BOOTHE Self - patient is the insured Medical (General) History Medical History History ICD Code Arthritis in his knees Denies FL,DM,CVA,Lung disease,renal dise ase Sleep apnea-uses a CPAP machine Neg screening colonoscopy in 01/2013 except diverticulosis and minimal internal hemorrhoids GERD-EGD 10/2019 Moderate-siz ed HH, small area of Edgar's without dysplasia; no esophagitis LE edema Neg. colonoscopy in 10/2019 except general internal medicine doctor al hemorrhoids Surgical History Surgery Date(Month/Year) Ankle surgery RIGHT Hydrocele repair 2017
--- OUTSIDE RECORDS SUMMARY | 2025-03-30 16:35 | XMS_ITS | Encounter Summary ---
Author Organization [facility] Address [address] [place] [phone] Phone Care Team Providers Care Detention Deputy Name Role Phone Sukhwinder Block Primary Care Provider [phone] Reason for Visit * Reason Onset Date Comments referral 03/12/2025 Encounter Details Date Type Department Care Team ([facility] st Contact Info) Description 03/12/2025 Telephone [facility] Pulmonary, Allergy and Critical Care Medicine [address] [place], [place] [phone] Sandy Wharton referral Social History Tobacco Use Types Packs/Day Years Used Date Smoking Tobacco: Never Assessed Education Answer Date Recorded Are you interested in more education? Not on allyson e 03/16/2025 Are you concerned about learning? Not on file 03/16/2025 No 03/16/2025 No 03/16/2025 Digital Access Answer Date Recorded No 03/16/2025 No 03/16/2025 Reliable internet access at home? Not on file 03/16/2025 Device with a working camera? Not on file Sex and Gender Information Value Date Recorded Sex Assigned at Not on file Legal Sex Male 10:31 AM EDT Gender Identity Not on file Sexual Orientation Not on file documented as of this encounter Progress Notes * Sandy Wharton - 03/12/2025 10:46 AM EDT Pt called to see if we received his referral. Please contact and advise. Central Support Telephone Appointment Clerk (Please do not reply to this user; this inbox is not monitored.) Thank you. documented in this encounter Plan of Treatment Upcoming Encounters Date Type Department Care Team (Late st Contact Info) Description 11/25/2025 2:00 PM EDT Office Visit [facility] Endocrinology [address] [place] [address] Sun Triplett MD [address] [place] [id number] [email or web address] documented as of this encounter Visit Diagnoses Not on filedocumented in this encounter Care Teams Detention Deputy Relationship Specialty Start Date End Date Sukhwinder Block DO [address] [place] [id number] PCP - General Internal Medicine 03/12/25 documented as of this encounter Additional Source Comments The information contained in this document represents components of the legal health record. It is not the complete legal health record.[facility]
--- OUTSIDE RECORDS SUMMARY | 2025-03-30 16:35 | XMS_ITS | Clinical Summary ---
Author Organization [facility] Address [address] [place] [phone] Phone Care Team Providers Care Medical Manager Name Role Phone Sukhwinder Block Primary Care Provider [phone] Encounters Date Type Department Care Team Description 03/12/2025 Transcribe Orders [facility] Endocrinology [address] [place] [address] [place] [address] Dolores Taveras PA Type 2 diabetes mellitus with hypoglycemia without coma, without long-term current use of insulin (Primary Dx) 03/12/2025 Telephone [facility] Pulmonary, Allergy and Critical Care Medicine [address] [place], [place] [phone] Sandy Wharton referral from Last 3 Months Social History Tobacco Use Types Packs/Day Years [...] on file Sexual Orientation Not on file Plan of Treatment Upcoming Encounters Date Type Department Care Team ([facility] st Contact Info) Description 11/25/2025 2:00 PM EDT Office Visit [facility]inology [address] [place] [address] [place] [address] Sun Triplett MD [address] [id number] [email or web address] Due Date Last Done Comments Adult Td,Tdap Booster 1959 LIPID PANEL 1959 DEPRESSION SCREENING 1971 SMOKING Hx and SMOKELESS TOB ACCO SCREENING 1972 HEPATITIS C SCREENING 1977 HIV ONE-TIME SCREENING (18-6 5 YEARS) 1977 COLOGUARD 2004 COLONOSCOPY 2004 COLORECTAL CANCER SCREENING 2004 FIT TEST 2004 FOBT 2004 SIGMOIDOSCOPY 2004 VIRTUAL COLONOSCOPY 2004 PNEUMOCOCCAL VACCINES (50+ y ears) (1 of 1 - PCV) 2009 ZOSTER VACCINES (1 of 2) 2009 INFLUENZA VACCINE (#1) 2025 COVID-19 VACCINE (1 - 2023-2 5 season) 2025 RSV VACCINE (1 - 1-dose 75+ series) 2034 HEPATITIS A VACCINES Aged Out No long er eligible based on patient's age to complete this topic HIB VACCINES Aged Out No longer eligi ble based on patient's age to complete this topic MENINGOCOCCAL VACCINES (ACWY) Aged Out No longer eligible based on patient's age to complete this topic MENINGOCOCCAL VACCINES (B) Aged Out N o longer eligible based on patient's age to complete this topic Medical Devices Not on file Insurance MEDICARE PART A & B [id number] MEDEX SUPPLEMENT MEDICARE PART A & B Sp[employer]edly MEDEX SUPPLEMENT MEDICARE PART A & B [employer] MEDEX SUPPLEMENT MEDICARE PART A & B [employer] MEDEX SUPPLEMENT MEDICARE PART A & B [employer] MEDEX SUPPLEMENT MEDICARE PART A & B [employer] MEDEX SUPPLEMENT Care Teams Medical Manager Relationship Specialty Start Date End Date Sukhwinder Block DO [address] [place] [address] [email or web address] PCP - General Internal Medicine 03/12/25 Additional Source Comments The information contained in this document represents components of the legal health record. It is not the complete legal health record.[facility]
--- OUTSIDE RECORDS SUMMARY | 2025-03-30 16:35 | XMS_ITS | Patient Health Record ---
Author Organization [facility] Address [address] [place] [address] Care Team Providers Care Soils Analyst Name Role Phone Umair JAMIL, Sukhwinder Primary Care Provider Tierra Quevedo Unavailable [phone] Allergies No Known Allergies Results Component Value Reference Range Notes HEMOGLOBIN A1C (GLYCOHEMOGLO BIN) Reviewed date:08/26/2024 03:11:15 PM Interpretation: Performing Lab: Notes/Report: HEMOGLOBIN A1C % (HH) 5.9 HEMOGLOBIN A1C (GLYCOHEMOGLO BIN) Reviewed date:11/25/2024 01:49:33 PM Interpretation: Performing Lab: Notes/Report: HEMOGLOBIN A1C % (HH) 6.2 Reason For Referral No Information Medications Medication SIG (Take, Route, Frequency, Duration) Notes Start Date End Date Status Meloxicam 15 MG 1 tablet Orally Once a day; Duration: 30 day(s) Active glipiZIDE 10 MG 1 tablet 30 minutes before breakfast Orally Once a day Active Terbinafine HCl 250 MG 1 tablet Orally O nce a day; Duration: 90 days 02/01/2023 Not-Takin g Lisinopril 20 MG 1 tablet Orally Once [...] Once a day; Duration: 30 day(s) Active oxyBUTYnin Not-Takin g Bumetanide 2 MG 1 tablet Orally Once a day; Duration: 30 day(s) Active metFORMIN HCl 500 MG 1 tablet with a emily l Orally Once a day; Duration: 30 day(s) Not-Taking Tamsulosin HCl 0.4 MG 1 capsule Orally O nce a day Not-Taking Ciclopirox Olamine 0.77 % 1 application to affected area Externally to feet Twice a day; Duration: 30 days Not-Taking Immunizations Vaccine Route Administration Date Status Comme [...] Problem Status W/U Status Risk Notes Problem Polyneuropathy due to type 2 diabetes mellitus (829532141) Type 2 diabetes mellitus with polyneuropathy (E11.42) Active confirmed Vital Signs Blood pressure diastolic 75 mm Hg 11/25/2024 Height 5ft8in in 11/25/2024 Blood pressure systolic 130 mm Hg 11/25/2024 Weight 335 lbs 11/25/2024 BMI 50.93 kg/m2 11/25/2024 Encounters Encounter Location Date Provider [facility] [address] 04/03/20[place] Tinea unguium B35.1 and Type 2 diabetes mellitus with polyneuropathy E11.[address] [address] 06/16/2024 [place] Tinea unguium B35.1 and Type 2 diabetes mellitus with polyneuropathy E11.[address] [address] 08/26/2024 [place] Tinea unguium B35.1 and Type 2 diabetes mellitus with polyneuropathy E11.42 [facility] [address] [place] [address] 11/25/2024 Tierra Rodriguez Tinea unguium B35.1 and Type 2 diabetes mellitus with polyneuropathy E11.42 [facility] [address] [place] [address] 02/16/2025 Tierra Rodriguez Assessments Encounter Date Diagnosis (ICD Code) Assessment Notes Treatment Notes Treatment Clinical Notes Section Notes 04/03/2024 Tinea unguium (ICD-10 - B35.1) 06/16/2024 Tinea unguium (ICD-10 - B35.1) 08/26/2024 Tinea unguium (ICD-10 - B35.1) 11/25/2024 Tinea unguium (ICD-10 - B35.1) 11/25/2024 Type 2 diabetes mellitus with polyneuropathy (ICD-10 - E11.42) 08/26/2024 Type 2 diabetes mellitus with polyneuropathy (ICD-10 - E11.42) 06/16/2024 Type 2 diabetes mellitus with polyneuropathy (ICD-10 - E11.42) 04/03/2024 Type 2 diabetes mellitus with polyneuropathy (ICD-10 - E11.42) Plan Of Treatment Pending Test Test Name Order Date *Liver Function Test (LFT) 01/29/2023 *Liver Function Test (LFT) 04/09/2023 Next Appt Details Provider Name:Tierra martinez, 05/11/2025 02:30:00 PM, [address] [place], [address], Insurance Providers Payer Name Payer Address Payer Phone Subscriber Number Group Number Insured Name Patient Relationship to Insured Coverage Start Date Coverage End Date Medicare National [employer] [address] [place] [address] [id number] George Guy Self - patient is the insured [employer] [address] [place] [address] [id number] Guy, George Self - patient is the insured Medical (General) History Medical History History ICD Code Arthritis Back,Hip,and Knee pain Broken bones Diabetic Diverticulosis Heart disease High blood pressure Psoriasis/eczema Reflux ( GERD) Warts Measles Chicken pox Surgical History Surgery Date(Month/Year) ankle surgery 03/1979
--- OUTSIDE RECORDS SUMMARY | 2025-03-30 16:35 | XMS_ITS | Clinical Summary ---
Author Organization [facility] Address [address] [place] [address] Care Team Providers Care Regional Account Executive Name Role Phone Unavailable Primary Care Provider [...] of 1 - PCV) 2024 Influenza Vaccine (#1) 2025 RSV Adult > 60+ Yrs or [...]
== END 2025-03-30 14:25 | disposition home or self-care (01) ==
LOC: HO.HCS 13:56
PROVIDERS: PCP Internal Medicine; Visit Provider Internal Medicine
DX: I50.812 Chronic right heart failure (principal); I10 Essential (primary) hypertension; G47.33 Obstructive sleep apnea (adult) (pediatric); Z99.89 Dependence on other enabling machines and devices; E66.01 Morbid (severe) obesity due to excess calories
CPT/HCPCS: 93010; 99214; G2211

== ENCOUNTER → 2025-03-30 13:55 | Outpatient (BNVA) | payer MEDICARE, SELFPAY | PROVIDERS: PCP Internal Medicine; Visit Provider Internal Medicine | DX: I50.812 Chronic right heart failure (principal); I11.0 Hypertensive heart disease with heart failure; G47.33 Obstructive sleep apnea (adult) (pediatric); Z99.89 Dependence on other enabling machines and devices; E66.01 Morbid (severe) obesity due to excess calories; Z68.42 Body mass index [BMI] 45.0-49.9, adult | CPT/HCPCS: 93005; 99212 ==

== ENCOUNTER 2025-04-28 15:13 | Outpatient (REF) | payer MEDICARE, SELFPAY ==
[2025-04-28 16:48] LABS: Anion Gap 13 (12-20); Blood Urea Nitrogen 30 mg/dL (9-16); Calcium 9.3 mg/dL (8.4-10.2); Carbon Dioxide 28 mmol/L (22-29); Chloride 106 mmol/L (96-108); Estimated Glomerular Filt Rate > 60; Potassium 4.0 mmol/L (3.3-5.1); Sodium 143 mmol/L (135-145)
== END 2025-04-28 15:14 | disposition home or self-care (01) ==
LOC: HO.HMGCLDS 15:13
PROVIDERS: PCP Internal Medicine; Visit Provider Internal Medicine
DX: I50.812 Chronic right heart failure (principal)
CPT/HCPCS: 36415; 80048

== ENCOUNTER 2025-05-14 13:36 | Outpatient (REF) | payer MEDICARE, SELFPAY ==
--- OUTSIDE RECORDS SUMMARY | 2025-02-16 09:30 | XMS_ITS ---
Author Organization [facility] [place] Address [address] [place] [address] Care Team Providers Care Projection Printer Name Role Phone Sukhwinder Block MD Primary Care Provider Tierra Quevedo Unavailable [phone] Medications Medication SIG (Take, Route, Frequency, Duration) [...] Active Encounters Encounter Location Date Provider Diagnosis [facility] [address] [address] 02/16/2025 Tierra Rodriguez Plan Of Treatment Next Appt Details Provider Name:Tierra martinez, 07/20/2025 02:30:00 PM, [address] [place], [address], Progress Notes * Dayami GUYOB: 9 (65 yo M)Acc No.[id number]:02/16/2025 Progress Note Patient: George VILLASENOR Provider: Ranjan Rodriguez DPM :1960 A ge:64 Y S ex:Male Date:02/16/2025 Address:[address] [place], [place] [phone] Pcp:Sukhwinder Block MD Subjective: * Chief Complaints: * * HPI: A t Risk footcare: Pt States Last PCP Visit: D ate 0 11/16/2024 * Medical History: * Medications: [...] 02/16/2025 Generated for Gisell morales/Frances/Bryce on: 1 03:35 PM EDT History and Physical Notes * HPI (History of Present Illness) Category Sub-Category Detail Notes Category Not es At Risk footcare Pt States Last PCP Visit: Date: 5
--- OUTSIDE RECORDS SUMMARY | 2025-05-11 10:30 | XMS_ITS ---
Author Organization [facility] [place] Address [address] [place] [address] Care Team Providers Care Forestry Technician Name Role Phone Sukhwinder Block MD Primary Care Provider Tierra Quevedo Unavailable [phone] Allergies No Known Allergies REASON FOR VISIT At Risk Footcare, Painful Nail(s) aggrevated by shoes and causing difficulty standing/walking. Medications Medication SIG (Take, Route, Frequency, Duration) Notes Start Date End Date Status Tamsulosin HCl 0.4 MG 1 capsule Orally O nce a day Not-Taking Terbinafine HCl 250 MG 1 tablet Orally O nce a day; Duration: 90 days 02/01/2023 Not-Takin g oxyBUTYnin Not-Takin g Ciclopirox Olamine 0.77 % 1 application to affected area Externally to feet Twice a day; Duration: 30 days Not-Taking metFORMIN HCl 500 MG 1 tablet with a emily l Orally Once a day; Duration: 30 day(s) Not-Taking Bumetanide 2 MG 1 tablet Orally Once a day; Duration: 30 day(s) Active Lisinopril 20 MG 1 tablet Orally twic e a day; Duration: 30 days Active Metoprolol Succinate 25 MG 1 capsule Orally Once a day; Duration: 30 day(s) Active Extra Depth Orthopedic Shoes (1 Pair) with Customized Heat Molded Multidensity Innersoles (3 Pair) as directed Dx: NIDDM (E11.9), Hammertoe Foot Deformity (M20.41,M20.42), Preulcerative Skin Lesion(s) (L85.1) 04/25/2022 Active Famotidine 40 MG 1 tablet at bedtime Orally twice a day; Duration: 30 days Active Meloxicam 15 MG 1 tablet Orally [...] Are you an other tobacco user? No AUDIT-C (Standard) Question Answer Notes Did you have a drink containing alcohol in the p ast year? No Points 0 Interpretation Negative Vital Signs Height 5ft8in in 05/11/2025 Weight 334 lbs 05/11/2025 BMI 50.78 kg/m2 05/11/2025 Blood pressure systolic 128 mm Hg 05/11/20 25 Blood pressure diastolic 75 mm Hg 025 Encounters Encounter Location Date Provider Diagnosis [facility] [address] [address] 05/11/2025 Tierra Rodriguez Tinea unguium B35.1 and Type 2 diabetes mellitus with polyneuropathy E11.42 Assessments Encounter Date Diagnosis (ICD Code) Assessment Notes Treatment Notes Treatment Clinical Notes Section Notes 05/11/2025 Tinea unguium (ICD-10 - B35.1) 05/11/2025 Type 2 diabetes mellitus with polyneuropathy (ICD-10 - E11.42) Plan Of Treatment Next Appt Details Follow Up: 2 Months, Reason: Provider Name:Tierra martinez, 07/20/2025 02:30:00 PM, [address] [place] [address], [phone], Procedure Notes * Category Sub-Category Detail Notes Debride Nail 6-10 Nail debridement Due to the cl inical pathology outlined in the exam findings, performance of this nail treatment is medically necessary as its management by an unskilled/untrained nonprofessional would put this patients foot and overall health at risk. Therefore, debridement to affected nail(s), as described in exam ( T1, T2, T3, T6, T7, T8 ), was performed exclusively by the physician of record to reduce/remove overall nail length, girth, thickness, subungual debris, and necrotic tissue, by manual and/or electrical means through the use of a nail nipper and/or dremel-type magazine grinder loader, to a more viable healthy nail plate [...] to maintain effectiveness in symptomatic relief - 46145 Keratoma Treatment Parring or Cutting o f Benign Hyperkeratotic Lesion(s) (-57) More than 4 Lesions - Due to the at risk nature of the patients medical condition as documented in the exam findings, performance of this keratoderma treatment is medically necessary as its management by an unskilled/untrained nonprofessional would put this patients foot and overall health at risk. Therefore, the benign hyperkeratotic lesions, (6) in total, locations as stated and described in the exam ( Medial plantar, TA T5 , Lateral, PIPJ, T4, T9, SUB MTH (s), 1, B/L ), were pared, and/or cut utilizing a sterile 15 blade, tissue nippers, and/or power dremel instrumentation by the physician of record - [id number] Progress Notes * Dayami GUYOB: 9 (65 yo M)Acc No.[id number]:05/11/2025 Progress Note Patient: George VILLASENOR Provider: Ranjan Rodriguez DPM :1960 A ge:65 Y S ex:Male Date:05/11/2025 Address:[address] [place], [place] [id number] Pcp:Sukhwinder Block MD Subjective: * Chief Complaints: * A t Risk FootcarePainful Nail(s) aggrevated by shoes and causing difficulty standing/walking. * HPI: A t Risk footcare: Pt States Last PCP Visit: D ate 1 * ROS: G eneral/Constitutional: Nausea d enies. V omiting d enies. H diamond Thirst d enies. L oss appetite d enies. C hills d enies. F atigue d enies.?Fever d enies. N ight Sweats d enies. U nexplained weight loss d enies. U nexplained weight gain d enies. H EENTM: Dentures d enies. D izziness d enies. G lasses/contacts a dmits. R etinopathy d enies. B lurred/double vision d enies. T MJ?denies. D ischarge/drainage d enies. I mplants d enies. S ore throat d enies. D ental implants d enies. H kendra of hearing a dmits. D ifficulty chewing/swallowing/speaking d enies. N ose bleeds d enies. S ore mouth d enies. ? R espiratory: On Oxygen d enies. P neumonia/pleurisy d enies.?Bronchitis d enies. E mphysema d enies. C oughing d enies. C ough blood?denies. S hortness of breath d enies. W heezing a dmits. C ardiovascular: Pacemaker d enies. M TAR DISTILLATION SUPERVISOR d enies. W PW d enies. C HF d enies. H eart attack d enies. S eptal defect d enies. R apid beat d enies. C hest pain d enies. A trial Fib. d enies. M urmur/Palpitations d enies. G astrointestinal: Hemorrhoids a dmits. S tomach/Abdominal pain d enies. D ark blood stool d enies. I rritable bowel d enies. C onstipation a dmits. D iarrhea d enies. H ematology: Swelling a dmits. C lots d enies. V aricose Veins d enies. B ruising d enies. B leeding problem d enies. G enitourinary: Blood urine d enies. F requent/Painfu/urination/bladder control d enies. K idney stones d enies. I nfection (UTI) d enies. N ephropathy d enies. s ex trans dis (STD) d enies. P rostate d enies. M usculoskeletal: Hammertoes a dmits. B unions d enies. B ack Pain a dmits. M uscle Cramps/ Resting a dmits. M uscle cramps / walking d enies.?Generalized aches and pains a dmits. W eakness d enies. I nteg.: Trotter d enies. S cars d enies. C orns/calluses?admits. I ngrown nails d enies. P ainful nails d enies. O pen Sores d enies. R ashes d enies. N eurologic: Difficulty sleeping d enies. B rain disorder d enies. N umbness d enies. B alance trouble d enies. C onfusion d enies. F ainting/blackouts d enies. T ingling d enies. T remors d enies. * Medical History: * Surgical History: a nkle surgery 03/1979 * Hospitalization/Major Diagno stic Procedure: D enies Past Hospitalization * Family History: M other: , Cancer, foot problems, diagnosed with Other malignant neoplasm of unspecified site, Other specified conditions influencing health status. F ather: . S iblings: , Brother- Cancer, diagnosed with Other malignant neoplasm of unspecified site, Unspecified essential hypertension. * Social History: T obacco Use: T obacco Use/Smoking A re you a: n onsmoker A dditional Findings: Tobacco Non-User C urrent non-smoker Tobacco use other than smoking A re you an other tobacco user? N o M iscellaneous: C affeine: yes, frequency:, 1-2 cups per day. Children: yes. Exercise: no. Marital status: . Occupation: Disabled. D rug/Alcohol: A DAMIAN-C (Standard) D id you have a drink containing alcohol in the past year? N o P oints 0 I nterpretation N egative * Medications: T akingglipiZIDE 10 MG Tablet 1 tablet 30 minutes before breakfast Orally Once a day Meloxicam 15 MG Tablet 1 tablet Orally Once a day Metoprolol Succinate 25 MG Capsule ER 24 Hour Sprinkle 1 capsule Orally Once a day Lisinopril 20 MG Tablet 1 tablet Orally twice a day Famotidine 40 MG Tablet 1 tablet at bedtime Orally twice a day Extra Depth Orthopedic Shoes (1 [...] Lisinopril 20 MG Tablet 1 tablet Orally twice a day Taking Famotidine 40 MG Tablet 1 tablet at bedtime Orally twice a day Taking Extra Depth Orthopedic Shoes [...] reviewed and reconciled with the patient * Allergies: N .K.D.A.yes[Allergies Verified] Objective: * Vitals: H t: 5ft8in, Wt:334, BMI:50.78, Shoe size: 10.5, BP:128/75mm Hg, BS: 124, Ht-cm: 172.72 cm, Wt-k.5 kg. * P ast Orders: L ab:HEMOGLOBIN A1C (GLYCOHEMOGLOBIN) (Order Date - 11/16/2024) (Collection Date & Time - 11/16/2024 01:48 PM) Value Reference Range HEMOGLOBIN A1C % (HH) 6.2 * Examination: O phthalmology Referral: DIABETES EYE EXAM P rocedure Performed: Y es D ate of Exam Performed 1 08/22/2023 F indings of Diabetic Eye Exam: n o retinopathy N ails: NAILS are: E longated, overgrown, dystrophic, lytic, greater than 3mm thick, discolored and friable with crumbly malodorous subungual debris, with pain on palpation, TA, T1, T2, T3, T4, T5, T6, T7, T8, T9. D ermatologic: SKIN FINDINGS: S kin exam reveals Keratotic lesion(s) located at Medial plantar, TA T5 , Lateral, PIPJ, T4, T9, SUB MTH (s), 1, B/L. N eurological: SENSORY: N eurological exam demonstrates , reduced light touch sensation , reduced sharp/dull pin prick discrimination , reduced vibration sensation , reduced proprioception sensation , in a stocking fashion , plantar aspects , 5.07 monofilament test performed at plantar aspects of 5 varied sites per foot shows sensation , absent , at Forefoot , B/L. ? V ascular: DP PULSES (B): 2 /4, B/L. PT PULSES (B): 0 /4, B/L. CAPILLARY FILL TIME: 3 secs. per digit, B/L. TROPHIC CONDITION-TEXTURE/ELASTICITY/TURGOR/HAIR GROWTH (B):?sparce hair growth. TEMPERTURE GRADIENT (C): d ecreased, cool to cool, proximal to distal, B/L. PIGMENTATION: p yaniv, B/L. EDEMA (C): 2 /4 , B/L. Assessment: * Assessment: 1. T inea unguium - B35.1 2 . T ype 2 diabetes mellitus with polyneuropathy - E11.42 (Primary) Plan: * Treatment: * Procedures: D ebride Nail 6-10: Nail debridement D ue to the clinical pathology outlined in the exam findings, performance of this nail treatment is medically necessary as its management by an unskilled/untrained nonprofessional would put this patients foot and overall health at risk. Therefore, debridement to affected nail(s), as described in exam ( T1, T2, T3, T6, T7, T8 ), was performed exclusively by the physician of record to reduce/remove overall nail length, girth, thickness, subungual debris, and necrotic tissue, by manual and/or electrical means through the use of a nail nipper and/or dremel-type magazine grinder loader, to a more viable healthy nail plate [...] to maintain effectiveness in symptomatic relief - 04402. K eratoma Treatment: Parring or Cutting of Benign Hyperkeratotic Lesion(s) ( -57) More than 4 Lesions - Due to the at risk nature of the patients medical condition as documented in the exam findings, performance of this keratoderma treatment is medically necessary as its management by an unskilled/untrained nonprofessional would put this patients foot and overall health at risk. Therefore, the benign hyperkeratotic lesions, (6) in total, locations as stated and described in the exam ( Medial plantar, TA T5 , Lateral, PIPJ, T4, T9, SUB MTH (s), 1, B/L ), were pared, and/or cut utilizing a sterile 15 blade, tissue nippers, and/or power dremel instrumentation by the physician of record - 37114. * Procedure Codes: 1 1721 DEBRIDE NAIL, 6 OR MORE, Modifiers: XS 80801 TRIM SKIN LESIONS, OVER 4, Modifiers: XS * Follow Up: 2 Months * Images: * Sign off status: Completed true * Provider: Ranjan Rodriguez, DPTed Date: Generated for Gisell morales/Frances/Bryce on: 03:35 PM EDT History and Physical Notes * HPI (History of Present Illness) Category Sub-Category Detail Notes Category Not es At Risk footcare Pt States Last PCP Visit: Date: 5 Examination Category Sub-Category Detail Notes Category Not [...] exam reveal s Keratotic lesion(s) located at Medial plantar, TA T5 , Lateral, PIPJ, T4, T9, SUB MTH (s), 1, B/L Ophthalmology Referral DIABETES EYE EXAM Procedu re Performed:: Yes Date of Exam Performed: 06/21/2024 Findings of Diabetic Eye Exam:: no retin [...] crumbly malodorous subungual debris, with pain on palpation, TA, T1, T2, T3, T4, T5, T6, T7, T8, T9
--- OUTSIDE RECORDS SUMMARY | 2025-05-14 15:35 | XMS_ITS | Patient Health Record ---
[facility] Address [address] [place] [address] Care Team Providers Care Tour Narrator Name Role Phone mUair JAMIL, Sukhwinder Primary Care Provider Tierra Quevedo Unavailable [phone] Allergies No Known Allergies Results Component Value [...] days 02/01/2023 Not-Takin g oxyBUTYnin Not-Takin g Bumetanide 2 MG 1 tablet Orally Once a day; Duration: 30 day(s) Active Ciclopirox Olamine 0.77 % 1 application to affected area Externally to feet Twice a day; Duration: 30 days Not-Taking metFORMIN HCl 500 MG 1 tablet with a emily l Orally Once a day; Duration: 30 day(s) Not-Taking Lisinopril 20 MG 1 tablet Orally twic [...] twice a day; Duration: 30 days Active Immunizations Vaccine Route Administration Date Status Comme nts Influenza Unknown 04/23/2022 Administered Influenza Unknown 05/22/2023 Administered Influenza Unknown 05/22/2024 Administered Social History Tobacco Use: Social History [...] ast year? No Points 0 Interpretation Negative Problems Problem Type SNOMED Code ICD Code Onset Dates Problem Status W/U Status Risk Notes Problem Polyneuropathy due to type 2 diabetes mellitus (924386098) Type 2 diabetes mellitus with polyneuropathy (E11.42) Active confirmed Vital Signs Blood pressure diastolic 75 mm Hg 05/11/2025 Height 5ft8in in 05/11/2025 Blood pressure systolic 128 mm Hg 05/11/2025 Weight 334 lbs 05/11/2025 BMI 50.78 kg/m2 05/11/2025 Encounters Encounter Location Date Provider Diagnosis [address] [address] 06/16/2024 Tierra Perica Tinea unguium B35.1 and Type 2 diabetes mellitus with polyneuropathy E11.[address] [address] 08/26/2024 Tierra Perica Tinea unguium B35.1 and Type 2 diabetes mellitus with polyneuropathy E11.[address] [facility] [address] 11/25/2024 Tierra Rodriguez Tinea unguium B35.1 and Type 2 diabetes mellitus with polyneuropathy E11.[address] [address] 05/11/2025 Tierra Wernera Tinea unguium B35.1 and Type 2 diabetes mellitus with polyneuropathy E11.[address] [address] 02/16/2025 Tierra Wernera Assessments Encounter Date Diagnosis (ICD Code) Assessment Notes Treatment Notes Treatment Clinical Notes Section Notes 06/16/2024 Tinea unguium (ICD-10 - B35.1) 08/26/2024 Tinea unguium (ICD-10 - B35.1) 11/25/2024 Tinea unguium (ICD-10 - B35.1) 05/11/2025 Tinea unguium (ICD-10 - B35.1) 05/11/2025 Type 2 diabetes mellitus with polyneuropathy (ICD-10 - E11.42) 11/25/2024 Type 2 diabetes mellitus with polyneuropathy (ICD-10 - E11.42) 08/26/2024 Type 2 diabetes mellitus with polyneuropathy (ICD-10 - E11.42) 06/16/2024 Type 2 diabetes mellitus with polyneuropathy (ICD-10 - E11.42) Plan Of Treatment Pending Test Test Name Order Date *Liver Function Test (LFT) 01/29/2023 *Liver Function Test (LFT) 04/09/2023 Next Appt Details Provider Name:Tierra martinez, 07/20/2025 02:30:00 PM, [address] [place] [address], [phone], Insurance Providers Payer Name Payer Address Payer Phone Subscriber Number Group Number Insured Name Patient Relationship to Insured Coverage Start Date Coverage End Date Medicare National [employer] [address] [place] [address] [id number] George Guy Self - patient is the insured [employer] [facility] [address] [place] [address] [phone] [id number] George Guy Self - patient is the insured Medical (General) History Medical History History ICD Code Arthritis Back,Hip,and Knee pain Broken bones Diabetic Diverticulosis Heart disease High blood pressure Psoriasis/eczema Reflux ( GERD) Warts Measles Chicken pox Surgical History Surgery Date(Month/Year) ankle surgery 03/1979
--- OUTSIDE RECORDS SUMMARY | 2025-05-14 15:35 | XMS_ITS | Encounter Summary ---
Author Organization [facility] Address [address] [place] [address] Phone Care Team Providers Care Utility Forester Name Role Phone Sukhwinder Block Primary Care Provider [phone] Reason for Visit * Reason Onset Date Comments referral 03/12/2025 Encounter Details Date Type Department Care Team ([facility] st Contact Info) Description 03/12/2025 Telephone [facility] Pulmonary, Allergy and Critical Care Medicine [address], [place] [id number] Sandy Wharton referral Social History Tobacco Use [...] referral. Please contact and advise. Central Support Certification And Selection Specialist (Please do not reply to this user; this inbox is not monitored.) Thank you. documented in this encounter Plan of Treatment Upcoming Encounters Date Type Department Care Team (Late st Contact Info) Description 11/25/2025 2:00 PM EDT Office Visit [facility] [address] [place] [phone] Sun Triplett MD [address] [place] [phone] [email or web address] documented as of this encounter Visit Diagnoses Not on filedocumented in this encounter Care Teams Utility Forester Relationship Specialty Start Date End Date Sukhwinder Block DO [address] [place] [phone] PCP - General Internal Medicine 03/12/25 documented as of this encounter Additional Source Comments The information contained in this document represents components of the legal health record. It is not the complete legal health record.[facility]
--- OUTSIDE RECORDS SUMMARY | 2025-05-14 15:36 | XMS_ITS | Patient Health Record ---
Author Organization [facility] Address [address] [place] [address] Care Team Providers Care Vocational Director Name Role Phone Umair Sukhwinder Primary Care Provider Minh Nguyen [phone] Allergies No Known Allergies Reason For Referral No Information Medications Medication SIG (Take, Route, Frequency, Duration) Notes Start Date End Date Status Famotidine 40 MG TAKE 1 TABLET BY CORNELIA TH TWICE A DAY NEEDED Oral Twice a day Active Bumetanide 2 MG TAKE 1 TABLET BY CORNELIA TH TWICE A DAY Oral; Duration: 90 Active Preparation H 0.25-88.44 % 1 Rectal Twic e a day--use once in AM and once QHS for 1 week, and then prn for rectal pain or bleeding; Duration: 30 days 02/18/2020 Active Turmeric 500 MG [...] Problem Status W/U Status Risk Notes Problem Gastroesophageal reflux disease (317811875) Gastroesophageal reflux disease, esophagitis presence not specified (K21.9) Active confirmed Problem Hemorrhage of rectum and anus (213417255) Rectal bleed (K62.5) Active confirmed Problem Rectal pain (03454254) Rectal pain (K62.89) Active confirmed Problem Constipation (40763572) Constipation, unspecified constipation type (K59.00) Active confirmed Plan Of Treatment Future Test Test Name Order Date COLONOSCOPY 11/12/2012 UPPER GI ENDOSCOPY 08/25/2019 COLONOSCOPY 08/25/2019 Insurance Providers Payer Name Payer Address Payer Phone Subscriber Number Group Number Insured Name Patient Relationship to Insured Coverage Start Date Coverage End Date [employer] [address] [place] [address] [id number] LOPEZSCARLETT BOOTHE Self - patient is the insured Medical (General) History Medical History History ICD Code Arthritis in his knees Denies [place],DM,CVA,Lung disease,renal dise ase Sleep apnea-uses a CPAP machine Neg screening colonoscopy in 01/2013 except diverticulosis and minimal internal hemorrhoids GERD-EGD 10/2019 Moderate-siz ed HH, small area of Edgar's without dysplasia; no esophagitis LE edema Neg. colonoscopy in 10/2019 except product managent intern al hemorrhoids Surgical History Surgery Date(Month/Year) Ankle surgery RIGHT Hydrocele repair 2017
--- OUTSIDE RECORDS SUMMARY | 2025-05-14 15:36 | XMS_ITS | Continuity of Care Document ---
Author Organization [facility], [facility] Address [address] [place] [address] [place] [address] Assessment No assessment recorded. Plan of Treatment Reminders Order Date Submit Date Provider Last Modified By Organization Details Last Modified Time Details Appointments FOLLOW UP 15 2025 02:30P M JANETTE DE SOUZA Not available Not available Not available Lab PSA, serum or plasma 2024 025 [facility], [address] [place] [address], [id number], 05/10/2025 14:41:02 hemoglobi n A1c, QN, blood 2024 025 [facility], [address] [place] [address], [place], [id number], 05/10/2025 14:41:02 urinalysi s complete, reflex culture 2024 025 [facility], [address] [place] [address], [id number], 05/10/2025 14:41:03 Referral None recorded. Procedures None recorded. Surgeries None recorded. Imaging None recorded. Medication Orders None recorded. Patient TargetsNo targets recorded. Patient InstructionsNo instructions recorded. Reason for Referral None Reported. Results Created Date Observation Date Name Description Value Unit Range Abnormal Flag Note LastModifiedBy Organization Detail LastModifiedTime Result Notes None recorded. Problems Name Problem SNOMED Code Status Onset Date Resolution Date Notes Provider Name and Address Organization Details Recorded Time Essential hypertens ion 63107512 Active 2017 Not Available [facility] 2 19:53:19 Morbid obesity 444245804 Active 2017 Not Available [facility] 2 19:53:19 Sleep apnea 84658212 Active 2017 Not Available [facility] 2 19:53:19 Gastric reflux 951222487 Active 2017 Not Available [facility] 2 19:53:19 Osteoarth ritis 276204100 Active 2017 knees Not Available [facility] 2 19:53:19 Edema of lower extremity 371401880 Active 2019 Not Available [facility] 2 19:53:19 Venous stasis 15371001 Active 2019 Not Available [facility] 2 19:53:19 Gastroeso phageal reflux disease 560061215 Active 2019 Not Available [facility] 2 19:53:19 Type 2 diabetes mellitus 26969873 Active 2021 Not Available [facility] 2 19:53:19 Chronic systolic heart failure 784752512 Active 2021 Not Available [facility] 2 19:53:19 Productiv e cough 31308353 Active 2021 Not Available [facility] 2 19:53:19 Pain in bilateral feet 090915352641 65217 Active 2021 Not Available [facility] 2 19:53:19 Pain of left shoulder joint 709795564613 55819 Active 2022 JANETTE DE SOUZA [address] [place] [address], [address], [facility] 3 10:47:08 Tendiniti s of left shoulder 589709897368 9103 Active 2022 Sukhwinder Block DO [address] [place], [address], [facility] 3 16:49:31 Benign prostatic hyperplas ia 738059604 Active 2022 JANETTE DE SOUZA [address] [place] [address], [address], [facility] 3 15:57:46 Increased frequency of urination 814470743 Active 2023 JANETTE DE SOUZA [address] [place], [address], [facility] 5 14:40:58 Congestiv e heart failure 36376841 Active 2023 JANETTE DE SOUZA [address] [place] [address], [address], [facility] 4 14:40:27 Psoriasis 8528546 Active 2023 JANETTE DE SOUZA [address] [place] [address], [address], [facility] 4 14:40:55 Bilateral tinnitus 300656932182 2 Active 2023 JANETTE DE SOUZA [address] [place] [address], [address], [facility] 4 14:33:04 Bilateral hearing loss 28652764 Active 2023 JANETTE DE SOUZA [address] [place] [address], [address], [facility] 4 12:24:34 Bilateral hearing loss 54681299 Active 2023 JANETTE DE SOUZA [address] [place] [address], [address], [facility] 4 12:26:44 Acute kidney injury 65694064 Active 2023 JANETTE DE SOUZA [address] [place] [address], [address], [facility] 4 13:43:42 Purpuric rash 330030751 Active 2024 JANETTE DE SOUZA [address] [place] [address], [address], [facility] 5 14:48:16 Pain of knee region 2463302207 Active 2024 JANETTE DE SOUZA [address] [place], [address], [facility] 5 14:50:26 Hypoglyce nahomy due to type 2 diabetes mellitus 846786563998 103 Active 2024 JANETTE DE SOUZA [address] [place], [address], [facility] 5 14:54:23 Pigmented skin lesion 962334927 Active 2024 JANETTE DE SOUZA [address] [place], [address], [facility] 5 08:49:03 Nocturia 252519288 Active 2024 JANETTE DE SOUZA [address] [place], [address], [facility] 5 14:38:51 Problem Notes None recorded. Procedures Surgical History Date Name Laterality Status Provider Name and Address Organization Details Recorded Time 023 Corticosteroid Injection completed Sukhwinder Block DO [address] [place], [address], [facility] 10/01/2022 16:48:57 Imaging Results None recorded. Procedure Notes None recorded. Medical Equipment None Reported. Allergies No known drug allergies Medications Name Sig Start Date Stop Date Status Note LastModified by Organization Details LastModified Time cyclobenzap rine 10 mg tablet TAKE 1 TABLET BY MOUTH 3 TIMES A DAY FOR 15 DAYS 09/13 completed Not Available Not Available Not Available furosemide 40 mg tablet 1 1/2 tablets po daily 02/27 completed Not Available Not Available Not Available bumetanide 2 mg tablet TAKE 1 TABLET BY MOUTH TWICE A DAY active Not Available Not Available No t Available oxybutynin chloride ER 10 mg tablet,exte nded release 24 hr TAKE 1 TABLET BY MOUTH EVERY DAY FOR 30 DAYS active Not Available Not Available No t Available azithromyci n 250 mg tablet TAKE 2 TABLETS BY MOUTH TODAY, THEN TAKE 1 TABLET DAILY FOR 4 DAYS 03/07 completed Not Available Not Available Not Available benzonatate 200 mg capsule Take 1 capsule 3 times a day by oral route as needed for 14 days. 03/07 completed Not Available Not Available Not Available Claritin 10 mg tablet Take 1 tablet every day by oral route. 05/11 completed Not Available Not Available Not Available glipizide ER 10 mg tablet, extended release 24 hr TAKE 1 TABLET BY MOUTH EVERY DAY DIRECTED active Not Available Not Available No t Available meloxicam 15 mg tablet TAKE 1 TABLET BY MOUTH ONCE A DAY. active Not Available Not Available No t Available lisinopril 20 mg tablet TAKE 2 TABLETS BY MOUTH EVERY DAY active Not Available Not Available No t Available famotidine 40 mg tablet TAKE 1 TABLET BY MOUTH TWICE A DAY active Not Available Not Available No t Available glipizide ER 5 mg tablet, extended release 24 hr TAKE 1 TABLET BY MOUTH EVERY DAY 04/22 completed Not Available Not Available Not Available nizatidine 300 mg capsule Please specify direction s, refills and quantity 03/11 completed Not Available Not Available Not Available ciprofloxac in 500 mg tablet Take 1 tablet every 12 hours by oral route for 7 days. 08/03 completed Not Available Not Available Not Available sulfamethox azole 800 mg-trimetho prim 160 mg tablet Take 1 tablet every 12 hours by oral route. 12/31 completed Not Available Not Available Not Available tramadol 50 mg tablet TAKE 1 TABLET BY MOUTH EVERY 6 HOURS FOR 7 DAYS 12/05 completed Not Available Not Available Not Available triamcinolo ne acetonide 0.1 % topical cream APPLY THIN COAT TO AFFECTED AREA TWICE A DAY TOPICALLY 02/09 completed Not Available Not Available Not Available oxycodone-a cetaminophe n 5 mg-325 mg tablet 01/28 completed Not Available Not Available Not Available terbinafine HCl 250 mg tablet TAKE 1 TABLET BY MOUTH EVERY DAY FOR 90 DAYS 06/17 completed Not Available Not Available Not Available famotidine 20 mg tablet Take 1 tablet twice a day by oral route for 90 days. 08/03 completed Not Available Not Available Not Available tamsulosin 0.4 mg capsule TAKE 1 CAPSULE BY MOUTH EVERY DAY 09/26 completed Not Available Not Available Not Available furosemide 80 mg tablet TAKE 1 TABLET BY MOUTH EVERY DAY 05/11 completed Not Available Not Available Not Available amlodipine 10 mg tablet TAKE 1 TABLET BY MOUTH EVERY DAY 06/09 completed Not Available Not Available Not Available ranitidine 150 mg tablet Take 2 tablets every day by oral route for 90 days. 06/09 completed Not Available Not Available Not Available betamethaso ne dipropionat e 0.05 % topical cream APPLY A THIN LAYER TO THE AFFECTED AREA(S) BY TOPICAL ROUTE ONCE DAILY active Not Available Not Available No t Available docusate sodium 100 mg capsule TAKE 1 CAPSULE(S ) TWICE A DAY BY ORAL ROUTE NEEDED FOR 14 DAYS. 03/14 completed Not Available Not Available Not Available oxybutynin chloride ER 5 mg tablet,exte nded release 24 hr TAKE 1 TABLET BY MOUTH EVERY DAY FOR 30 DAYS 02/09 completed Not Available Not Available Not Available diclofenac sodium 75 mg tablet,faye yed release TAKE 1 TABLET BY MOUTH TWICE A DAY WITH MEALS FOR 15 DAYS 09/13 completed Not Available Not Available Not Available hydrochloro thiazide 25 mg tablet 1 tab daily 12/31 completed Not Available Not Available Not Available furosemide 20 mg tablet alternate 1 tab with 2 tabs every other day 04/04 completed Not Available Not Available Not Available metoprolol succinate ER 25 mg tablet,exte nded release 24 hr TAKE 1 TABLET BY MOUTH EVERY DAY active Not Available Not Available No t Available metformin ER 500 mg tablet,exte nded release 24 hr TAKE 1 TABLET BY MOUTH TWICE A DAY 04/22 completed Not Available Not Available Not Available ciclopirox 0.77 % topical cream APPLY TO AFFECTED AREA ON FEET TWICE A DAY FOR 30 DAYS 12/04 completed Not Available Not Available Not Available multivitami n 08/03 completed Not Available Not Available Not Available Lantus Solostar U-100 Insulin 100 unit/mL (3 mL) subcutaneou s pen INJECT 3 UNITS EVERY DAY BY SUBCUTANE OUS ROUTE DIRECTED FOR 30 DAYS. 04/22 completed Not Available Not Available Not Available glucosamine 467 mg-chondroi tin msm no.6 438 mg-manganes 0.7 mg capsule Take by oral route. 02/27 completed Not Available Not Available Not Available Proctosol HC 2.5 % topical cream perineal applicator APPLY A THIN LAYER TO AFFECTED AREA 2 TO 4 TIMES A DAY 07/25 completed Not Available Not Available Not Available Flucelvax Quad (PF) 60 mcg (15 mcg x 4)/0.5 mL IM syringe ADM 0.5ML IM UTD 09/13 completed Not Available Not Available Not Available FreeStyle Mei 3 Sensor device Use as directed 2023 active Not Available Not Available Not Avai lable FreeStyle Mei 3 [place] Please use as directed. 03/11 completed Not Available Not Available Not Available Vitals Date Recorded Body height Body mass index (BMI) Body weight Heart rate Oxygen saturation Oxygen saturation in Arterial blood by Pulse oximetry Systolic And Diastolic Provider Name and Address Organization Details Last Updated DateTime 172.72 cm 51.5 kg/m2 397890. 81 g 70 /min 98 % 98 % 120/70 mm[Hg] [facility] 14:18:27 Social History Question Answer Notes LastModified by Organizat ion Details LastModified Time Tobacco Smoking Status Never Smoker Not Available [facility] 05/24/2020 03:36:23 What Was The Date Of Your Most Recent Tobacco Screening? 05/10/2025 [email or web address] Information not available 05/10/2025 Sex: Unknown Functional Status Question Answer Note LastModified by Organization D etails LastModified Time Do you or have you ever used any other forms of tobacco or nicotine? No [email or web address] Information not available 06/17/2023 Mental Status None recorded. Family History Nothing Reported. Medical History Condition Response Coronary Artery Disease N Gout N Other N Kidney Stones N Blood Diseases N Blood Transfusion N Breast Cancer N Lung Disease N Depression N COPD N Defects or Inherited Disease N Anxiety Disorder N Muscle, Joint, or Bone Problems N Obesity N Vision or Eye Problems N Arthritis N Infertility N Polyps N Mental Disorder N Cancer N Stroke N Varicosities N Endometriosis N Bladder or Kidney Problems N High Cholesterol N Liver Disease N Fibromyalgia N Headaches N Kidney Disease N Allergies/Hayfever N Heart Problems N Hospitalizations N Thyroid Problems N GI Problems N Eating Disorder N Skin Problems N Anemia N MRSA exposure N Constipation N Mental Illness N Diabetes N Ovarian Cancer N Seizures/Epilepsy N Tuberculosis N Congestive Heart Failure (CHF) N Eczema N Abuse/Domestic Violence N Diverticulitis N Asthma N Reflux/GERD N Hepatitis N Heart Disease N Pulmonary Embolism N Hypertension N Chicken Pox N Autism Spectrum Disorder (ASD) N Osteoporosis N Immunizations Vaccine Type Date Status Note Provider Nam e and Address Organization Details Recorded Time COVID-19, mRNA, LNP-S, PF, 30 mcg/0.3 mL dose 1 completed Not Available [facility] 05/09/2022 19:53:19 COVID-19, mRNA, LNP-S, PF, 30 mcg/0.3 mL dose 1 completed Not Available [facility] 05/09/2022 19:53:19 influenza, unspecified formulation 2 completed Blanca torres [facility] 06/12/2022 10:14:37 COVID-19, mRNA, LNP-S, PF, 30 mcg/0.3 mL dose 2 completed Blanca torres [facility] 06/12/2022 10:14:56 Influenza, split virus, quadrivalent, preservative 8 completed Not Available [facility] 05/09/2022 19:53:19 tetanus toxoid, unspecified formulation 3 completed Not Available [facility] 05/09/2022 19:53:19 Influenza, split virus, quadrivalent, preservative 9 completed Not Available [facility] 05/09/2022 19:53:19 Past Encounters Encounter ID Performer Location Encounter Start Date Encounter Closed Date Diagnosis/Indication Diagnosis SNOMED-CT Code Diagnosis ICD10 Code Diagnosis IMO Codes Diagnosis Note [id number] Sukhwinder Block [facility] [address] [place] [address] 05/10/2025 14:09:38 05/10/2025 14:47:28 Depression screening 278011782 Z13.31 0 Nocturia 399035188 R35.1 76768 will switch out to higher dose of the medication Increased frequency of urination 558490729 R35.0 16149 will switch out to higher dose of the medication Health Concerns Section Related Observation LastModified by Organization Detai ls LastModified Time None Recorded Concern Status LastModified by Organization Details LastModified Time None Recorded Payers Encounter Date Sequence Insurance Name Policy Number Policy Nation Covered Member ID Nation Member ID Guarantor Name 05/10/2025 2 [place] [id number] George Guy [id number] George Guy 05/10/2025 1 [place] [facility] George Guy [id number] George Guy Notes Date Note Type Note Provider Name and Address Organization Details Recorded Time 5 text/htm l ROS as noted in the HPI 3 mos fu the patient is having increased urinary symptomsthe patient is on the diuretic, only the once a day due to the amount of urinatingrecommended every other day vs half a tablet the patient reports that he goes to the bathroom night, at least 3 to 4 timescan't count how much during the day recommeded this adjustment, and also setting up for blood work and urine to check for other problems JANETTE DE SOUZA [address] [place] [address], [place], [address], [facility] 05/10/2025 14:47:01
--- OUTSIDE RECORDS SUMMARY | 2025-05-14 15:36 | XMS_ITS | Clinical Summary ---
Author Organization [facility] Address [address] [place] [address] Care Team Providers Care Cash Poster Name Role Phone Unavailable Primary Care Provider [...]
--- OUTSIDE RECORDS SUMMARY | 2025-05-14 15:36 | XMS_ITS | Clinical Summary ---
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 Phone Sukhwinder Block Primary Care Provider Encounters Date Type Department Care Team Description 03/12/2025 Transcribe Orders [facility] Endocrinology [address] [place] [address] [place] [address] Dolores Taveras PA Type 2 diabetes mellitus with hypoglycemia without coma, without long-term current use of insulin (Primary Dx) 03/12/2025 Telephone [facility] [address] [place], [place] [id number] Sandy Wharton referral from Last 3 Months [...] Upcoming Encounters Date Type Department Care Team ([facility] Contact Info) Description 11/25/2025 2:00 PM EDT Office Visit [facility] [address] [place] [address] [place] [address] Sun Triplett MD [address] [address] [email or web address] Maintenance Due Date Last Done Comments Adult Td,Tdap Booster 1959 LIPID PANEL 1959 DEPRESSION SCREENING 1971 SMOKING Hx and SMOKELESS TOB ACCO SCREENING 1972 HEPATITIS C SCREENING 1977 COLOGUARD 2004 COLONOSCOPY 2004 COLORECTAL CANCER SCREENING 2004 FIT TEST 2004 FOBT 2004 SIGMOIDOSCOPY 2004 VIRTUAL COLONOSCOPY 2004 PNEUMOCOCCAL VACCINES (50+ y ears) (1 of 1 - PCV) 2009 ZOSTER VACCINES (1 of 2) 2009 INFLUENZA VACCINE (#1) 2025 COVID-19 VACCINE ( - 2024-2 6 season) 2025 RSV VACCINE (1 - 1-dose [...] file Insurance MEDICARE PART A & B [employer] SUPPLEMENT MEDICARE PART A & B [employer] SUPPLEMENT MEDICARE PART A & B [employer] SUPPLEMENT MEDICARE PART A & B [employer] SUPPLEMENT MEDICARE PART A & B [employer] MEDEX SUPPLEMENT MEDICARE PART A & B [employer] MEDEX SUPPLEMENT Care Teams Ornamental Iron Worker Helper Relationship Specialty Start Date End Date Sukhwinder Block DO [address] [place] [address] [email or web address] PCP - General Internal Medicine 03/12/25 Additional Source Comments The information contained in this document represents components of the legal health record. It is not the complete legal health record.[facility]
--- OUTSIDE RECORDS SUMMARY | 2025-05-14 15:36 | XMS_ITS | Data Portability ---
Author Organization [facility], Telehealth Patient Home Address [address] [place] [address] Assessment No assessment recorded. Plan of Treatment Reminders Order Date Submit Date Provider Last Modified By Organization Details Last Modified Time Details Appointments FOLLOW UP 15 2025 02:30P M JANETTE DE SOUZA Not available Not available Not available Lab PSA, serum or plasma 2024 025 [facility], [address] [place] [address], [id number], 05/10/2025 14:41:02 hemoglobi n A1c, QN, blood 2024 025 [facility], [address] [place] [address], [place], [address], 05/10/2025 14:41:02 urinalysi s complete, reflex culture 2024 025 [facility], [address] [place] [address], [place], [address], 05/10/2025 14:41:03 Referral None recorded. Procedures None recorded. Surgeries None recorded. Imaging None recorded. Medication Orders glipizide ER 10 mg tablet, extended release 24 hr 2023 024 [id number], [address] [place], [address], 04/22/2024 14:50:50 Patient TargetsNo targets recorded. Patient InstructionsNo instructions recorded. Reason for Referral None Reported. Results Created Date Observation Date Name Description Value Unit Range Abnormal Flag Note LastModifiedBy Organization Detail LastModifiedTime Result Notes None recorded. Problems Name Problem SNOMED Code Status Onset Date Resolution Date Notes Provider Name and Address Organization Details Recorded Time Essential hypertens ion 85900738 Active 2017 Not Available [facility] 2 19:53:19 Morbid obesity 298070253 Active 2017 Not Available [facility] 2 19:53:19 Sleep apnea 68781794 Active 2017 Not Available [facility] 2 19:53:19 Gastric reflux 789043349 Active 2017 Not Available [facility] 2 19:53:19 Osteoarth ritis 448637171 Active 2017 knees Not Available [facility] 2 19:53:19 Edema of lower extremity 014758444 Active 2019 Not Available [facility] 2 19:53:19 Venous stasis 90877641 Active 2019 Not Available [facility] 2 19:53:19 Gastroeso phageal reflux disease 639447604 Active 2019 Not Available [facility] 2 19:53:19 Type 2 diabetes mellitus 76527148 Active 2021 Not Available [facility] 2 19:53:19 Chronic systolic heart failure 192462056 Active 2021 Not Available [facility] 2 19:53:19 Productiv e cough 25043475 Active 2021 Not Available [facility] 2 19:53:19 Pain in bilateral feet 166770294697 32094 Active 2021 Not Available [facility] 2 19:53:19 Pain of left shoulder joint 880289380163 02049 Active 2022 JANETTE DE SOUZA [address] [place] [address], [address], [facility] 3 10:47:08 Tendiniti s of left shoulder 141106838850 9103 Active 2022 Sukhwinder Block DO [address] [place] [address] [place], [address], [facility] 3 16:49:31 Benign prostatic hyperplas ia 445147272 Active 2022 JNAETTE DE SOUZA [address] [place] [address], [address], [facility] 3 15:57:46 Increased frequency of urination 545101013 Active 2023 JANETTE DE SOUZA [address] [place] [address], [address], [facility] 5 14:40:58 Congestiv e heart failure 78212530 Active 2023 JANETTE DE SOUZA [address] [place] [address], [address], [facility] 4 14:40:27 Psoriasis 5283878 Active 2023 JANETTE DE SOUZA [address] [place] [address], [address], [facility] 4 14:40:55 Bilateral tinnitus 944552837535 2 Active 2023 JANETTE DE SOUZA [address] [place] [address], [address], [facility] 4 14:33:04 Bilateral hearing loss 04903737 Active 2023 JANETTE DE SOUZA [address] [place] [address], [address], [facility] 4 12:24:34 Bilateral hearing loss 02794845 Active 2023 JANETTE DE SOUZA [address] [place] [address], [address], [facility] 4 12:26:44 Acute kidney injury 74055988 Active 2023 JANETTE DE SOUZA [address] [place] [address], [address], [facility] 4 13:43:42 Purpuric rash 568238522 Active 2024 JANETTE DE SOUZA [address] [place], [address], [facility] 5 14:48:16 Pain of knee region 9518875062 Active 2024 JANETTE DE SOUZA [address] [place], [address], [facility] 5 14:50:26 Hypoglyce nahomy due to type 2 diabetes mellitus 003432376176 103 Active 2024 JANETTE DE SOUZA [address] [place], [address], [facility] 5 14:54:23 Pigmented skin lesion 239261484 Active 2024 JANETTE DE SOUZA [address] [place], [address], [facility] 5 08:49:03 Nocturia 389795799 Active 2024 JANETTE DE SOUZA [address] [place], [address], [facility] 5 14:38:51 Problem Notes None recorded. Procedures Surgical History Date Name Laterality Status Provider Name and Address Organization Details Recorded Time 023 Corticosteroid Injection completed Sukhwinder Block DO [address] [place], [address], [facility] 10/01/2022 16:48:57 Imaging Results None [...] Available Not Avai lable [employer] Please use as directed. 03/11 completed Not Available Not Available Not Available Vitals Date Recorded Body height Heart rate Oxygen saturation Oxygen saturation in Arterial blood by Pulse oximetry Systolic And Diastolic Provider Name and Address Organization Details Last Updated DateTime 5 172.72 cm 65 /min 95 % 95 % 128/80 mm[Hg] Deirdre Long [facility] 5 14:37:18 Date Recorded Body height Body mass index (BMI) Body weight Heart rate Oxygen saturation Oxygen saturation in Arterial blood by Pulse oximetry Systolic And Diastolic Provider Name and Address Organization Details Last Updated DateTime 5 172.72 cm 51.7 kg/m2 496744. 33 g 75 /min 95 % 95 % 128/80 mm[Hg] Deirdre Long [facility] 5 14:27:29 Date Recorded Body height Body mass index (BMI) Body weight Heart rate Oxygen saturation Oxygen saturation in Arterial blood by Pulse oximetry Systolic And Diastolic Provider Name and Address Organization Details Last Updated DateTime 5 172.72 cm 51.5 kg/m2 844557. 81 g 69 /min 98 % 98 % 128/78 mm[Hg] Cheli Cortez [facility] 5 14:24:17 Date Recorded Body height Body mass index (BMI) Body weight Heart rate Oxygen saturation Oxygen saturation in Arterial blood by Pulse oximetry Systolic And Diastolic Provider Name and Address Organization Details Last Updated DateTime 4 172.72 cm 50.6 kg/m2 862917. 18 g 74 /min 98 % 98 % 122/78 mm[Hg] Deirdre Long [facility] 4 14:26:26 Date Recorded Body height Body mass index (BMI) Body weight Heart rate Oxygen saturation Oxygen saturation in Arterial blood by Pulse oximetry Systolic And Diastolic Provider Name and Address Organization Details Last Updated DateTime 5 172.72 cm 51.5 kg/m2 518202. 81 g 70 /min 98 % 98 % 120/70 mm[Hg] Cheli Diego [facility] 5 14:18:27 Social History Question Answer Notes LastModified by Organizat ion Details LastModified Time Tobacco Smoking Status Never Smoker Not Available [facility] 05/24/2020 03:36:23 What Was The Date Of Your Most Recent Tobacco Screening? 05/10/2025 [email or web address] Information not available 05/10/2025 Sex: Unknown Functional Status Question Answer Note LastModified by Organization D etails LastModified Time Do you or have you ever used any other forms of tobacco or nicotine? No [email or web address] Information not available 06/17/2023 Mental Status None [...] mcg/0.3 mL dose 1 completed Not Available [facility] 05/09/2022 19:53:19 COVID-19, mRNA, LNP-S, PF, 30 mcg/0.3 mL dose 1 completed Not Available [facility] 05/09/2022 19:53:19 influenza, unspecified formulation 2 completed Blanca torres [facility] 06/12/2022 10:14:37 COVID-19, mRNA, LNP-S, PF, 30 mcg/0.3 mL dose 2 completed Blanca torres [facility] 06/12/2022 10:14:56 Influenza, split virus, quadrivalent, preservative 8 completed Not Available [facility] 05/09/2022 19:53:19 tetanus toxoid, unspecified formulation 3 completed Not Available [facility] 05/09/2022 19:53:19 Influenza, split virus, quadrivalent, preservative 9 completed Not Available [facility] 05/09/2022 19:53:19 Past Encounters Encounter ID Performer Location Encounter Start Date Encounter Closed Date Diagnosis/Indication Diagnosis SNOMED-CT Code Diagnosis ICD10 Code Diagnosis IMO Codes Diagnosis Note [id number] Luisana Brumfield NP, S [facility] [address] [place] [address],[place] [address] 10/28/2017 15:25:59 10/29/2017 09:06:14 Essential hypertension 93564834 I10 stable, continue med, refill sent Hydrocele of testis 2661 4003 N43.3 [id number] Sukhwinder Block DO [facility] [address] [place] [address],[place] [address] 12/31/2017 09:11:48 12/31/2017 11:12:53 Edema of lower extremity 090013383 R60.0 D/C HCTZ, f/u in office 2 weeks. pt will have labs at pre op Obstructiv e sleep apnea syndrome 49420075 G47.33 compliant Essential hypertension 48011630 I10 mildly elevated, f/u 2 weeks, addition lasix Body mass index 40+ - severely obese 905612265 Z68.43 will look into weight loss clinic, not [facility], which is full at this time, has seen nutritioni st in past, does cooking, is diabetic, aware of food choices Hydrocele of testis 2661 4003 N43.3 surgery scheduled [id number] Sukhwinder Block DO [facility] [address] [facility],[place] [address] 01/10/2018 09:22:28 01/10/2018 12:10:39 Edema of lower extremity 858489135 R60.0 increase lasix to 2 po QOD Body mass index 40+ - severely obese 680447219 Z68.43 [facility] 459975977 K21.9 stable [id number] Sukhwinder Block DO [facility] [address] [facility],[place] [address] 01/28/2018 15:29:31 01/28/2018 16:18:19 Edema of lower extremity 667892258 R60.0 increase lasix to 40 mg daily [id number] Sukhwinder Block DO [facility] [address] [facility],[place] [address] 04/04/2018 09:27:54 04/04/2018 10:45:56 Morbid obesity 525826064 E66.01 Essential hypertension 97506879 I10 Low back pain 352387133 M54.5 Screening procedure 2012 5006 Z13.9 Sleep apnea 13521454 G47 .30 Edema of l ower extremity 189537954 R60.0 improved, but persistant [id number] Sukhwinder Block DO [facility] [address] [facility],[place] [address] 07/04/2018 09:15:18 07/04/2018 13:33:05 Osteoarthritis 471349634 M19.90 Discussed physical therapy, pt. to think about it Gastric reflux 442294017 K21.9 Sleep apnea 43276205 G47 .30 Compliant with CPAP Morbid obesity 715300931 E66.01 again, reviewed need for decreased caloric intake Essential hypertension 61759532 I10 Stable Screening procedure 2012 5006 Z13.9 [id number] Sukhwinder Block DO [facility] [address] [facility],[place] [address] 10/06/2018 10:09:59 10/06/2018 11:42:42 Edema of lower extremity 927778096 R60.0 worse, weight up Osteoarthritis 335025558 M19.90 Defers physical therapy, will put in referral Sleep apnea 48575549 G47 .30 Compliant with CPAP Morbid obesity 382159530 E66.01 from 347lbs in Jun 2018 to 360 lbs today, ? 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 can't exercise/w alk regularly due to oa in knees weight is stable restrict sodium elevated more work on weight reduction will refer to vascular for surgical eval will get labs if all normal will increase lasix from 60- 80 mg Osteoarthritis 166551763 M19.90 pain from oa limits mobility Sleep apnea 06808301 G47 .30 Compliant with CPAP Morbid obesity 333010470 E66.01 stable at 361 from previous 360 Essential hypertension 67435093 I10 elevated today Venous stasis 93225468 I 87.8 Vitamin D deficiency 347 53107 E55.9 [id number] Sukhwinder Block [facility] [address] [facility],[place] [address] 02/27/2019 11:42:47 02/27/2019 12:17:10 Peripheral edema 802589614 R60.9 Essential hypertension 93547164 I10 elevated today Sleep apnea 41890016 G47 .30 Compliant with CPAP [id number] Sukhwinder Blokc [facility] [address] [facility],[place] [address] 05/11/2019 13:29:21 05/11/2019 14:41:50 Edema of lower extremity 238569688 R60.0 seeing cardo persisting recommend trial off amlodipine Osteoarthritis 019360534 M19.90 pain from oa limits mobility Sleep apnea 49697062 G47 .30 Compliant with CPAP Morbid obesity 057057170 E66.01 stable at 361 from previous 360 Essential hypertension 25625532 I10 stable trial off amlodipine start toprol xr Venous stasis 94778261 I 87.8 seeing cardio Vitamin D deficiency 347 13742 E55.9 Gastroesop hageal reflux disease 567337897 K21.9 [id number] Sukhwinder Block [facility] [address] [facility],[place] [address] 06/09/2019 11:42:09 06/09/2019 11:59:54 Edema of lower extremity 987589879 R60.0 seeing cardo persisting seems improved compared to last visit from 3+ to 1+ today Osteoarthritis 384287904 M19.90 pain from oa limits mobility Sleep apnea 35000296 G47 .30 Compliant with CPAP Morbid obesity 334999924 E66.01 stable at 361 from previous 360 Essential hypertension 06469896 I10 stable with the change from amlodipine to metoprolol Venous stasis 86114230 I 87.8 seeing cardio Gastroesop hageal reflux disease 936823167 K21.9 [id number] Sukhwinder Block [facility] [address] [facility],[place] [address] 07/06/2019 10:49:53 07/06/2019 11:33:43 Pleuritic pain 3530754 R07.81 if ddimer elevated will need to try and obtain a stat cta, if unable will go into ER Dyspnea on exertion 6084 5006 R06.09 Anterior c hest wall pain 704797659 R07.89 left lateral chest wall tenderness to palpation Fever 349666820 R50.9 ? atypical pna, will give abx has also noticed some increased urinary frequency, will get a urine test and culture [id number] Sukhwinder Block [facility] [address] [facility], [place] [address] 08/03/2019 13:44:43 08/03/2019 14:14:29 Essential hypertension 65657198 I10 stable with the change from amlodipine to metoprolol Hematochezia 605658207 K 92.1 no apparent external findings, will have fobt done Constipation 23400000 K5 9.00 fiber, fluid, avoid straining try colace Sleep apnea 16742172 G47 .30 Compliant with CPAP Pneumonia 544843145 J18. 9 resolved Edema of l ower extremity 992655156 R60.0 no swelling today cut bumex from twice a day to once a day and monitor [id number] Sukhwinder Block [facility] [address] [facility] [address] 09/09/2019 14:59:01 09/09/2019 16:35:22 Edema of lower extremity 353678765 R60.0 improved no pitting today still on bumex once a day will trial off bumex, but restart if finds ankles are swelling again Osteoarthritis 567405854 M19.90 pain from oa limits mobility Sleep apnea 49584323 G47 .30 Compliant with CPAP Morbid obesity 290876997 E66.01 improved from last 4 month check Essential hypertension 78351735 I10 well controlled Venous stasis 62089545 I 87.8 seeing cardio edema currently resolved stab Gastroesop hageal reflux disease 851253712 K21.9 going to have EGD/cscope heartburn quiet on the famotidine could consider decreasing if sx are well controlled Internal hemorrhoids 904 06408 K64.8 Vitamin D deficiency 347 62731 E55.9 Impaired f asting glycemia 925510867 R73.01 stable cholestero l well controlled a1c 5.7 [id number] Sukhwinder Block [facility] [address] [facility],[place] [address] 03/11/2020 14:24:38 03/11/2020 15:01:00 Morbid obesity 953109397 E66.01 working on portion control Essential hypertension 88959615 I10 120/82, BP well controlled on metoprolol > no side effects Gastric reflux 408990985 K21.9 on famotidine doing well on medication [id number] Sukhwinder Block [facility] [address] [facility], [place] [address] 07/25/2020 11:24:12 07/25/2020 15:47:38 Shoulder joint pain 681727335 M25.512 the patient having spasms and pain with head movement to the right and using are to lift himself will try muscle relaxer and anti-infla mmatory to see if improvemen t in inflammati on and pain if not will set up with two XRs, shoulder and cervical spine to see if arthritis, herniation Essential hypertension 61583628 I10 BP elevated, most likely do to pain will recheck at fu, usually been well controlled [id number] Sukhwinder Block [facility] [address] [facility] [place] [address] 09/13/2020 15:22:20 09/13/2020 16:23:39 Essential hypertension 88564157 I10 BP excellent today, well controlled on medication no need for interventi on Gastroesop hageal reflux disease 111378787 K21.9 stable on medication , no need for interventi on Morbid obesity 236148820 E66.01 working on portion control and exercise have discussed this in detail Depressive disorder 3548 5457 F32.9 discussed with patient about mental health and options that are available to him including therapy, follows with me or medication s [id number] Sukhwinder Block [facility] [address] [facility],[place] [address] 03/14/2021 13:25:42 03/14/2021 14:23:50 Essential hypertension 10268553 I10 BP excellent today, well controlled on medication no need for interventi on Osteoarthritis 540877649 M19.90 needs re up of his temporary placard for RMV Sleep apnea 18974458 G47 .30 stable Depressive disorder 3548 6397 F32.9 discussed with patient about mental health and options that are available to him including therapy, follows with me or medication s [id number] Sukhwinder Block [facility] [address] [facility] [place] [address] 09/13/2021 13:30:09 09/13/2021 14:47:31 Essential hypertension 68692520 I10 BP excellent today, well controlled on medication no need for interventi on Morbid obesity 222737875 E66.01 working on portion control and exercise have discussed this in detail Edema of l ower extremity 027199337 R60.0 will start back on the bemetanide Type 2 dhiraj betes mellitus 10963017 E11.9 will fu with recheck A1c Peripheral edema 7917722 00 R60.1 will restart the bumetanide for the LE edema [id number] Sukhwinder Block DO [facility] [address] [facility],[place] [address] 09/29/2021 11:00:34 10/02/2021 16:19:17 Pain of left hip joint 7505267914 39013 M25.552 start on tramadol PRN for pain/break through paincan continue meloxicam qd with food as well will fu with XR of the hip [id number] Sukhwinder Block DO [facility] [address] [facility] [facility] [place] [address] 12/05/2021 14:11:41 12/05/2021 15:50:20 Essential hypertension 91514629 I10 BP excellent today, well controlled on medication no need for interventi on Type 2 dhiraj betes mellitus 91272442 E11.9 will fu with recheck A1c Chronic sy stolic heart failure 780575324 I50.22 will recheck with echo, has a diagnosis of right heart failure but normal echo, had LE edema mild [id number] Sukhwinder Block DO [facility] [address] [facility],[place] [address] 01/23/2022 09:26:32 01/23/2022 09:55:00 Acute maxillary sinusitis 47055069 J01.01 will fu with abx and cough suppressan t, will update me on saturday Productive cough 7008442 5 R05.1 will monitorsta rt on mucinex as well [id number] JANETTE DE SOUZA [facility] [address] [facility],[place] [address] 03/07/2022 13:27:47 03/07/2022 14:17:52 Type 2 diabetes mellitus 46236996 E11.9 stable Essential hypertension 47817742 I10 BP excellent today, well controlled [place] [id number] Sukhwinder Block DO [facility] [address] [facility],[place] [address] 06/12/2022 10:04:19 06/12/2022 10:56:03 Type 2 diabetes mellitus 97282210 E11.9 stable; well-contr olled on the metformin Essential hypertension 59311874 I10 BP excellent today, well controlled on medication no need for interventi on Morbid obesity 361341345 E66.01 discussed continued to work on his diet [id number] Sukhwinder Block [facility] [address] [facility],[place] [address] 09/12/2022 10:28:01 09/14/2022 09:13:22 Edema of lower extremity 056903863 R60.0 stable Essential hypertension 86992814 I10 BP is excellent Morbid obesity 809363442 E66.01 up a littledue to taking care of his ; also going back and forth to [place] Type 2 dhiraj betes mellitus 78683113 E11.9 stable; well-contr olled on the metformin Pain of le ft shoulder joint 2368393333 6654202 M25.512 will set up with XR left shoulder [id number] Sukhwinder Block [facility] [address] [facility],[place] [address] 10/01/2022 16:26:20 10/01/2022 16:49:45 Tendinitis of left shoulder 0805431408 859134 M75.92 tolerated left shoulder rose [id number] Sukhwinder Block [facility] [address] [facility],[place] [address] 12/04/2022 15:30:50 12/04/2022 17:23:38 Edema of lower extremity 470189220 R60.0 stable Tendinitis of left shoulder 2824737743 461369 M75.22 stable; no major changes Chronic sy stolic heart failure 103131227 I50.22 stable Essential hypertension 83779297 I10 BP is excellent with recheck Morbid obesity 746277328 E66.01 still working on weight Type 2 dhiraj betes mellitus 11058273 E11.9 stable; well-contr olled on the metformin [id number] Sukhwinder Block [facility] [address] [facility],[place] [address] 03/12/2023 07:59:19 03/12/2023 16:07:13 Chronic systolic heart failure 835362202 I50.22 stable Edema of l ower extremity 233173527 R60.0 stable Essential hypertension 07156341 I10 BP is excellent with recheck Gastric reflux 812767710 K21.9 on famotidine doing well on medication Osteoarthritis 617986470 M15.0 stable Type 2 dhiraj betes mellitus 34705702 E11.9 stable; well-contr olled on the metformin [id number] [facility] [address] [facility],[place] [address] 06/17/2023 15:35:37 06/17/2023 16:42:25 Benign prostatic hyperplasia 444009581 N40.0 will start on the tamsulosin Type 2 dhiraj betes mellitus 37490401 E11.9 stable; well-contr olled on the metformin Essential hypertension 99681725 I10 BP is excellent with recheck Sleep apnea 67219500 G47 .33 stable [id number] [facility] [address] [facility],[place] [address] 09/27/2023 14:13:29 09/27/2023 16:02:50 Increased frequency of urination 947044309 R35.0 will switch out from the tamsulosin to the oxybutynin insteadtam sulosin made him urinate more Peripheral edema 6879906 00 R60.1 will restart the bumetanide for the LE edema Type 2 dhiraj betes mellitus 74412790 E11.9 stable; well-contr olled on the metformin Morbid obesity 445065309 E66.01 still working on weight Congestive heart failure 65986467 I50.22 stable Psoriasis 4047262 L40.8 will use for flare-ups [id number] [facility] [address] [facility],[place] [address] 01/07/2024 14:17:08 01/08/2024 09:26:04 Depression screening 478456755 Z13.31 0 Increased frequency of urination 244088605 R35.0 will switch out to higher dose of the medication Type 2 dhiraj betes mellitus 49306514 E11.9 stable; well-contr olled on the metformins tanding orders put in for the Bilateral tinnitus 69250 03658 102 H93.13 will set him up with audiologis t [id number] [facility] [address], [place] [address] 02/10/2024 11:28:41 02/10/2024 11:59:31 Type 2 diabetes mellitus 72915331 E11.9 will need to adjust medication swill adjust to three metformin, 2 in the AM and 1 in the PMwill check blood work Bilateral hearing loss 91819219 H90.3 will need another check in one year Bilateral tinnitus 30992 74896 102 H93.13 will set him up with ENT per audio [id number] [facility] [address] [place] [address], [place] [address] 02/26/2024 13:28:21 02/26/2024 15:52:26 Type 2 diabetes mellitus 30765598 E11.[address] order for Freestyle Mei 3 Acute kidney injury 1466 9001 N17.0 improved with adjustment of medication and lessening [id number] [facility] [address] [place] [address], [place] [address] 03/11/2024 14:25:02 03/11/2024 15:45:25 Type 2 diabetes mellitus 43081961 E11.[address] order for Freestyle Mei 3, will send [id number] [facility] [address] [facility] [address], [place] [address] 03/27/2024 09:23:39 03/27/2024 15:06:08 Type 2 diabetes mellitus 70800547 E11.65 adjusted medsfu week of the 286 [facility] [address] [facility] [address] [facility], [place] [address] 04/22/2024 14:17:22 04/22/2024 14:59:04 Type 2 diabetes mellitus 92603694 E11.65 stop metformin, increase the glipizide to the 10 mg for controlwil l continue on just the one medication Congestive heart failure 43882535 I50.22 stable Acute kidney injury 1466 9001 N17.0 improved with adjustment of medication and lessening of his sugar Essential hypertension 31426678 I10 BP is excellent with recheck [id number] [facility] [address] [facility] [address] [address] 07/31/2024 14:16:14 07/31/2024 15:31:28 Type 2 diabetes mellitus 39866509 E11.65 cont the glipizide Essential hypertension 19269142 I10 BP is excellent with recheck [id number] [facility] [address] [facility] [address],[place] [address] 11/16/2024 14:12:49 11/16/2024 15:08:16 Depression screening 572271769 Z13.31 0 Purpuric rash 720084423 D69.2 90712 one spot on his right arm Pain of knee region 1003 877111 M25.561 M25.562 G89.29 [id number] sees ortho discussed TKR, weight needs to come downhave been trying to have him start mounjaro but he is hesistant Hypoglycem ia due to type 2 diabetes mellitus [id number] 73158 E11.649 53347554 cont the glipizide in the meantime Edema of l ower extremity 216469055 R60.0 stable Essential hypertension 69978410 I10 BP is excellent Morbid obesity 554840751 E66.01 still working on weight [id number] [facility] [address] [facility] [address],[place] [address] 02/15/2025 14:15:17 02/16/2025 08:14:57 Depression screening 402726119 Z13.31 0 Pain of knee region 1003 418713 M25.561 M25.562 G89.29 60583660 recommende d f/u with [facility] and updated imaging, states his last XR for his knees was 2 years ago with [facility] Morbid obesity 107790905 E66.01 can't afford the injections [id number] DO [facility] [address] [facility] [address],[place] [address] 05/10/2025 14:09:38 05/10/2025 14:47:28 Depression screening 094338535 Z13.31 0 Nocturia 013729137 R35.1 70510 will switch out to higher dose of the medication Increased frequency of urination 967818582 R35.0 60805 will switch out to higher dose of the medication Health Concerns Section Related Observation LastModified by Organization Detai ls LastModified Time None Recorded Concern Status LastModified by Organization Details LastModified Time None Recorded Advance Directives Directive None Recorded Payers Insurance Date Sequence Insurance Name Policy Number Policy Nation Covered Member ID Nation Member ID Guarantor Name 09/27/2023 1 [place]MEDIC[place] PPO) [id number] George Guy [id number] George Guy 05/07/2025 2 [place] [id number] George Guy [id number] George Guy 05/07/2025 1 [place] George Guy [id number] George Guy 09/07/2021 1 [facility] TYPE I (HMO) [id number] George Guy [id number] George Guy 09/07/2021 2 [place] George Guy [id number] George Guy 09/27/2023 1 [place] (MEDICARE [place]PLACEMENT HMO) [id number] George Guy [id number] George Guy Notes Date Note Type Note Provider Name and Address Organization Details Recorded Time 4 text/htm l ROS as noted in the HPI 3 mos f/u BP: today in the office the patient BP is 122/78 L arm the patient is doing well on the BP medication with no side effects and no adjustment of their medications needed today at the appointment well-controlled on medication denies chest pain, sob, ankle swelling, orthopnea, palpitations azra: resolved T2DM: Patient presents today for follow-up for Type 2 Diabetes Recent lab showed much improved sugar and kidney function The patient has been compliant with medicationsThe complications patient is experiencing are some hypoglycemic episodes, correctedThe patient has current concerns about related to their diabetes diagnosisThe patient has been compliant with lifestyle changes including dietary changes, exercise and healthy habits Discussion about feet reveals no changesDiscussion about eyes reveal no changes Treatment plan going forward is dc metformin, up glipizide JANETTE DE SOUZA [address] [place], [address], [facility] 04/22/2024 14:57:45 5 text/htm l ROS as noted in the HPI f/u the patient A1c is 5.5% which is excellentcurrently only on the glipizide 10 mgis noting lows between breakfast and lunchthe patient does have an elevation in the morning before it drops recommended adding something for breakfast, mostly just eats cerealrecommended an egg or protein in the morning as well to avoid the drops has f/u with ortho for his gel injection otherwise doing well will see if this dietary changes help with the JANETTE DE SOUZA [address] [place], [address], [facility] 07/31/2024 15:16:39 5 text/htm l f/u medication check purpura: age related, one sided, lab work has been normal t2dm: stable, discussed going on the mounjaro but patient is still hesitant about starting it (he has a phobia of needles)told him he could also see an endo to discuss as well if he would be more comfortable edema LE: stable HTN: today in the office the patient BP is 128/80 L arm sitting the patient is doing well on the BP medication with no side effects and no adjustment of their medications needed today at the appointment well-controlled on medication denies chest pain, sob, ankle swelling, orthopnea, palpitations JANETTE DE SOUZA [address] [place], [address], [facility] 11/16/2024 15:03:40 5 text/htm l ROS as noted in the HPI 3 mos f/u still having bilateral knee painthe patient reports that he is seeing ortho again in Augustrecommended fu imaging, has tried the injections (both synvisc and cortisone) which are not as effective any moreis trying to lose weight as suggested by this office and their officehas declined med for weight loss the patient will fu with them for further eval and treatment recommendationsmay get some benefit from PT but it's not a roasterman solution ENT appt ?in mar, uvaldo pena recheck his schedule recommended fu with insurance to determine cost of the injections JANETTE DE SOUZA [address] [place], [address], [facility] 02/15/2025 15:04:44 5 text/htm l ROS as noted in [...] check for other problems JANETTE DE SOUZA [address] [place], [address], [facility] 05/10/2025 14:47:01
[2025-05-14 16:30] LABS: Appearance Urine Turbid; Glucose Urine UA Negative (Negative); PH 5.5 (5.0-9.0); Specific Gravity - Urine 1.025 (1.005-1.025)
[2025-05-14 17:36] LABS: Prostate Specific Antigen 1.30 ng/mL (<0.05-4.0)
== END 2025-05-14 13:37 | disposition home or self-care (01) ==
LOC: HO.HMGCLDS 13:36
PROVIDERS: PCP Internal Medicine; Visit Provider Physician Assistant
DX: R35.1 Nocturia (principal); Z12.5 Encounter for screening for malignant neoplasm of prostate; Z13.1 Encounter for screening for diabetes mellitus
CPT/HCPCS: 36415; 81003; 83036; 84153

== ENCOUNTER 2025-07-05 15:00 | Outpatient (AMB) | payer MEDICARE, SELFPAY ==
--- OUTSIDE RECORDS SUMMARY | 2025-02-16 08:30 | XMS_ITS ---
Author Organization [facility] [place] Address [address] [place] [address] Care Team Providers Care Equipment Cleaner Name Role Phone Sukhwinder Block MD Primary Care Provider Tierra Quevedo Unavailable [phone] Medications Medication SIG (Take, Route, Frequency, Duration) Notes Start Date End Date Status Terbinafine HCl 250 MG 1 tablet Orally O nce a day; Duration: 90 days 02/01/2023 Not-Takin g oxyBUTYnin Not-Takin g metFORMIN HCl 500 MG 1 tablet with a emily l Orally Once a day; Duration: 30 day(s) Not-Taking Tamsulosin HCl 0.4 MG 1 capsule Orally O nce a day Not-Taking Ciclopirox Olamine 0.77 % 1 application to affected area Externally to feet Twice a day; Duration: 30 days Not-Taking Lisinopril 20 MG 1 tablet Orally Once a day; Duration: 30 day(s) Active Metoprolol Succinate 25 MG 1 capsule Orally Once a day; Duration: 30 day(s) Active Extra Depth Orthopedic Shoes (1 Pair) with Customized Heat Molded Multidensity Innersoles (3 Pair) as directed Dx: NIDDM (E11.9), Hammertoe Foot Deformity (M20.41,M20.42), Preulcerative Skin Lesion(s) (L85.1) 04/25/2022 Active Famotidine 40 MG 1 tablet at bedtime Orally Once a day; Duration: 30 day(s) Active Bumetanide 2 MG 1 tablet Orally Once a day; Duration: 30 day(s) Active Meloxicam 15 MG 1 tablet Orally Once a day; Duration: 30 day(s) Active glipiZIDE 10 MG 1 tablet 30 minutes before breakfast Orally Once a day Active Encounters Encounter Location Date Provider Diagnosis [facility] [address] [address] 02/16/2025 Tierra Rodriguez Plan Of Treatment Next Appt Details Provider Name:Tierra martinez, 07/20/2025 02:30:00 PM, [address] [place], [address], Progress Notes * Dayami GUYOB: (65 yo M)Acc No.[id number]:02/16/2025 Progress Note Patient: George VILLASENOR Provider: Ranjan Rodriguez DPM :1960 A ge:64 Y S ex:Male Date:02/16/2025 Address:[address] [place], [place] [id number] Pcp:Sukhwinder Block MD Subjective: * Chief Complaints: * * HPI: A t Risk footcare: Pt States Last PCP Visit: D ate: 0 11/16/2024 * Medical History: * Medications: T aking glipiZIDE 10 MG Tablet 1 tablet 30 minutes before breakfast Orally Once a day , Taking Meloxicam 15 MG Tablet 1 tablet Orally Once a day , Taking Metoprolol Succinate 25 MG Capsule ER 24 Hour Sprinkle 1 capsule Orally Once a day , Taking Lisinopril 20 MG Tablet 1 tablet Orally Once a day , Taking Famotidine 40 MG Tablet 1 tablet at bedtime Orally Once a day , Taking Extra Depth Orthopedic Shoes (1 Pair) with Customized Heat Molded Multidensity Innersoles (3 Pair) as directed Dx: NIDDM (E11.9), Hammertoe Foot Deformity (M20.41,M20.42), Preulcerative Skin Lesion(s) (L85.1) , Taking Bumetanide 2 MG Tablet 1 tablet Orally Once a day , Not- Taking/PRN oxyBUTYnin , Not-Taking/PRN metFORMIN HCl 500 MG Tablet 1 tablet with a meal Orally Once a day , Not-Taking/PRN Ciclopirox Olamine 0.77 % Cream 1 application to affected area Externally to feet Twice a day , Not-Taking/PRN Tamsulosin HCl 0.4 MG Capsule 1 capsule Orally Once a day , Not-Taking/PRN Terbinafine HCl 250 MG Tablet 1 tablet Orally Once a day Objective: * Vitals: Assessment: Plan: * Treatment: * Images: * The named appointment provid er may or may not be the originator of this progress note, and it is not deemed complete until electronically signed by the appointment provider. Sign off status: Pending * Provider: Ranjan Rodriguez DPM Date: 0 02/16/2025 Generated for Gisell morales/Frances/Bryce on: 1 09/05/2024 09:33 PM EST History and Physical Notes * HPI (History of Present Illness) Category Sub-Category Detail Notes Category Not es At Risk footcare Pt States Last PCP Visit: Date:: 11/17/19 25
[2025-07-05 15:14] VITALS: BP 132/78; PULSE 69; O2SAT 98; BMI 49.8
--- NOTE | 2025-07-05 15:14 | A.OFFVIS_ITS ---
Vital Signs 07/05/25 15:14 Height 5 ft 9 in Weight 337 lb 4.916 oz BMI 49.8 BP 132/78 Blood Pressure Location Lt brachial Position Sitting Pulse 69 Pulse Source Pulse Oximeter Pulse Oximetry (%) 98 Oxygen Delivery Method Room Air Intake Visit Reasons: Obstructive sleep apnea Intake Note: pt is here for ko follow up and states he is feeling good, some short of breath with exertion. [employer] Required: No Allergies No Known Allergies (No Known Allergies*) Allergy (Verified 07/05/25 15:47) Medication List - Last Reconciled 07/05/25 by Ade Murrell MD bumetanide 2 mg PO DAILY famotidine 40 mg PO BID glipizide 10 mg PO DAILY lisinopril 20 mg PO BID meloxicam 15 mg PO DAILY metoprolol succinate ER 25 mg PO DAILY HPI HPI Obstructive sleep apnea: Details: 65 years old very pleasant gentleman a case of morbid obesity and obstructive sleep apnea is here for 6 months follow-up. He uses CPAP very regularly every night and in fact without using the CPAP he would not be able to sleep well. Only sometimes he has a tendency of falling asleep when he is sitting in the recliner and watching TV. But he does wake up and put on the CPAP. As far as weight is concerned he has not been able to lose much weight. He is not able to do any significant walking or exercises. [facility] Medical History Chronic right heart failure Anal pain Morbid obesity due to excess calories KO on CPAP Essential hypertension SOB (shortness of breath) Leg edema Surgical History History of ankle surgery History of hydrocelectomy Family History Father No problems noted. Mother No problems noted. Social History Alcohol intake: former Patient Tobacco Use Status: Never used Tobacco Review of Systems Const All systems reviewed & are unremarkable except as noted in HPI and below Reports no additional complaints and Denies headache(s) Eyes Reports no additional complaints ENT Denies vertigo, Denies dizziness, Denies headache(s), Denies nasal congestion and Denies nasal discharge Card Denies chest pain, Denies leg edema, Denies lightheadedness and Reports dyspnea on exertion (MILD ) Resp Denies cough and Reports dyspnea on exertion (MILD ) GI Denies change in bowel habits, Denies heartburn and Denies diarrhea Reports no additional complaints Musc Reports no additional complaints and Denies muscle weakness Skin/Breast Reports system reviewed and no additional complaints, except as documented Neuro Denies vertigo, Denies dizziness, Denies headache(s) and Denies focal weakness Psych Reports no additional complaints Endo Reports no additional complaints Rodolfo/Lymph Reports no additional complaints Aller/Immun Reports no additional complaints Physical Exam Vital Signs: Last Vital Signs Pulse 69 07/05/25 15:14 BP 132/78 07/05/25 15:14 Pulse Ox 98 07/05/25 15:14 Oxygen Delivery Method Room Air 07/05/25 15:14 BMI result Body Mass Index 49.8 He is morbidly obese Const General: comfortable, no acute distress, alert and awake Orientation/consciousness: patient oriented x3 HEENT Head: Yes normal to inspection General nose exam: No nasal polyps present and No nasal discharge present Face and sinus: Yes sinuses nontender Mouth: oropharynx normal (Very narrow oropharynx, Mallampati class 4) Throat: Yes posterior oropharynx normal Eyes General: appearance normal, both eyes and all related structures Neck Neck: Yes normal visual inspection, Yes no lymphadenopathy, Yes trachea midline and Yes no JVD Thyroid: Thyroid normal Chest Chest palpation & inspection: normal inspection of the chest, normal palpation of entire chest wall and no tenderness Resp Effort & Inspection: normal respiratory effort and other (Breath sounds are decreased over the basilar areas) Auscultation: clear to auscultation bilaterally, no rales and no wheezes Cardio Palpation: PMI not normal (Not palpable) Rate: regular rate Rhythm: regular rhythm Heart sounds: no gallops and no murmurs GI Palpation (GI): Soft to palpation, nontender, No hepatosplenomegaly present, no masses and Other GI palpation findings present Auscultation: normal bowel sounds Back/Spine/Pelvis Thoracic/Lumbar Spine: thoracic and lumbar spine normal to inspection and thoraco-lumbar ROM limited Skin General skin exam: no rashes or lesions noted Neuro General: patient oriented x3 and no focal motor deficits Cranial nerves: Yes CN's II-XII intact bilaterally Extrem General: Yes normal to inspection, Yes no clubbing, cyanosis or edema and Yes no calf tenderness Psych Speech and movement: Normal speech and movement present Results Reviewed Results Reviewed: Compliance report for the last 30 nights is reviewed. He has used 30/30 nights,. 100% Average usage per night. 6 hours 22 minutes .No air leak noted Residual AHI 1.1 Assessment & Plan Assessment & Plan (1) Morbid obesity due to excess calories: Comment: This gentleman is a case of super morbid obesity. Over the past many years he has not been able to lose any weight. He does not want to join any weight management program. He is also not able to do any significant exercise. Code(s): E66.01 - Morbid (severe) obesity due to excess calories Category: Medical Plan: I talked about diet and need to do exercise. But as noted above he is not able to do any type of exercise. I did talk to him that he should discuss with primary care physician, and may be he could benefit from anti obesity meds. (2) KO on CPAP: Comment: He has history of obstructive sleep apnea for many years. Recently started on new CPAP machine . After a repeat sleep study He is very happy with the CPAP device and is using it regularly. He is using nasal mask which is comfortable COMPLIANCE IS EXCELLENT AND HE IS DEFINITELY BENEFITING FROM THE USE OF CPAP. Code(s): G47.33 - Obstructive sleep apnea (adult) (pediatric); Z99.89 - Dependence on other enabling machines and devices Category: Medical Plan: Commended for good compliance and advised to keep on using the CPAP every night regularly . Coding Level of Care Code Est Pt Level 3 (66278) Diagnoses Morbid obesity due to excess calories E66.01 KO on CPAP G47.33; Z99.89
--- OUTSIDE RECORDS SUMMARY | 2025-07-05 21:34 | XMS_ITS | Data Portability ---
Author Organization [facility], Telehealth Patient Home Address [address] [place] [address] Assessment No assessment recorded. Plan of Treatment Reminders Order Date Submit Date Provider Last Modified By Organization Details Last Modified Time Details Appointments FOLLOW UP 15 2025 02:30P M JANETTE DE SOUZA Not available Not available Not available Lab PSA, serum or plasma 2024 025 [facility], [address] [place] [address], [id number], 05/18/2025 06:12:41 hemoglobi n A1c, QN, blood 2024 025 [facility], [address] [place] [address], [place], [address], 05/10/2025 14:41:02 urinalysi s complete, reflex culture 2024 025 [facility], [address] [place] [address], [id number], 05/10/2025 14:41:03 Referral None recorded. Procedures None recorded. Surgeries None recorded. Imaging None recorded. Medication Orders glipizide ER 10 mg tablet, extended release 24 hr 2023 024 [facility][id number], [address] [facility] [place], [address], 04/22/2024 14:50:50 Patient TargetsNo targets recorded. Patient InstructionsNo instructions recorded. Reason for Referral None Reported. Results Created Date Observation Date Name Description Value Unit Range Abnormal Flag Note LastModifiedBy Organization Detail LastModifiedTime Result Notes None recorded. Problems Name Problem SNOMED Code Status Onset Date Resolution Date Notes Provider Name and Address Organization Details Recorded Time Essential hypertens ion 44898035 Active 2017 Not Available [facility] 2 19:53:19 Morbid obesity 453569801 Active 2017 Not Available [facility] 2 19:53:19 Sleep apnea 22104309 Active 2017 Not Available [facility] 2 19:53:19 Gastric reflux 175083340 Active 2017 Not Available [facility] 2 19:53:19 Osteoarth ritis 630113704 Active 2017 knees Not Available [facility] 2 19:53:19 Edema of lower extremity 865809485 Active 2019 Not Available [facility] 2 19:53:19 Venous stasis 90424628 Active 2019 Not Available [facility] 2 19:53:19 Gastroeso phageal reflux disease 387488456 Active 2019 Not Available [facility] 2 19:53:19 Type 2 diabetes mellitus 37084677 Active 2021 JANETTE DE SOUZA [address] [place], [address], [facility] 5 14:40:00 Chronic systolic heart failure 569122098 Active 2021 Not Available [facility] 2 19:53:19 Productiv e cough 84986235 Active 2021 Not Available [facility] 2 19:53:19 Pain in bilateral feet 022661352271 83137 Active 2021 Not Available [facility] 2 19:53:19 Pain of left shoulder joint 015468338405 49658 Active 2022 JANETTE DE SOUZA [address] [place], [address], [facility] 3 10:47:08 Tendiniti s of left shoulder 153124632132 9103 Active 2022 Sukhwinder Block, [address] [place], [address], [facility] 3 16:49:31 Benign prostatic hyperplas ia 975719205 Active 2022 JANETTE DE SOUZA [address] [place], [address], [facility] 3 15:57:46 Increased frequency of urination 958490273 Active 2023 JANETTE DE SOUZA [address] [place] [address], [address], [facility] 5 14:40:58 Congestiv e heart failure 37536044 Active 2023 JANETTE DE SOUZA [address] [place] [address], [address], [facility] 4 14:40:27 Psoriasis 4105154 Active 2023 JANETTE DE SOUZA [address] [place] [address], [address], [facility] 4 14:40:55 Bilateral tinnitus 468529273180 2 Active 2023 JANETTE DE SOUZA [address] [place] [address], [address], [facility] 4 14:33:04 Bilateral hearing loss 67675379 Active 2023 JANETTE DE SOUZA [address] [place] [address], [address], [facility] 4 12:24:34 Bilateral hearing loss 71897682 Active 2023 JANETTE DE SOUZA [address] [place] [address], [address], [facility] 4 12:26:44 Acute kidney injury 83725746 Active 2023 JANETTE DE SOUZA [address] [place] [address], [address], [facility] 4 13:43:42 Purpuric rash 696651547 Active 2024 JANETTE DE SOUZA [address] [place], [address], [facility] 5 14:48:16 Pain of knee region 6269221448 Active 2024 JANETTE DE SOUZA [address] [place], [address], [facility] 5 14:50:26 Hypoglyce nahomy due to type 2 diabetes mellitus 956513136682 103 Active 2024 JANETTE DE SOUZA [address] [place], [address], [facility] 5 14:54:23 Pigmented skin lesion 940966859 Active 2024 JANETTE DE SOUZA [address] [place], [address], [facility] 5 08:49:03 Nocturia 704144527 Active 2024 JANETTE DE SOUZA [address] [place] [address], [address], [facility] 5 14:38:51 Problem Notes None recorded. Procedures Surgical History Date Name Laterality Status Provider Name and Address Organization Details Recorded Time 023 Corticosteroid Injection completed Sukhwinder Block DO [address] [place], [address], [facility] 10/01/2022 16:48:57 Imaging Results [...] completed Not Available Not Available Not Available Jardiance 25 mg tablet Take 1 tablet every day by oral route for 30 days. 2024 active Not Available Not Available Not Avai lable glucosamine 467 mg-chondroi tin msm no.6 438 [...] Available Not Avai lable FreeStyle Mei [address] [place] Please use as directed. 03/11 completed Not Available Not Available Not Available Vitals Date Recorded Body height Heart rate Oxygen saturation Systolic And Diastolic Provider Name and Address Organization Details Last Updated DateTime 07/31/2024 172.72 cm 65 /min 95 % 128/80 mm[Hg] Deirdre Long [facility] 07/31/2024 14:37:18 Date Recorded Body height Body mass index (BMI) Body weight Heart rate Oxygen saturation Systolic And Diastolic Provider Name and Address Organization Details Last Updated DateTime 5 172.72 cm 51.7 kg/m2 785558. 33 g 75 /min 95 % 128/80 mm[Hg] Deirdre Long [facility] 5 14:27:29 Date Recorded Body height Body mass index (BMI) Body weight Heart rate Oxygen saturation Systolic And Diastolic Provider Name and Address Organization Details Last Updated DateTime 5 172.72 cm 51.5 kg/m2 450212. 81 g 69 /min 98 % 128/78 mm[Hg] Cheli Cortez [facility] 5 14:24:17 Date Recorded Body height Body mass index (BMI) Body weight Heart rate Oxygen saturation Systolic And Diastolic Provider Name and Address Organization Details Last Updated DateTime 4 172.72 cm 50.6 kg/m2 100829. 18 g 74 /min 98 % 122/78 mm[Hg] Deirdre Long [facility] 4 14:26:26 Date Recorded Body height Body mass index (BMI) Body weight Heart rate Oxygen saturation Systolic And Diastolic Provider Name and Address Organization Details Last Updated DateTime 5 172.72 cm 51.5 kg/m2 072910. 81 g 70 /min 98 % 120/70 mm[Hg] Cheli Soriamond [facility] 5 14:18:27 Social History Question Answer Notes LastModified by Organizat ion Details LastModified Time Tobacco Smoking Status Never Smoker Not Available [facility] 05/24/2020 03:36:23 What Was The Date Of Your Most Recent Tobacco Screening? 05/10/2025 [email or web address] Information not available 05/10/2025 Sex: Unknown Functional Status Question Answer Note LastModified by Organization D etails LastModified Time Do you or have you ever used any other forms of tobacco or nicotine? No Information not available 06/17/2023 Mental Status None recorded. Family History Nothing Reported. Medical History Condition Response Coronary Artery Disease N Other N Gout N Kidney Stones N Blood Diseases N Breast Cancer N Blood Transfusion N Lung Disease N COPD N Depression N Defects or Inherited Disease N Anxiety [...] N Thyroid Problems N GI Problems N Skin Problems N Eating Disorder N Anemia N MRSA exposure N Constipation N Mental Illness N Ovarian Cancer N Diabetes N Seizures/Epilepsy N Tuberculosis N Congestive Heart Failure (CHF) N Eczema N Diverticulitis N Abuse/Domestic Violence N Asthma N Reflux/GERD N Hepatitis N Heart Disease N Pulmonary Embolism N Hypertension N Chicken Pox N Autism Spectrum Disorder (ASD) N Osteoporosis N Immunizations Vaccine Type Date Status Note Provider Nam e and Address Organization Details Recorded Time COVID-19, mRNA, LNP-S, PF, 30 mcg/0.3 mL dose 1 completed Not Available [facility] 05/09/2022 19:53:19 COVID-19, mRNA, LNP-S, PF, 30 mcg/0.3 mL dose 1 completed Not Available [facility] 05/09/2022 19:53:19 influenza, unspecified formulation 2 completed Blanca torres [facility] 06/12/2022 10:14:37 COVID-19, mRNA, LNP-S, PF, 30 mcg/0.3 mL dose 2 completed Blanca torres [facility] 06/12/2022 10:14:56 Influenza, split virus, quadrivalent, preservative 8 completed Not Available [facility] 05/09/2022 19:53:19 tetanus toxoid, unspecified formulation 3 completed Not Available [facility] 05/09/2022 19:53:19 Influenza, split virus, quadrivalent, preservative 9 completed Not Available [facility] 05/09/2022 19:53:19 Past Encounters Encounter ID Performer Location Encounter Start Date Encounter Closed Date Diagnosis/Indication Diagnosis SNOMED-CT Code Diagnosis ICD10 Code Diagnosis IMO Codes Diagnosis Note [id number] Luisana Brumfield NP, S [facility] [address] [place] [address],[place] [address] 10/28/2017 15:25:59 10/29/2017 09:06:14 Essential hypertension 11528959 I10 stable, continue med, refill sent Hydrocele of testis 2661 4003 N43.3 [id number] Sukhwinder Block DO [facility] [address] [place] [address] 12/31/2017 09:11:48 12/31/2017 11:12:53 Edema of lower extremity 768242005 R60.0 D/C HCTZ, f/u in office 2 weeks. pt will have labs at pre op Obstructiv e sleep apnea syndrome 60944881 G47.33 compliant Essential hypertension 41348788 I10 mildly elevated, f/u 2 weeks, addition lasix Body mass index 40+ - severely obese 813868320 Z68.43 will look into weight loss clinic, not [facility], which is full at this time, has seen meli st in past, does cooking, is diabetic, aware of food choices Hydrocele of testis 2661 4003 N43.3 surgery scheduled [id number] Sukhwinder Block DO [facility] [address] [facility], [place] [address] 01/10/2018 09:22:28 01/10/2018 12:10:39 Edema of lower extremity 196269417 R60.0 increase lasix to 2 po QOD Body mass index 40+ - severely obese 112952428 Z68.43 [facility] 031751446 K21.9 stable [id number] Sukhwinder Block DO [facility] [address] [facility],[place] [address] 01/28/2018 15:29:31 01/28/2018 16:18:19 Edema of lower extremity 358793422 R60.0 increase lasix to 40 mg daily [id number] Sukhwinder Block DO [facility] [address] [facility] [place] [address] 04/04/2018 09:27:54 04/04/2018 10:45:56 Morbid obesity 879831231 E66.01 Essential hypertension 92688608 I10 Low back pain 865625175 M54.5 Screening procedure 2012 5006 Z13.9 Sleep apnea 68074902 G47 .30 Edema of l ower extremity 382988204 R60.0 improved, but persistant [id number] Sukhwinder Block DO [facility] [address] [facility], [place] [address] 07/04/2018 09:15:18 07/04/2018 13:33:05 Osteoarthritis 628601686 M19.90 Discussed physical therapy, pt. to think about it Gastric reflux 203326884 K21.9 Sleep apnea 29016420 G47 .30 Compliant with CPAP Morbid obesity 094720545 E66.01 again, reviewed need for decreased caloric intake Essential hypertension 17255432 I10 Stable Screening procedure 2012 5006 Z13.9 [id number] Sukhwinder Block DO [facility] [address] [facility] [address] 10/06/2018 10:09:59 10/06/2018 11:42:42 Edema of lower extremity 993592891 R60.0 worse, weight up Osteoarthritis 046104965 M19.90 Defers physical therapy, will put in referral Sleep apnea 19608770 G47 .30 Compliant with CPAP Morbid obesity 755714557 E66.01 from 347lbs in Jun 2018 to 360 lbs today, ? 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 can't exercise/w alk regularly due to oa in knees weight is stable restrict sodium elevated more work on weight reduction will refer to vascular for surgical eval will get labs if all normal will increase lasix from 60- 80 mg Osteoarthritis 012081488 M19.90 pain from oa limits mobility Sleep apnea 08737494 G47 .30 Compliant with CPAP Morbid obesity 072791650 E66.01 stable at 361 from previous 360 Essential hypertension 63357323 I10 elevated today Venous stasis 49078345 I 87.8 Vitamin D deficiency 347 86207 E55.9 [id number] Sukhwinder Block DO [facility] [address] [facility],[place] [facility] [address] 02/27/2019 11:42:47 02/27/2019 12:17:10 Peripheral edema 589039043 R60.9 Essential hypertension 25553886 I10 elevated today Sleep apnea 60897041 G47 .30 Compliant with CPAP [id number] Sukhwinder Block DO [facility] [address] [facility],[place] [address] 05/11/2019 13:29:21 05/11/2019 14:41:50 Edema of lower extremity 690771613 R60.0 seeing cardo persisting recommend trial off amlodipine Osteoarthritis 218040214 M19.90 pain from oa limits mobility Sleep apnea 47339066 G47 .30 Compliant with CPAP Morbid obesity 736790544 E66.01 stable at 361 from previous 360 Essential hypertension 40257513 I10 stable trial off amlodipine start toprol xr Venous stasis 15291997 I 87.8 seeing cardio Vitamin D deficiency 347 51603 E55.9 Gastroesop hageal reflux disease 056564571 K21.9 [id number] Sukhwinder Block [facility] [address] [facility],[place] [address] 06/09/2019 11:42:09 06/09/2019 11:59:54 Edema of lower extremity 515345616 R60.0 seeing cardo persisting seems improved compared to last visit from 3+ to 1+ today Osteoarthritis 983269966 M19.90 pain from oa limits mobility Sleep apnea 91865231 G47 .30 Compliant with CPAP Morbid obesity 491728688 E66.01 stable at 361 from previous 360 Essential hypertension 65073266 I10 stable with the change from amlodipine to metoprolol Venous stasis 13147976 I 87.8 seeing cardio Gastroesop hageal reflux disease 853105596 K21.9 [id number] Sukhwinder Block [facility] [address] [facility],[place] [address] 07/06/2019 10:49:53 07/06/2019 11:33:43 Pleuritic pain 7999089 R07.81 if ddimer elevated will need to try and obtain a stat cta, if unable will go into ER Dyspnea on exertion 6084 5006 R06.09 Anterior c hest wall pain 515597653 R07.89 left lateral chest wall tenderness to palpation Fever 584776669 R50.9 ? atypical pna, will give abx has also noticed some increased urinary frequency, will get a urine test and culture [id number] Sukhwinder Block [facility] [address] [facility], [place] [address] 08/03/2019 13:44:43 08/03/2019 14:14:29 Essential hypertension 94108382 I10 stable with the change from amlodipine to metoprolol Hematochezia 633989388 K 92.1 no apparent external findings, will have fobt done Constipation 12854601 K5 9.00 fiber, fluid, avoid straining try colace Sleep apnea 24263517 G47 .30 Compliant with CPAP Pneumonia 341848038 J18. 9 resolved Edema of l ower extremity 202074574 R60.0 no swelling today cut bumex from twice a day to once a day and monitor [id number] Sukhwinder Block [facility] [address] [facility],[place] [address] [facility] [place] [address] 09/09/2019 14:59:01 09/09/2019 16:35:22 Edema of lower extremity 666078630 R60.0 improved no pitting today still on bumex once a day will trial off bumex, but restart if finds ankles are swelling again Osteoarthritis 419808055 M19.90 pain from oa limits mobility Sleep apnea 60308397 G47 .30 Compliant with CPAP Morbid obesity 754585492 E66.01 improved from last 4 month check Essential hypertension 09917903 I10 well controlled Venous stasis 28113725 I 87.8 seeing cardio edema currently resolved stab Gastroesop hageal reflux disease 193556193 K21.9 going to have EGD/cscope heartburn quiet on the famotidine could consider decreasing if sx are well controlled Internal hemorrhoids 904 34472 K64.8 Vitamin D deficiency 347 47601 E55.9 Impaired f asting glycemia 773295198 R73.01 stable cholestero l well controlled a1c 5.7 [id number] Sukhwinder Block [facility] [address] [facility],[place] [address] 03/11/2020 14:24:38 03/11/2020 15:01:00 Morbid obesity 468667294 E66.01 working on portion control Essential hypertension 98394504 I10 120/82, BP well controlled on metoprolol > no side effects Gastric reflux 649064331 K21.9 on famotidine doing well on medication [id number] Sukhwinder Block [facility] [address] [facility],[place] [facility] [place] [address] 07/25/2020 11:24:12 07/25/2020 15:47:38 Shoulder joint pain 479177832 M25.512 the patient having spasms and pain with head movement to the right and using are to lift himself will try muscle relaxer and anti-infla mmatory to see if improvemen t in inflammati on and pain if not will set up with two XRs, shoulder and cervical spine to see if arthritis, herniation Essential hypertension 60340711 I10 BP elevated, most likely do to pain will recheck at fu, usually been well controlled [id number] Sukhwinder Block [facility] [address] [facility],[place] [address] 09/13/2020 15:22:20 09/13/2020 16:23:39 Essential hypertension 44594234 I10 BP excellent today, well controlled on medication no need for interventi on Gastroesop hageal reflux disease 159445310 K21.9 stable on medication , no need for interventi on Morbid obesity 286416875 E66.01 working on portion control and exercise have discussed this in detail Depressive disorder 3548 7607 F32.9 discussed with patient about mental health and options that are available to him including therapy, follows with me or medication s [id number] Sukhwinder Block [facility] [address] [facility],[place] [address] 03/14/2021 13:25:42 03/14/2021 14:23:50 Essential hypertension 81420886 I10 BP excellent today, well controlled on medication no need for interventi on Osteoarthritis 645318590 M19.90 needs re up of his temporary placard for RMV Sleep apnea 70831256 G47 .30 stable Depressive disorder 3548 9007 F32.9 discussed with patient about mental health and options that are available to him including therapy, follows with me or medication s [id number] Sukhwinder Block [facility] [address] [facility],[place] [address] 09/13/2021 13:30:09 09/13/2021 14:47:31 Essential hypertension 62560310 I10 BP excellent today, well controlled on medication no need for interventi on Morbid obesity 349417549 E66.01 working on portion control and exercise have discussed this in detail Edema of l ower extremity 353061980 R60.0 will start back on the bemetanide Type 2 dhiraj betes mellitus 38542043 E11.9 will fu with recheck A1c Peripheral edema 8097700 00 R60.1 will restart the bumetanide for the LE edema [id number] Sukhwinder Block DO [facility] [address] [facility] [address],[place] [address] 09/29/2021 11:00:34 10/02/2021 16:19:17 Pain of left hip joint 9510663976 40425 M25.552 start on tramadol PRN for pain/break through paincan continue meloxicam qd with food as well will fu with XR of the hip [id number] Sukhwinder Block DO [facility] [address] [facility] [address],[place] [address] 12/05/2021 14:11:41 12/05/2021 15:50:20 Essential hypertension 90070192 I10 BP excellent today, well controlled on medication no need for interventi on Type 2 dhiraj betes mellitus 06550561 E11.9 will fu with recheck A1c Chronic sy stolic heart failure 370869702 I50.22 will recheck with echo, has a diagnosis of right heart failure but normal echo, had LE edema mild [id number] Sukhwinder Block DO [facility] [address] [facility],[place] [address] 01/23/2022 09:26:32 01/23/2022 09:55:00 Acute maxillary sinusitis 88498298 J01.01 will fu with abx and cough suppressan t, will update me on saturday Productive cough 3604738 5 R05.1 will monitorsta rt on mucinex as well [id number] JANETTE DE SOUZA [facility] [address] [facility] [address],[place] [address] 03/07/2022 13:27:47 03/07/2022 14:17:52 Type 2 diabetes mellitus 65512412 E11.9 stable Essential hypertension 84824594 I10 BP excellent today, well controlled [place] [id number] Sukhwinder Block DO [facility] [address] [facility] [address],[place] [address] 06/12/2022 10:04:19 06/12/2022 10:56:03 Type 2 diabetes mellitus 51428461 E11.9 stable; well-contr olled on the metformin Essential hypertension 01627423 I10 BP excellent today, well controlled on medication no need for interventi on Morbid obesity 671785681 E66.01 discussed continued to work on his diet [id number] Sukhwinder Block [facility] [address] [facility] [address],[place] [address] 09/12/2022 10:28:01 09/14/2022 09:13:22 Edema of lower extremity 068949650 R60.0 stable Essential hypertension 09741784 I10 BP is excellent Morbid obesity 882153773 E66.01 up a littledue to taking care of his ; also going back and forth to [place] Type 2 dhiraj betes mellitus 45759064 E11.9 stable; well-contr olled on the metformin Pain of le ft shoulder joint 9886824727 6409170 M25.512 will set up with XR left shoulder [id number] Sukhwinder Block [facility] [address] [facility] [address],[place] [address] 10/01/2022 16:26:20 10/01/2022 16:49:45 Tendinitis of left shoulder 1329367939 224096 M75.92 tolerated left shoulder rose [id number] Sukhwinder Block [facility] [address] [facility] [address],[place] [address] 12/04/2022 15:30:50 12/04/2022 17:23:38 Edema of lower extremity 021943026 R60.0 stable Tendinitis of left shoulder 5432084240 009888 M75.22 stable; no major changes Chronic sy stolic heart failure 440365865 I50.22 stable Essential hypertension 88776498 I10 BP is excellent with recheck Morbid obesity 897467694 E66.01 still working on weight Type 2 dhiraj betes mellitus 92041039 E11.9 stable; well-contr olled on the metformin [id number] Sukhwinder Block [facility] [address] [facility] [address],[place] [address] 03/12/2023 07:59:19 03/12/2023 16:07:13 Chronic systolic heart failure 444808582 I50.22 stable Edema of l ower extremity 789300367 R60.0 stable Essential hypertension 31453328 I10 BP is excellent with recheck Gastric reflux 794384680 K21.9 on famotidine doing well on medication Osteoarthritis 199774268 M15.0 stable Type 2 dhiraj betes mellitus 18403376 E11.9 stable; well-contr olled on the metformin [id number] Sukhwinder Block [facility] [address] [facility],[place] [address] 06/17/2023 15:35:37 06/17/2023 16:42:25 Benign prostatic hyperplasia 956076696 N40.0 will start on the tamsulosin Type 2 dhiraj betes mellitus 20407832 E11.9 stable; well-contr olled on the metformin Essential hypertension 16088548 I10 BP is excellent with recheck Sleep apnea 65236472 G47 .33 stable [id number] Sukhwinder Block [facility] [address] [facility],[place] [address] 09/27/2023 14:13:29 09/27/2023 16:02:50 Increased frequency of urination 752202505 R35.0 will switch out from the tamsulosin to the oxybutynin insteadtam sulosin made him urinate more Peripheral edema 8018927 00 R60.1 will restart the bumetanide for the LE edema Type 2 dhiraj betes mellitus 04512366 E11.9 stable; well-contr olled on the metformin Morbid obesity 208652805 E66.01 still working on weight Congestive heart failure 59044108 I50.22 stable Psoriasis 2671131 L40.8 will use for flare-ups 402766 uSkhwinder Block [facility] [address] [facility], [place] [facility] [address] 01/07/2024 14:17:08 01/08/2024 09:26:04 Depression screening 255448288 Z13.31 0 Increased frequency of urination 390224443 R35.0 will switch out to higher dose of the medication Type 2 dhiraj betes mellitus 50109743 E11.9 stable; well-contr olled on the metformins tanding orders put in for the Bilateral tinnitus 27725 33802 102 H93.13 will set him up with audiologis t 265249 Sukhwinder Block [facility] [address] [facility],[place] [facility] [address] 02/10/2024 11:28:41 02/10/2024 11:59:31 Type 2 diabetes mellitus 09721152 E11.9 will need to adjust medication swill adjust to three metformin, 2 in the AM and 1 in the PMwill check blood work Bilateral hearing loss 24973358 H90.3 will need another check in one year Bilateral tinnitus 65472 12736 102 H93.13 will set him up with ENT per audio 563467 Sukhwinder Block [facility] [address] [facility],[place] [address] 02/26/2024 13:28:21 02/26/2024 15:52:26 Type 2 diabetes mellitus 09997677 E11.[address] order for Freestyle Mei 3 Acute kidney injury 1466 9001 N17.0 improved with adjustment of medication and lessening 091368 Sukhwinder Block [facility] [address] [facility],[place] [address] 03/11/2024 14:25:02 03/11/2024 15:45:25 Type 2 diabetes mellitus 35905149 E11.[address] order for Freestyle Mei 3, will send [id number] Sukhwinder Block [facility] [address] [facility],[place] [address] 03/27/2024 09:23:39 03/27/2024 15:06:08 Type 2 diabetes mellitus 77876427 E11.65 adjusted medsfu week of the 286 Sukhwinder Block [facility] [address] [facility],[place] [address] 04/22/2024 14:17:22 04/22/2024 14:59:04 Type 2 diabetes mellitus 97802793 E11.65 stop metformin, increase the glipizide to the 10 mg for controlwil l continue on just the one medication Congestive heart failure 99534710 I50.22 stable Acute kidney injury 1466 9001 N17.0 improved with adjustment of medication and lessening of his sugar Essential hypertension 93987090 I10 BP is excellent with recheck 137388 Sukhwinder Block [facility] [address] [facility] [address],[place] [address] 07/31/2024 14:16:14 07/31/2024 15:31:28 Type 2 diabetes mellitus 84991659 E11.65 cont the glipizide Essential hypertension 85905618 I10 BP is excellent with recheck [id number] Sukhwinder Block [facility] [address] [facility] on [address],[place] [address] 11/16/2024 14:12:49 11/16/2024 15:08:16 Depression screening 213996898 Z13.31 0 Purpuric rash 909109026 D69.2 76459 one spot on his right arm Pain of knee region 1003 292141 M25.561 M25.562 G89.29 48167648 sees ortho discussed TKR, weight needs to come downhave been trying to have him start mounjaro but he is hesistant Hypoglycem ia due to type 2 diabetes mellitus 3415667004 14388 E11.649 10884835 cont the glipizide in the meantime Edema of l ower extremity 248028823 R60.0 stable Essential hypertension 04875323 I10 BP is excellent Morbid obesity 918613326 E66.01 still working on weight [id number] Sukhwinder Block [facility] [address] [facility] [address],[place] [address] 02/15/2025 14:15:17 02/16/2025 08:14:57 Depression screening 206670650 Z13.31 0 Pain of knee region 1003 060399 M25.561 M25.562 G89.29 73091815 recommende d f/u with [facility] and updated imaging, states his last XR for his knees was 2 years ago with [facility] Morbid obesity 839436622 E66.01 can't afford the injections [id number] Sukhwinder Block DO [facility] [address],[place] [address] 05/10/2025 14:09:38 05/10/2025 14:47:28 Depression screening 521173325 Z13.31 0 Nocturia 679686217 R35.1 42186 will switch out to higher dose of the medication Increased frequency of urination 845420671 R35.0 42715 will switch out to higher dose of the medication Health Concerns Section Related Observation LastModified by Organization Detai ls LastModified Time None Recorded Concern Status LastModified by Organization Details LastModified Time None Recorded Advance Directives Directive None Recorded Payers Insurance Date Sequence Insurance Name Policy Number Policy Nation Covered Member ID Nation Member ID Guarantor Name 09/27/2023 1 [place]MEDICARE [place]AC[place] PPO) [id number] George Guy [id number] George Guy 05/07/2025 2 [place] [id number] George Guy [id number] George Guy 05/07/2025 1 [place] [employer] George Guy [id number] George Guy 09/07/2021 1 [facility] TYPE I (HMO) [id number] George Guy [id number] George Guy 09/07/2021 2 [place] [employer] [employer] George Guy [id number] George Guy 09/27/2023 1 [place] (MEDICARE REPLACEMENT HMO) [id number] George Guy [id number] George Guy Notes Date Note Type [...] metformin, up glipizide JANETTE DE SOUZA [address] [place], [address], [facility] 04/22/2024 14:57:45 5 text/htm [...] help with the JANETTE DE SOUZA [address] [place], [address], [facility] 07/31/2024 15:16:39 5 text/htm [...] swelling, orthopnea, palpitations JANETTE DE SOUZA [address] [place], [address], 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 02/15/2025 15:04:44 5 text/htm [...] for other problems JANETTE DE SOUZA [address] [place], [address], [facility] 05/10/2025 14:47:01
--- OUTSIDE RECORDS SUMMARY | 2025-07-05 21:34 | XMS_ITS | Patient Health Record ---
Author Organization [facility] Address [address] [place] [address] Care Team Providers Care Dining Service Inspector Name Role Phone Umair Sukhwinder Primary Care Provider Minh Nguyen [phone] Allergies No Known Allergies Reason For Referral No Information Medications Medication SIG (Take, Route, Frequency, Duration) Notes Start Date End Date Status Famotidine 40 MG Tablet TAKE 1 TABLET BY MOUTH TWICE A DAY NEEDED Oral Twice a day Active Bumetanide 2 MG Tablet TAKE 1 TABLET BY MOUTH TWICE A DAY Oral; Duration: 90 Active Preparation H 0.25-88.44 % Suppository 1 Rectal Twice a day--use once in AM and once QHS for 1 week, and then prn for rectal pain or bleeding; Duration: 30 days 02/18/2020 Active Turmeric 500 MG Capsule as directed Orally Active Metoprolol Tartrate 25 MG Tablet 1 tablet with food Orally ONCE a day Active Lisinopril 20 MG Tablet 1 tablet Orally TWICE A DAY Active Immunizations Vaccine Route Administration Date Status Comme nts Influenza Unknown 05/24/2020 Administered Social History Social History Drugs/Alcohol: Social Info Question Answer Notes Alcohol Screen Did you have a drink containing alcohol in the past year? 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 Section Notes: Nonsmoker; no alcohol Nonsmoker; no alcohol Nonsmoker; no alcohol Problems Problem Type SNOMED Code ICD Code Onset Dates Problem Status W/U Status Risk Notes Problem Gastroesophageal reflux disease (851069792) Gastroesophageal reflux disease, esophagitis presence not specified (K21.9) Active confirmed Problem Hemorrhage of rectum and anus (234180701) Rectal bleed (K62.5) Active confirmed Problem Rectal pain (52181752) Rectal pain (K62.89) Active confirmed Problem Constipation (66736851) Constipation, unspecified constipation type (K59.00) Active confirmed Plan Of Treatment Future Test Test Name Order Date COLONOSCOPY 11/12/2012 UPPER GI ENDOSCOPY 08/25/2019 COLONOSCOPY 08/25/2019 Insurance Providers Payer Name Payer Address Payer Phone Subscriber Number Group Number Insured Name Patient Relationship to Insured Coverage Start Date Coverage End Date [facility] [employer] [address] [place] [address] [id number] SCARLETT LOPEZ Self - patient is the insured Medical (General) History Medical History History ICD Code Arthritis in his knees Denies NE,DM,CVA,Lung disease,renal dise ase Sleep apnea-uses a CPAP machine Neg screening colonoscopy in 01/2013 except diverticulosis and minimal internal hemorrhoids GERD-EGD 10/2019 Moderate-siz ed HH, small area of Edgar's without dysplasia; no esophagitis LE edema Neg. colonoscopy in 10/2019 except science intern al hemorrhoids Surgical History Surgery Date(Month/Year) Ankle surgery RIGHT Hydrocele repair 2017
--- OUTSIDE RECORDS SUMMARY | 2025-07-05 21:34 | XMS_ITS | Continuity of Care Document ---
Author Organization [place] [facility], [facility] Address [address] [facility] [place] [address] Care Team Providers Care Chief Engineer Name Role Phone INDU BEE Referring Provider LEE VITAL Primary Care Provider Assessment Encounter Date Assessment Date Assessment LastModified by Organization Details LastModified Time 05/27/2025 05/27/2025 Follow up with referring provider. beth Not available 05/27/2025 10:59:24 Plan of Treatment Reminders Order Date Submit Date Provider Last Modified By Organization Details Last Modified Time Details Appointments Hearing Test Same Day (First) 2025 03:00P M Hearing Test Not available Not available Not available Establish ed 15 2025 03:30P M LANEY KILGORE MD Not available Not available Not available Lab None recorded. Referral None recorded. Procedures None recorded. Surgeries None recorded. Imaging None recorded. Medication Orders None recorded. Patient TargetsNo targets recorded. Patient InstructionsNo instructions recorded. Reason for Referral None Reported. Results Created Date Observation Date Name Description Value Unit Range Abnormal Flag Note LastModifiedBy Organization Detail LastModifiedTime 05/27/20 25 audio gram No observ ation record ed. BARCODE Not Available 2024 16:46:22 Result Notes None recorded. Problems Name Problem SNOMED Code Status Onset Date Resolution Date Notes Provider Name and Address Organization Details Recorded Time Sensorineural hearing loss of bilateral ears 420677982 Active 2024 JANELL YADAV, [facility] [address], [address] [place] [address] - [facility] 11:11:31 Problem Notes None recorded. Procedures Surgical History Date Name Laterality Status Provider Name and Address Organization Details Recorded Time 05/27/2025 Comp Audio with Tymps - 32615 & 54621 completed JANELL YADAV, [address], [address], [place] - [facility] 05/27/2025 10:59:25 Imaging Results None recorded. Procedure Notes None recorded. Medical Equipment None Reported. Medications Name Sig Start Date Stop Date Status Note LastModified by Organization Details LastModified Time bumetanide 2 mg tablet TAKE 1 TABLET BY MOUTH TWICE A DAY active Not Available Not Available No t Available oxybutynin chloride ER 10 mg tablet,exten ded release 24 hr TAKE 1 TABLET BY [...] Available No t Available oxybutynin chloride ER 5 mg tablet,exten ded release 24 hr TAKE 1 TABLET BY MOUTH EVERY DAY FOR 30 DAYS active Not Available Not Available No t Available metoprolol succinate ER 25 mg tablet,exten ded release 24 hr TAKE 1 TABLET BY MOUTH EVERY DAY active Not Available Not Available No t Available metformin ER 500 mg tablet,exten ded release 24 hr TAKE 1 TABLET BY MOUTH THREE TIMES A DAY DIRECTED FOR 90 DAYS active Not Available Not Available Not Available Lantus Solostar U-100 Insulin 100 unit/mL (3 mL) subcutaneous pen INJECT 3 UNITS EVERY DAY BY SUBCUTANEOU S ROUTE DIRECTED FOR 30 DAYS. active Not Available Not Available No t Available Vitals Date Recorded Body height Body mass index (BMI) Body weight Provider Name and Address Organization Details Last Updated DateTime 05/27/2025 172.72 cm 50.9 kg/m2 680687.44 g Marixa Cordero [place] - [facility] 05/27/2025 11:15:48 Social History None recorded. Functional Status None recorded. Mental Status None recorded. Family History Nothing Reported. Medical History Condition Response Heart Problems Y Arthritis Y Hypertension Y Past Encounters Encounter ID Performer Location Encounter Start Date Encounter Closed Date Diagnosis/Indication Diagnosis SNOMED-CT Code Diagnosis ICD10 Code Diagnosis IMO Codes Diagnosis Note [id number] LANEY KILGORE MD [facility] on [address] [place] [address] 05/27/2025 10:10:10 05/31/2025 10:26:57 Sensorineural hearing loss of bilateral ears 677917897 H90.3 [id number] Audiologic al evaluation results: Normal sloping to moderate sensorineu ral hearing loss at 8kHz with excellent word recognitio n, bilaterall y.Asymmetr y present at 6kHz with L>R. Tympanomet ry:Right Ear:Type ALeft Ear:Type A [id number] MARLON RAYA [facility] on [address] [place] [address] 05/27/2025 10:59:13 05/27/2025 11:31:54 Sensorineural hearing loss of bilateral ears 717504238 H90.3 [id number] Audiologic al evaluation results: Normal sloping to moderate sensorineu ral hearing loss at 8kHz with excellent word recognitio n, bilaterall y.Asymmetr y present at 6kHz with L>R. Tympanomet ry:Right Ear:Type ALeft Ear:Type A Health Concerns Section Related Observation LastModified by Organization Detai ls LastModified Time None Recorded Concern Status LastModified by Organization Details LastModified Time None Recorded Payers Encounter Date Sequence Insurance Name Policy Number Policy Nation Covered Member ID Nation Member ID Guarantor Name 05/27/2025 1 [place] [employer] George Guy [id number] George Guy 05/27/2025 2 BCBS-[place] [facility] [id number] George Guy [id number] George Guy Notes Date Note Type Note Provider Name and Address Organization Details Recorded Time 05/27/2025 text/html Audiological Cecilia luation HPIReported by PatientTinnitusFor tinnitus reported, patient reportsboth ears (worse in the left ear). For sounds like, patient reportshigh pitched. MARLON RAYA [address] [facility],[address], [address], [facility] 05/27/2025 11:14:34 05/27/2025 text/html George Guy is a 65-year-old male who presents for left-sided tinnitus and hearing concerns. He reports noticing symptoms approximately five to six years ago. 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 He drinks one cup of caffeine daily and does not add salt to his diet. He has a history of elevated blood sugars, with an A1c of 6.6 reported a year ago. He has not undergone head imaging previously. He underwent a hearing test in [place] last year, and another test was performed today. He has sleep apnea and uses a CPAP device. He notes occasional difficulty hearing when there are barriers, such as bain, between him and the source of sound. LANEY KILGORE MD [address] [facility],[place] [address], [place], [address], [facility] 05/28/2025 17:10:33
--- OUTSIDE RECORDS SUMMARY | 2025-07-05 21:34 | XMS_ITS | Clinical Summary ---
Author Organization Located Within [facility] Address [address] [place] [address] Phone Care Team Providers Care Drier Attendant Name Role Phone Sukhwinder Block DO Primary Care Provider Encounters Date Type Department Care Team Description 05/24/2025 Telephone [facility] Internal Medicine [address] [place] [address] Sukhwinder Block, Move new appt to [facility] from Last 3 Months Social History Tobacco [...] 2:00 PM EDT Office Visit [facility] [address] [place] [address] [place] [address] Sun Triplett MD [address] [place] [address] [email or web address] Health Maintenance Due Date Last Done Comments [...] VACCINE (#1) 2025 COVID-19 VACCINE (1 - 2024-2 6 season) 2025 RSV VACCINE [...] file Insurance MEDICARE PART A & B [facility] MEDEX SUPPLEMENT MEDICARE PART A & B Member Subscriber Plan / Payer (Ef fective 2020-Present) Name:George Guy Member ID:[id number] Relation to Subscriber:Self Name:Guy George Subscriber ID:[id number] Payer ID:[id number] Group ID:Not on file Type:Medicare Address: [employer] [facility] [address] [facility] MEDEX SUPPLEMENT MEDICARE PART A & B mCASH MEDEX SUPPLEMENT MEDICARE PART A & B [employer] MEDEX SUPPLEMENT MEDICARE PART A & B [employer] MEDEX SUPPLEMENT MEDICARE PART A & B [employer] MEDEX SUPPLEMENT Care Teams Drier Attendant Relationship Specialty Start Date End Date Sukhwinder Block DO [address] [place] [id number] [email or web address] PCP - General Internal Medicine 03/12/25 Additional Source Comments The information contained in this document represents components of the legal health record. It is not the complete legal health record.Located Within [facility]
--- OUTSIDE RECORDS SUMMARY | 2025-07-05 21:34 | XMS_ITS | Continuity of Care Document ---
Author Organization [facility], [facility] Address [address] [place] [address] Assessment No assessment recorded. Plan of Treatment Reminders Order Date Submit Date Provider Last Modified By Organization Details Last Modified Time Details Appointments FOLLOW UP 15 2025 02:30P M JANETTE DE SOUZA Not available Not available Not available Lab PSA, serum or plasma 2024 025 [facility], [address] [place] [address], [id number], 05/18/2025 06:12:41 hemoglobi n A1c, QN, blood 2024 025 [facility], [address] [place] [address], [place], [address], 05/10/2025 14:41:02 urinalysi s complete, reflex culture 2024 025 [facility], [address] [place] [address], [id number], 05/10/2025 14:41:03 Referral None recorded. Procedures None [...] Organization Details Recorded Time Essential hypertens ion 47540714 Active 2017 Not Available [facility] 10/19/202 2 19:53:19 Morbid obesity 710525888 Active 2017 Not Available [facility] 2 19:53:19 Sleep apnea 25938435 Active 2017 Not Available [facility] 2 19:53:19 Gastric reflux 378233103 Active 2017 Not Available [facility] 2 19:53:19 Osteoarth ritis 750507924 Active 2017 knees Not Available [facility] 2 19:53:19 Edema of lower extremity 080262417 Active 2019 Not Available [facility] 2 19:53:19 Venous stasis 32476209 Active 2019 Not Available [facility] 2 19:53:19 Gastroeso phageal reflux disease 904795489 Active 2019 Not Available [facility] 2 19:53:19 Type 2 diabetes mellitus 01869172 Active 2021 JANETTE DE SOUZA [address] [place], [address], [facility] 5 14:40:00 Chronic systolic heart failure 833963782 Active 2021 Not Available [facility] 2 19:53:19 Productiv e cough 03979090 Active 2021 Not Available [facility] 2 19:53:19 Pain in bilateral feet 541046913154 10756 Active 2021 Not Available [facility] 2 19:53:19 Pain of left shoulder joint 344641947829 73751 Active 2022 JANETTE DE SOUZA [address] [place], [address], [facility] 3 10:47:08 Tendiniti s of left shoulder 567254908557 9103 Active 2022 Sukhwinder Block DO [address] [place], [address], [facility] 3 16:49:31 Benign prostatic hyperplas ia 493535318 Active 2022 JANETTE DE SOUZA [address] [place], [address], [facility] 3 15:57:46 Increased frequency of urination 394377034 Active 2023 JANETTE DE SOUZA [address] [place], [address], [facility] 5 14:40:58 Congestiv e heart failure 92013173 Active 2023 JANETTE DE SOUZA [address] [place] [address], [address], [facility] 4 14:40:27 Psoriasis 1041258 Active 2023 JANETTE DE SOUZA [address] [place] [address], [address], [facility] 4 14:40:55 Bilateral tinnitus 819596286731 2 Active 2023 JANETTE DE SOUZA [address] [place] [address], [address], [facility] 4 14:33:04 Bilateral hearing loss 98786098 Active 2023 JANETTE DE SOUZA [address] [place] [address], [address], [facility] 4 12:24:34 Bilateral hearing loss 23497266 Active 2023 JANETTE DE SOUZA [address] [place] [address], [address], [facility] 4 12:26:44 Acute kidney injury 52798214 Active 2023 JANETTE DE SOUZA [address] [place] [address], [address], [facility] 4 13:43:42 Purpuric rash 176068284 Active 2024 JANETTE DE SOUZA [address] [place] [address], [address], [facility] 5 14:48:16 Pain of knee region 7694763672 Active 2024 JANETTE DE SOUZA [address] [place], [address], [facility] 5 14:50:26 Hypoglyce nahomy due to type 2 diabetes mellitus 422326749540 103 Active 2024 JANETTE DE SOUAZ [address] [place], [address], [facility] 5 14:54:23 Pigmented skin lesion 995456357 Active 2024 JANETTE DE SOUZA [address] [place], [address], [facility] 5 08:49:03 Nocturia 723074079 Active 2024 JANETTE DE SOUZA [address] [place], [address], [facility] 5 14:38:51 Problem Notes None recorded. Procedures Surgical History Date Name Laterality Status Provider Name and Address Organization Details Recorded Time 023 Corticosteroid Injection completed Sukhwinder Block DO [address] [place], [address], [facility] 10/01/2022 16:48:57 Imaging Results [...] Available Not Avai lable [employer] Mei 3 Wheeler Please use as directed. 03/11 completed Not Available Not Available Not Available Vitals Date Recorded Body height Body mass index (BMI) Body weight Heart rate Oxygen saturation Systolic And Diastolic Provider Name and Address Organization Details Last Updated DateTime 172.72 cm 51.5 kg/m2 396059. 81 g 70 /min 98 % 120/70 mm[Hg] [facility] 14:18:27 Social History Question Answer Notes LastModified by Organizat ion Details LastModified Time Tobacco Smoking Status Never Smoker Not Available [facility] 05/24/2020 03:36:23 What Was The Date Of Your Most Recent Tobacco Screening? 05/10/2025 [email or web address] Information not available 05/10/2025 Sex: Unknown Functional Status Question Answer Note LastModified by Organization D etails LastModified Time Do you or have you ever used any other forms of tobacco or nicotine? No [email or web address] Information not available 06/17/2023 Mental Status None [...] mcg/0.3 mL dose 1 completed Not Available [facility] 05/09/2022 19:53:19 COVID-19, mRNA, LNP-S, PF, 30 mcg/0.3 mL dose 1 completed Not Available [facility] 05/09/2022 19:53:19 influenza, unspecified formulation 2 completed Blanca torres [facility] 06/12/2022 10:14:37 COVID-19, mRNA, LNP-S, PF, 30 mcg/0.3 mL dose 2 completed Blanca torres [facility] 06/12/2022 10:14:56 Influenza, split virus, quadrivalent, preservative 8 completed Not Available [facility] 05/09/2022 19:53:19 tetanus toxoid, unspecified formulation 3 completed Not Available [facility] 05/09/2022 19:53:19 Influenza, split virus, quadrivalent, preservative 9 completed Not Available [facility] 05/09/2022 19:53:19 Past Encounters Encounter ID Performer Location Encounter Start Date Encounter Closed Date Diagnosis/Indication Diagnosis SNOMED-CT Code Diagnosis ICD10 Code Diagnosis IMO Codes Diagnosis Note [id number] Sukhwinder Block [facility] [address],[place] [address] 05/10/2025 14:09:38 05/10/2025 14:47:28 Depression screening 763237013 Z13.31 0 Nocturia 582315987 R35.1 28428 will switch out to higher dose of the medication Increased frequency of urination 780786447 R35.0 01105 will switch out to higher dose of the medication Health Concerns Section Related Observation LastModified by Organization Detai ls LastModified Time None Recorded Concern Status LastModified by Organization Details LastModified Time None Recorded Payers Encounter Date Sequence Insurance Name Policy Number Policy Nation Covered Member ID Nation Member ID Guarantor Name 05/10/2025 2 [place] [id number] George Guy [id number] George Guy 05/10/2025 1 [place] [facility] George Guy [id number] George Guy Notes Date Note Type [...] for other problems JANETTE DE SOUZA [address] [facility], [place], [address], [facility] 05/10/2025 14:47:01
--- OUTSIDE RECORDS SUMMARY | 2025-07-05 21:34 | XMS_ITS | Continuity of Care Document ---
Author Organization [place] - [facility], [facility] Address [address] [place] [address] Care Team Providers Care Director Non Profit Name Role Phone ROHITINDU Referring Provider LEE VITAL Primary Care Provider Assessment Encounter Date Assessment Date Assessment LastModified by Organization Details LastModified Time 05/27/2025 05/27/2025 Left-sided tinnitus, high-frequency hearing loss. The patient underwent a hearing test today, which demonstrated high-frequency hearing loss slightly worse at one frequency in the left ear compared to the right ear. This finding is consistent with the prior test performed in [place] approximately two gruber ago, with no significant changes noted. Given the history of asymmetric noise exposure and the small difference between ears with symmetric WRS, no concerning pathology is suspected. An MRI is not strongly recommended at this time, but the patient was offered the option if desired. The patient expressed comfort with not pursuing imaging. The patient was advised to undergo another hearing test in one year to monitor for changes. If stable, testing may be spaced to every two to three years thereafter. Recommendations for managing tinnitus include using background music or a fan to alleviate symptoms. The patient was educated on strategies for shared television use, such as enabling captions or using devices like TV ears for his , who may have worsening hearing. No hearing aids are indicated at this time. [email or web address] Not available 05/28/2025 17:10:16 Plan of Treatment Reminders Order Date Submit [...] None recorded. Patient TargetsNo targets recorded. Patient Instructions Encounter Date Encounter Id Patient Instructions Last Modified By Organization Details Last Modified Time 05/27/2025 [id number] Schedule a follow-up hearing test in one year. Use background music or a fan to manage tinnitus symptoms. Consider enabling captions or using TV ears for shared television use. [email or web address] Not available 05/27/2025 11:31:17 Please note: Parts of this encounter note have been generated by AI based on audio conversation. Patient consent was required prior to utilizing this technology. Content review was required prior to finalizing the note. [email or web address] Not available 05/27/2025 11:31:17 Reason for Referral None Reported. Results Created [...] Time Sensorineural hearing loss of bilateral ears 964056120 Active [address], [address], [facility] 11:11:31 Problem Notes None recorded. Procedures Surgical History Date Name Laterality Status Provider Name and Address Organization Details Recorded Time 05/27/2025 Comp Audio with Tymps - 33487 & 99884 completed [email or web address], [address], [facility] 05/27/2025 10:59:25 Imaging Results None recorded. Procedure [...] Updated DateTime 05/27/2025 172.72 cm 50.9 kg/m2 644764.44 g Marixa Cordero [facility] 05/27/2025 11:15:48 Social History None recorded. Functional Status None recorded. Mental Status None recorded. Family History Nothing Reported. Medical History Condition Response Heart Problems Y Arthritis Y Hypertension Y Past Encounters Encounter ID Performer Location Encounter Start Date Encounter Closed Date Diagnosis/Indication Diagnosis SNOMED-CT Code Diagnosis ICD10 Code Diagnosis IMO Codes Diagnosis Note [id number] LANEY KILGORE MD [facility] on [address] [place] [address] 05/27/2025 10:10:10 05/31/2025 10:26:57 Sensorineural hearing loss of bilateral ears 027904567 H90.3 48444087 Audiologic al evaluation results: Normal sloping to moderate sensorineu ral hearing loss at 8kHz with excellent word recognitio n, bilaterall y.Asymmetr y present at 6kHz with L>R. Tympanomet ry:Right Ear:Type ALeft Ear:Type A [id number] MARLON RAYA [facility] on [address] [place] [address] 05/27/2025 10:59:13 05/27/2025 11:31:54 Sensorineural hearing loss of bilateral ears 831394582 H90.3 90959300 Audiologic al evaluation results: Normal sloping to [...] Member ID Guarantor Name 05/27/2025 1 [place]: [employer] George Guy [id number] George Guy 05/27/2025 2 BCBS-ID [facility] [id number] George Guy [id number] George Guy Notes Date Note Type Note Provider Name and Address Organization Details Recorded Time 05/27/2025 text/html Audiological Cecilia luation HPIReported by PatientTinnitusFor tinnitus reported, patient reportsboth ears (worse in the left ear). For sounds like, patient reportshigh pitched. MARLON RAYA [address] [place] [address], [address], [facility] - [facility] 05/27/2025 11:14:34 05/27/2025 text/html George Guy is a 65-year-old male who presents for left-sided tinnitus and hearing concerns. He reports noticing symptoms approximately five to six years ago. 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 He drinks one cup of caffeine daily and does not add salt to his diet. He has a history of elevated blood sugars, with an A1c of 6.6 reported a year ago. He has not undergone head imaging previously. He underwent a hearing test in [place] last year, and another test was performed today. He has sleep apnea and uses a CPAP device. He notes occasional difficulty hearing when there are barriers, such as bain, between him and the source of sound. LANEY KILGORE MD [address] [place] [address], [place], [address], [place] - [facility] 05/28/2025 17:10:33
--- OUTSIDE RECORDS SUMMARY | 2025-07-05 21:34 | XMS_ITS | Data Portability ---
Author Organization [place] - [facility], [facility] Address [address] [place] [address] Care Team Providers Care Practice Business Asst Name Role Phone INDU BEE Referring Provider LEE VITAL Primary Care Provider [phone] Assessment Encounter Date Assessment Date Assessment LastModified by Organization Details LastModified Time 05/27/2025 05/27/2025 Left-sided tinnitus, high-frequency hearing loss. The patient underwent a hearing test today, which demonstrated high-frequency hearing loss slightly worse at one frequency in the left ear compared to the right ear. This finding is consistent with the prior test performed in [place] approximately two gruber ago, with no significant [...] this time. [email or web address] Not available 05/28/2025 17:10:16 05/27/2025 05/27/2025 Follow up with referring provider. [email or web address] Not available 05/27/2025 10:59:24 Plan of Treatment [...] By Organization Details Last Modified Time 05/27/2025 [id number] Schedule a follow-up hearing test in one [...] Time Sensorineural hearing loss of bilateral ears 952993369 Active 2024 JANELL YADAV [employer] [address] [place] [address], [address], [facility] 11:11:31 Problem Notes None recorded. Procedures Surgical History Date Name Laterality Status Provider Name and Address Organization Details Recorded Time 05/27/2025 Comp Audio with Tymps - 21212 & 76732 completed [employer], [employer] [address] [place] [address], [address], [facility] 05/27/2025 10:59:25 Imaging Results None recorded. [...] Updated DateTime 05/27/2025 172.72 cm 50.9 kg/m2 538062.44 g Marixa Cordero [facility] 05/27/2025 11:15:48 Social History None recorded. Functional Status None recorded. Mental Status None recorded. Family History Nothing Reported. Medical History Condition Response Heart Problems Y Arthritis Y Hypertension Y Past Encounters Encounter ID Performer Location Encounter Start Date Encounter Closed Date Diagnosis/Indication Diagnosis SNOMED-CT Code Diagnosis ICD10 Code Diagnosis IMO Codes Diagnosis Note [id number] LANEY KILGORE MD [facility] on [address] [place] [address] 05/27/2025 10:10:10 05/31/2025 10:26:57 Sensorineural hearing loss of bilateral ears 577949369 H90.3 79747656 Audiologic al evaluation results: Normal sloping to moderate sensorineu ral hearing loss at 8kHz with excellent word recognitio n, bilaterall y.Asymmetr y present at 6kHz with L>R. Tympanomet ry:Right Ear:Type ALeft Ear:Type A [id number] MARLON RAYA [facility] [place] [address] [place] [address] 05/27/2025 10:59:13 05/27/2025 11:31:54 Sensorineural hearing loss of bilateral ears 244481107 H90.3 95732675 Audiologic al evaluation results: Normal sloping to [...] Member ID Nation Member ID Guarantor Name 06/02/2025 1 [place] [employer] George Guy [id number] George Guy 06/02/2025 2 BCBS-ID [facility] [id number] George Guy [id number] George Guy 06/02/2025 2 [place]) [id number] George Guy [id number] George Guy Notes Date Note Type Note Provider Name and Address Organization Details Recorded Time 05/27/2025 text/html Audiological Cecilia luation HPIReported by PatientTinnitusFor tinnitus reported, patient reportsboth ears (worse in the left ear). For sounds like, patient reportshigh pitched. JANELL YADAV, MARLON [address] [place] [address], [address], [facility] - [facility] 05/27/2025 11:14:34 05/27/2025 text/html Georgejason Guy is a 65-year-old male who presents [...] previously. He underwent a hearing test in [place] last year, and another test was performed today. He has sleep apnea and uses a CPAP device. He notes occasional difficulty hearing when there are barriers, such as bain, between him and the source of sound. LANEY KILGORE MD [address] [place] [address], [place], [address], [facility] - [facility] 05/28/2025 17:10:33
--- OUTSIDE RECORDS SUMMARY | 2025-07-05 21:34 | XMS_ITS | Clinical Summary ---
Author Organization [facility] [facility] Prior to 12/19/[address] [place] [address] Care Team Providers Care Customer Success Intern Name Role Phone Unavailable Primary Care Provider [...]
--- OUTSIDE RECORDS SUMMARY | 2025-07-05 21:34 | XMS_ITS | Patient Health Record ---
Author Organization [facility] Address [address] [place] [address] Care Team Providers Care Gas Blender Name Role Phone Umair JAMIL, Sukhwinder Primary Care Provider Tierra Quevedo Unavailable [phone] Allergies No Known Allergies Results Component Value Reference Range Notes HEMOGLOBIN A1C (GLYCOHEMOGLO BIN) Reviewed date:11/25/2024 01:49:33 [...] Polyneuropathy due to type 2 diabetes mellitus (149076445) Type 2 diabetes mellitus with polyneuropathy (E11.42) Active confirmed Vital Signs Blood pressure diastolic 75 mm Hg 05/11/2025 Height 5ft8in in 05/11/2025 Blood pressure systolic 128 mm Hg 05/11/2025 Weight 334 lbs 05/11/2025 BMI 50.78 kg/m2 05/11/2025 Encounters Encounter Location Date Provider Diagnosis [address] [address] 08/26/2024 [facility] Tinea unguium B35.1 and Type 2 diabetes mellitus with polyneuropathy E11.[address] [address] 11/25/2024 [facility] Tinea unguium B35.1 and Type 2 diabetes mellitus with polyneuropathy E11.[address] [address] 05/11/2025 [facility] Tinea unguium B35.1 and Type 2 diabetes mellitus with polyneuropathy E11.42 [facility] [place] [address] [place] [address] 02/16/2025 Tierra Rodriguez Assessments Encounter Date Diagnosis (ICD Code) Assessment Notes Treatment Notes Treatment Clinical Notes Section Notes 08/26/2024 Tinea unguium (ICD-10 - B35.1) 11/25/2024 [...] Details Provider Name:Tierra martinez, 07/20/2025 02:30:00 PM, [address] [place] [address], [phone], Insurance Providers Payer Name Payer Address Payer Phone Subscriber Number Group Number Insured Name Patient Relationship to Insured Coverage Start Date Coverage End Date Medicare National [employer] [address] [facility] [place] [address] [id number] George Guy Self - patient is the insured [facility] [address] [place] [address] [id number] George Guy Self - patient is the insured Medical (General) History Medical History History ICD Code Arthritis Back,Hip,and Knee pain Broken bones Diabetic Diverticulosis Heart disease High blood pressure Psoriasis/eczema Reflux ( GERD) Warts Measles Chicken pox Surgical History Surgery Date(Month/Year) ankle surgery 03/1979
== END 2025-07-05 15:48 | disposition home or self-care (01) ==
LOC: HO.HPS 15:00
PROVIDERS: PCP Internal Medicine; Visit Provider Internal Medicine
DX: E66.01 Morbid (severe) obesity due to excess calories (principal); G47.33 Obstructive sleep apnea (adult) (pediatric); Z99.89 Dependence on other enabling machines and devices
CPT/HCPCS: 99213

== ENCOUNTER → 2025-07-05 15:00 | Outpatient (BNVA) | payer MEDICARE, SELFPAY | PROVIDERS: PCP Internal Medicine; Visit Provider Internal Medicine | DX: E66.01 Morbid (severe) obesity due to excess calories (principal); G47.33 Obstructive sleep apnea (adult) (pediatric); Z99.89 Dependence on other enabling machines and devices | CPT/HCPCS: 99212 ==